=== PATIENT | male | born 1950 | race Caucasian/White ===

== ENCOUNTER 2016-05-21 12:40 | Inpatient (IN) | payer OTHER ==
--- NOTE | 2016-05-21 12:46 | PDOC ---
History of Present Illness <IsmaelArtur - Last Filed: 05/21/16 18:00> - General History Source: Patient Exam Limitations: No Limitations - History of Present Illness Initial Comments: 05/21/16 13:13 The patient is a 65 year old male with significant past medical history of hypertension, hyperlipidemia, CAD s/p CABG, a-fib, CKD, BPH, gout, ETOH use who presents to the emergency department with difficulty walking for the last 4 days. The patient was brought in by ambulance from his assisted living facility. He states that he has been unable to walk secondary to weakness for the last 4 days. He denies any history of fall, injury, or trauma to his low back or bilateral legs. The patient was last discharged from [facility] about 2 months ago, however he ran out of all of his medications and have not taken any medication for the last 4 days. He has not gotten out of bed, eaten or drank for the last 4 days. The patient has a history of alcohol abuse, however he states he has not had a drink in 4-5 months. The patient denies any associated numbness or tingling. The patient denies any abdominal pain, nausea, or vomiting. He denies any chest pain or shortness of breath. The patient denies recent illness, fevers, or chills. <Pilar Peck - Last Filed: 05/27/16 23:45> - General Stated Complaint: UNABLE TO WALK Time Seen by Provider: 05/21/16 12:45 Past History - Past Medical History Anemia: Yes (possible ) Asthma: No Cancer: No Cardiac Disorders: Yes CVA: No COPD: No CHF: No (possible ) Dementia: No Diabetes: No GI Disorders: No Disorders: No HTN: Yes Kidney Stones: No Liver Disease: No Suicide Attempt (Hx): No Seizures: No Thyroid Disease: No - Surgical History Cardiac Surgery: Yes (tripple bypass) Orthopedic Surgery: (right arm surgery in 6th grade) - Family Disease History Family Disease History: Heart Disease: Father - Reproductive History Testicular Surgery: No - Immunization History Immunization Up to Date: No - Psycho/Social/Smoking Cessation Hx Anxiety: No Suicidal Ideation: No Smoking History: Never smoked Have you smoked in the past 12 months: No 'Breaking Loose' booklet given: 07/29/15 Hx Alcohol Use: Yes Drug/Substance Use Hx: No Substance Use Type: Alcohol Hx Substance Use Treatment: Yes <Artur Guevara - Last Filed: 05/21/16 18:00> <Pilar Peck - Last Filed: 05/27/16 23:45> - Past Medical History Allergies/Adverse Reactions: Allergies Allergy/AdvReac Type Severity Reaction Status Date / Time No Known Allergies Allergy Verified 05/21/16 12:52 Home Medications: Ambulatory Orders Metoprolol Succinate [Toprol XL -] 100 mg PO BID 05/21/16 Omeprazole 20 mg PO DAILY 05/21/16 Rosuvastatin [Crestor -] 10 mg PO DAILY 05/21/16 Tamsulosin HCl [Flomax -] 0.4 mg PO DAILY 05/21/16 Ascorbate Calcium [Vitamin C] 1,000 mg PO DAILY 05/22/16 Aspirin [ASA -] 81 mg PO DAILY 05/22/16 Allopurinol [Zyloprim -] 100 mg PO DAILY #10 tab 05/27/16 Ampicillin Trihydrate 500 mg PO TID #21 ml 05/27/16 Diltiazem Cd [Cardizem Cd -] 240 mg PO DAILY #30 cap.cd.24h 05/27/16 Folic Acid - 1 mg PO DAILY tablet 05/27/16 Lactobacillus Acidophilus [Bacid -] 1 each PO BID #60 capsule 05/27/16 Rosuvastatin [Crestor -] 10 mg PO DAILY tablet 05/27/16 Review of Systems - Review of Systems Able to Perform ROS?: Yes Comments:: 05/21/16 13:13 GENERAL/CONSTITUTIONAL: +Weakness. No fever or chills. HEAD, EYES, EARS, NOSE AND THROAT: No change in vision. No ear pain or discharge. No sore throat. CARDIOVASCULAR: No chest pain or shortness of breath. RESPIRATORY: No cough, wheezing, or hemoptysis. GASTROINTESTINAL: No nausea, vomiting, diarrhea or constipation. GENITOURINARY: No dysuria, frequency, or change in urination. MUSCULOSKELETAL: No joint or muscle swelling or pain. No neck or back pain. SKIN: No rash NEUROLOGIC: No headache, vertigo, loss of consciousness, or change in strength/ sensation. ENDOCRINE: No increased thirst. No abnormal weight change. HEMATOLOGIC/LYMPHATIC: No anemia, easy bleeding, or history of blood clots. ALLERGIC/IMMUNOLOGIC: No hives or skin allergy. <Pilar Peck - Last Filed: 05/27/16 23:45> *Physical Exam - Vital Signs Last Vital Signs Temp Pulse Resp BP Pulse Ox 99.8 F H 123 H 18 164/98 100 05/21/16 12:53 05/21/16 12:53 05/21/16 12:53 05/21/16 12:53 05/21/16 12:53 - Physical Exam Comments: 05/21/16 13:13 GENERAL: Awake, alert, and fully oriented, in no acute distress HEAD: No signs of trauma EYES: PERRLA, EOMI, sclera anicteric, conjunctiva clear ENT: Auricles normal inspection, hearing grossly normal, nares patent, oropharynx clear without exudates. +Dry mucosa. NECK: Normal ROM, supple, no lymphadenopathy, JVD, or masses LUNGS: Breath sounds equal, clear to auscultation bilaterally. No wheezes, and no crackles HEART: +Irregularly irregular. Normal S1 and S2, no murmurs, rubs or gallops ABDOMEN: Soft, nontender, normoactive bowel sounds. No guarding, no rebound. No masses EXTREMITIES: +Right 2nd digit with paronychia abscess. Normal range of motion. No clubbing or cyanosis. No cords, erythema, or tenderness NEUROLOGICAL: Cranial nerves II through XII grossly intact. Normal speech SKIN: Warm, Dry, normal turgor, no rashes or lesions noted. <Pilar Peck - Last Filed: 05/27/16 23:45> Procedures - Incision and Drainage I&D Site: Right: Paronychia (right index finger) Betadine cleansed: Yes Anesthesia: 1% Lidocaine Volume(ml): 10 (10cc pus expressed) Attempts: 1 Plain Packing: No Complications: none Dressing: No <Pilar Peck - Last Filed: 05/27/16 23:45> Heart Score/ECG Review - ECG Intrepretation Comment:: 05/21/16 13:14 Vent rate: 158 bpm NC interval: 138 ms QRS duration: 78ms A-fib/flutter Non-specific ST changes <Pilar Peck - Last Filed: 05/27/16 23:45> ED Treatment Course - LABORATORY CBC & Chemistry Diagram: 05/21/16 13:16 05/21/16 13:16 <Artur Guevara - Last Filed: 05/21/16 18:00> - LABORATORY CBC & Chemistry Diagram: 05/27/16 15:30 05/27/16 05:35 <Pilar Peck - Last Filed: 05/27/16 23:45> Medical Decision Making - Medical Decision Making 05/21/16 16:33 65 yo M presents with generalized weakness. Admitted to hospitalist service for UTI, generalized weakness, paronychia. Patient may need possible placement into rehab facility, assisted living. 05/21/16 17:30 Changed admission to inpatient telemetry. We have been unable to control his heart rate with betablockers. <Pilar Peck - Last Filed: 05/27/16 23:45> *DC/Admit/Observation/Transfer - Discharge Dispostion Admit: Yes <Artru Guevara - Last Filed: 05/21/16 18:00> - Attestations Scribe Attestion: 05/21/16 12:57 Documentation prepared by Pilar Peck, acting as regional medical director for Artur Guevara DO. <Pilar Peck - Last Filed: 05/27/16 23:45> Diagnosis at time of Disposition: Generalized weakness, Dehydration, Atrial fib/flutter, transient, Atrial fibrillation with RVR, Atrial flutter with rapid ventricular response Paronychia Qualifiers: Laterality: right Qualified Code(s): L03.011 - Cellulitis of right finger - Discharge Dispostion Disposition: NURSING HOME FACILITY Condition at time of disposition: Improved - Prescriptions
[2016-05-21 12:57] VITALS: BMI 24.0
[2016-05-21] MEDS ORDERED: SODIUM CHLORIDE 1,000 ML IV SCH (13:15)
[2016-05-21 13:41] LABS: BASOPHIL 0.2 % (0-2.0); MCH 31.8 pg (25.7-33.7); MCHC 32.8 g/dl (32.0-35.9); MEAN CELL VOLUME 96.9 fl (80-96); MEAN PLT VOLUME 8.4 fl (7.5-11.1); NEUTROPHILS 91.8 % (42.8-82.8); PLATELET COUNT 530 K/MM3 (134-434); RDW 16.9 % (11.9-15.9)
[2016-05-21 13:52] LABS: INR 1.33 (0.82-1.09); PROTHROMBIN TIME (PATIENT) 14.7 SEC (9.98-11.88)
[2016-05-21 14:11] LABS: ALBUMIN 2.3 g/dl (3.4-5.0); CREATININE 1.7 mg/dL (0.7-1.3)
[2016-05-21 14:13] LABS: BILIRUBIN,TOTAL 1.3 mg/dL (0.2-1.0); TOT PROT 7.1 g/dl (6.4-8.2)
[2016-05-21] MEDS ORDERED: NITROGLYCERIN SUBLINGUAL 1/150 0.4 MG TAB SL ONE (14:14)
[2016-05-21] MEDS ORDERED: ceFAZolin 2 GRAM PREMIX BAG IVPB ONE (14:45)
[2016-05-21 16:19] LABS: URINE APPEARANCE SLCLOUDY; URINE BILIRUBIN NEGATIVE (NEGATIVE); URINE COLOR DKYELLOW; URINE GLUCOSE (UA) 1+ (NEGATIVE); URINE KETONE NEGATIVE (NEGATIVE); URINE NITRITE NEGATIVE (NEGATIVE); URINE UROBILINOGEN 4.0 E.U/dl E.U./dl (0.2-1.0)
[2016-05-21 16:21] LABS: URINE BLOOD 1+ (NEGATIVE); URINE LEUK ESTERASE TRACE (NEGATIVE); URINE PROTEIN 3+ (NEGATIVE)
[2016-05-21 16:22] LABS: URINE MUCUS RARE; URINE RBC 30 /hpf (0-3); URINE WBC 106 /hpf (3-5)
[2016-05-21] MEDS ORDERED: METOPROLOL SUCCINATE 50 MG TAB.SR.24H (FP) PO ONE (16:43)
[2016-05-21] MEDS ORDERED: METOPROLOL SUCCINATE 50 MG TAB.SR.24H (FP) ONE (16:47)
[2016-05-21] MEDS ORDERED: METOPROLOL TARTRATE 50 MG TABLET (FP) PO ONE (17:23)
[2016-05-21] MEDS ORDERED: METOPROLOL TARTRATE 50 MG TABLET (FP) ONE (17:26)
[2016-05-21] MEDS ORDERED: SODIUM CHLORIDE 1,000 ML IV STA (17:30)
--- NOTE | 2016-05-21 17:35 | HP ---
CHIEF COMPLAINT: unable to walk PCP: Dr. Torres Pipe Setter: Kaley Flores Cylinder Checker: Dr. Metz And Taxi Instructor Bus Trolley: [address] [place] [address] ([address] Camarena) HISTORY OF PRESENT ILLNESS: 65 yr old man with HTN, gout, CKD stage 2, afib, hx of triple bypass, and ETOH abuse BIBEMS from assisted living facility after being found immobile in his bed by a friend. For past 2 two weeks he has progressively developed difficulty getting out of bed and generalized weakness. With effort, last week he was able to get to the bathroom but in the last 4 days he has been unable to move due to joint pain and generalized weakness. He has been laying in bed without food, water or medications. He feels that symptoms first started 4 months ago when he stopped drinking alcohol and gradually he has become weaker and weaker. Notes weight loss from 198 to 167 due to poor appetite in past 4 months. Denies loss of consciousness, fall, head trauma, slurred speech, hemiparalysis, loss of muscle tone, back injury, chest pain, SOB. appears confused, towards the end of the conversation he said I could see his medications when I come to his house tomorrow, then said he stopped drinking on apr 11 2016, when expressed that the time frame of 4 months and apr 11 do not coincide as the same time frame he appeared confused. Called pharmacist, who is familiar with patient. Pharmacist had called patient last week about not having refills for medications since january 2016, at the time pharmacist says patient was alert, coherent, answering questions appropriately and had not expressed any distress. Patient is a poor historian. ER course was notable for: (1) I&D of abscess with right index finger, 10cc of pus expressed (2) hand xray (3) ancef 1gm Recent Travel: none PAST MEDICAL HISTORY: HTN Gout CKD stage 2 Afib ETOH abuse - no seizures with withdrawals, just the "shakes" 2-3 days post drinking. Last colonoscopy 5 yrs ago, benign polyps. PAST SURGICAL HISTORY: triple bypass ([facility] 2012) Social History: lives in assisted living facility, Smoking: denies Alcohol:started age [age], mainly binge drinks, upto 2 quarts of vodka in a sitting, 1-2x per week, (abstinent for 4 months 3 days) Drugs: denies Allergies No Known Allergies Allergy (Verified 05/21/16 12:52) HOME MEDICATIONS: last fill 01/[address] Lock [phone] omeprazole 20 1 daily procardia xl 30 1 tab qd toprol xl 100mg 1 t bid flomax .4 1 t daily losartan/hctz 50/12.5 1 qd folic acid 1t daily crestor 10mg 1 daily colchicine 0.6 1 daily spoke last week with pharmacist, coherent, alert, oriented. apparently scheduled to for dr appointment. Medication Instructions Recorded Aspirin [ASA -] 81 mg PO DAILY 03/29/15 Acetaminophen [Tylenol .Regular 650 mg PO Q6H PRN #0 tablet 01/06/16 Strength -] Folic Acid - 1 mg PO DAILY #30 tablet 01/06/16 Thiamine HCl [Vitamin B1 -] 100 mg PO DAILY #30 tablet 01/06/16 Colchicine 0.6 mg PO DAILY 01/17/16 Omeprazole 20 mg PO DAILY 01/17/16 Rosuvastatin Calcium [Crestor] 10 mg PO DAILY 01/17/16 Tamsulosin HCl 0.4 mg PO DAILY 01/17/16 Allopurinol [Zyloprim -] 100 mg PO DAILY #30 tablet 02/29/16 Ampicillin Trihydrate 500 mg PO Q8H #15 capsule 02/29/16 Diltiazem Cd [Cardizem Cd -] 120 mg PO DAILY #30 cap.cd.24h 02/29/16 Metoprolol Succinate [Toprol XL -] 100 mg PO BID #60 tab.sr.24h 02/29/16 Multivitamins [Multivit ([facility] 1 tab PO DAILY #30 tab 02/29/16 Formulary)] Unobtainable 05/21/16 REVIEW OF SYSTEMS CONSTITUTIONAL: Present: generalized weakness, loss of appetite, weight change Absent: fever, chills, diaphoresis, malaise, HEENT: Absent: rhinorrhea, nasal congestion, throat pain, throat swelling, difficulty swallowing, mouth swelling, ear pain, eye pain, visual changes CARDIOVASCULAR: Present: irregular heart rate, Absent: chest pain, syncope, palpitations, lightheadedness, peripheral edema RESPIRATORY: Absent: cough, shortness of breath, dyspnea with exertion, orthopnea, wheezing, stridor, hemoptysis GASTROINTESTINAL: Absent: abdominal pain, abdominal distension, nausea, vomiting, diarrhea, constipation, melena, hematochezia GENITOURINARY: Absent: dysuria, frequency, urgency, hesitancy, hematuria, flank pain, genital pain MUSCULOSKELETAL: Present: arthralgia, joint swelling, Absent: myalgia, back pain, neck pain SKIN: Absent: rash, itching, pallor HEMATOLOGIC/IMMUNOLOGIC: Absent: easy bleeding, easy bruising, lymphadenopathy, frequent infections ENDOCRINE: Absent: unexplained weight gain, unexplained weight loss, heat intolerance, cold intolerance NEUROLOGIC: Absent: headache, focal weakness or paresthesias, dizziness, unsteady gait, seizure, mental status changes, bladder or bowel incontinence PSYCHIATRIC: Absent: anxiety, depression, suicidal or homicidal ideation, hallucinations. PHYSICAL EXAMINATION Vital Signs - 24 hr 05/21/16 12:53 Temperature 99.8 F H Pulse Rate 123 H Respiratory 18 Rate Blood Pressure 164/98 O2 Sat by Pulse 100 Oximetry (%) GENERAL: Awake, alert, and oriented to person, age, date, location, in no acute distress. Malodorous. HEAD: Normal with no signs of trauma. EYES: Pupils equal, round and reactive to light, extraocular movements intact, sclera anicteric, conjunctiva clear. No lid lag. EARS, NOSE, THROAT: Ears normal, nares patent, oropharynx clear without exudates. moist mucous membranes. NECK: Normal range of motion, supple without lymphadenopathy, JVD, or masses. no bruits LUNGS: Breath sounds equal, clear to auscultation bilaterally. No wheezes, and no crackles. No accessory muscle use. HEART: irregular, tachycardic, normal S1 and S2 without murmur, rub or gallop. ABDOMEN: Soft, nontender, not distended, normoactive bowel sounds, no guarding, no rebound, no masses. MUSCULOSKELETAL: No CVA tenderness. UPPER EXTREMITIES: 2+ pulses, warm, well-perfused. No cyanosis. cap refill <2 seconds. No peripheral edema. 5/5 strength at shoulder with extension and flexion, 3/5 biceps, triceps. ttp with soft mobile erythematous mass at right elbow, no joint crepitus in b/l UE. right index finger with erythematous ttp draining abscess. multiple PIP and DIP joints with small ttp mobile nodules. unable to make a full fist in b/l hands. LOWER EXTREMITIES: 2+ pulses, warm, well-perfused. No calf tenderness. b/l knees extremely ttp no erythema, with warmth medially,no effusion, unable to bend knee, passive motion limited due to pain. hips no ttp. 1/5 strength in b/l LE at hips. left foot with second hammertoe. right foot with eschar on DIP of second toe. sensation intact throughout legs. NEUROLOGICAL: Cranial nerves II-XII intact. Normal speech. SKIN: Warm, dry, normal turgor, no rashes noted. Laboratory Results - last 24 hr 05/21/16 05/21/16 05/21/16 13:16 13:16 13:16 WBC 20.0 H D RBC 4.11 Hgb 13.1 D Hct 39.8 D MCV 96.9 H MCHC 32.8 RDW 16.9 H D Plt Count 530 H D MPV 8.4 D Neutrophils % 91.8 H D Lymphocytes % 3.3 L D Monocytes % 4.7 Eosinophils % 0.0 D Basophils % 0.2 INR 1.33 H D Sodium 136 Potassium 4.6 Chloride 98 Carbon Dioxide 23 Anion Gap 15 BUN 39 H Creatinine 1.7 H Creat Clearance w eGFR 40.65 Random Glucose 110 H D Uric Acid Calcium 11.0 H D Total Bilirubin 1.3 H D AST 40 H D ALT 62 D Alkaline Phosphatase 140 H D Total Protein 7.1 Albumin 2.3 L D Lipase 81 05/21/16 05/21/16 05/21/16 13:16 15:45 16:11 Uric Acid 10.0 H D Urine Color Dkyellow Urine Appearance Slcloudy Urine pH 6.0 Ur Specific [place] 1.020 Urine Protein 3+ H D Urine Glucose (UA) 1+ H Urine Ketones Negative Urine Blood 1+ H Urine Nitrite Negative Urine Bilirubin Negative Urine Urobilinogen 4.0 e.u/dl Ur Leukocyte Esterase Trace H Urine RBC 30 Urine WBC 106 Ur Epithelial Cells Rare Urine Mucus Rare Alcohol, Quantitative < 5.0 ASSESSMENT/PLAN: 65 yr old man with afib, HTN, CAD s/p CABG, gout, ETOH abuse BIBEMS for 4 days of immobility admitted to telemetry for atrial flutter, sepsis from UTI/finger abscess and gout. - joint pain likely from gout #Sepsis (tachycardia, wbc of 22) UTI(u/a with leuk +, elevated WBC) and Abscess in right index finger - zosyn 2.25 q6h (for broader coverage, previous UTIs with e.faecalis and pseudomonas) -- renal dosing - Dr. montano consulted - IVF NS @100mls/hr - s/p I &D - wound cx and ucx pending - esr and hand xray to r/o osteomyelitis - continous bedrest - physical therapy once pain controlled #Dehydration/generalized weakness - likely due to immobility from joint pain due to acute gout flare - IVF NS @100mls/hr - check TSH level #Gout (elevated uric acid level, multiple joints with tophi and tenderness) - prednisone 60mg daily - although NSAIDs better for pain control for acute gout, given renal impairment would limit NSAID use - will hold colchicine due to renal impairment #Afib/Aflutter on EKG currently and Hx - CHADVASC 2 (age and HTN), no anticoagulation given hx of noncompliance, hx of falls and ETOH abuse. - past home medications restarted, procardia and toprol. - hold diuretics given recent dehydration - Dr. Ni consulted #HTN - toprol xl 100mg po bid #BPH - flomax .4 1 tab daily #CAD - crestor 10mg 1 tab daily #Etoh abuse - not currently in withdrawl, ETOH level <5 - CIWA 0 - MVI - folic acid DVT - heparin TID Diet: low sodium Visit type - Emergency Visit Emergency Visit: Yes ED Registration Date: 05/21/16 Care time: The patient presented to the Emergency Department on the above date and was hospitalized for further evaluation of their emergent condition. - New Patient This patient is new to me today: Yes Date on this admission: 05/21/16 - Critical Care Critical Care patient: No
[2016-05-21] MEDS: SODIUM CHLORIDE 1,000 ML IV SCH (18:27)
--- NOTE | 2016-05-21 18:31 | PN ---
Teaching Attending Note Name of Resident: Michael Ferguson ATTENDING PHYSICIAN STATEMENT I saw and evaluated the patient. I reviewed the resident's note and discussed the case with the resident. I agree with the resident's findings and plan as documented. SUBJECTIVE: This is a 65-year-old man with a history of alcohol abuse, HTN, hyperlipidemia, atrial flutter, CAD, CABG, gout, BPH, stage 3 CKD who came to the ER complaining of weakness. He says he has not been able to get out of bed for the last 4 days. He says he has not been eating or drinking. He denies using alcohol in the last 4 months. He denies fever, chills, chest pain, cough, shortness of breath, palpitations, abdominal pain, nausea, vomiting, dysuria. He has not been taking his medications since he ran out. OBJECTIVE: Vital Signs Period Temp Pulse Resp BP Sys/Reed Pulse Ox Last 24 Hr 99.8 F 123 18 164/98 100 HEART: Irregular, tachycardic LUNGS: Clear ABDOMEN: Soft, non-tender, non-distended, normal BS EXTREMITIES: No edema ASSESSMENT AND PLAN: This is a 65-year-old man with a history of alcohol abuse, HTN, hyperlipidemia, atrial flutter, CAD, CABG, gout, BPH, stage 3 CKD who presents to the ER with generalized weakness stating he has been unable to get out of bed and has not been eating or drinking x 4 days. 1. Sepsis secondary to right 2nd finger abscess, UTI - I&D done in ER - follow up culture - Follow up urine culture - IV fluid - Start Zosyn (history of E. faecalis, Pseudomonas UTIs) 2. Dehydration - IV fluid 3. Generalized weakness - Physical therapy 4. Acute gout - Start Prednisone - Hold Colchicine, NSAIDs secondary to elevated creatinine - Will need to resume Allopurinol once acute episode resolves 5. Atrial flutter - Resume Toprol XL, Cardizem CD for rate control - Monitor on telemetry - Not on anticoagulation secondary to falls, non-compliance 6. CAD, history of CABG - Restart aspirin, Toprol XL, Crestor 7. Hypertension - Restart Toprol XL, Cardizem CD 8. Hyperlipidemia - Restart Crestor 9. BPH - Restart Flomax 10. History of alcohol abuse - Patient states he has been sober x 4 months - Thiamine, folic acid, multivitamin 11. Stage 3 CKD - Creatinine stable
[2016-05-21 19:48] LABS: TROPONIN I < 0.02 ng/ml (0.00-0.05)
[2016-05-21] MEDS ORDERED: ACETAMINOPHEN 500 MG TABLET (FP) PO ONE (20:38)
[2016-05-21] MEDS: HEPARIN NA (PORCINE) 5,000 UNITS/ML 1ML VIAL SQ SCH (21:04)
[2016-05-21] MEDS ORDERED: METOPROLOL SUCCINATE 100 MG TAB.SR.24H (FP) PO SCH (22:00)
--- NOTE | 2016-05-21 22:54 | EKG ---
Test Reason : Blood Pressure : / mmHG Vent. Rate : 158 BPM Atrial Rate : 288 BPM P-R Int : 138 ms QRS Dur : 078 ms QT Int : 280 ms P-R-T Axes : 257 004 232 degrees QTc Int : 454 ms POOR DATA QUALITY, INTERPRETATION MAY BE ADVERSELY AFFECTED UNDETERMINED RHYTHM , POSSIBLY SVT WITH ABERRANT CONDUCTION ABNORMAL ECG WHEN COMPARED WITH ECG OF 25-FEB-2016 05:40, SIGNIFICANT CHANGES HAVE OCCURRED Confirmed by CONCHA KELSEY, KB ([id number]) on 05/21/2016 10:54:35 PM Referred By: Confirmed By:KB KERN MD
[2016-05-21] MEDS ORDERED: PIPERACILLIN/TAZOB 2.25 GM 50 ML IVPB ONE (23:00)
[2016-05-22] MEDS: HEPARIN NA (PORCINE) 5,000 UNITS/ML 1ML VIAL SQ SCH ×3 (05:09→21:16)
[2016-05-22] MEDS: SODIUM CHLORIDE 1,000 ML IV SCH ×2 (05:10→14:30)
[2016-05-22 07:26] LABS: BASOPHIL 0.3 % (0-2.0); EOSINOPHIL 0.2 % (0-4.5); MCHC 32.8 g/dl (32.0-35.9); MEAN CELL VOLUME 97.7 fl (80-96); MEAN PLT VOLUME 8.4 fl (7.5-11.1); NEUTROPHILS 87.9 % (42.8-82.8); PLATELET COUNT 389 K/MM3 (134-434); WHITE BLOOD COUNT 14.5 K/mm3 (4.0-10.0)
[2016-05-22 08:05] LABS: CALCIUM 9.7 mg/dL (8.5-10.1); MAGNESIUM 2.2 mg/dL (1.8-2.4)
[2016-05-22] MEDS ORDERED: predniSONE 20 MG TABLET (UD) PO ONE (08:07)
[2016-05-22 08:17] LABS: BILIRUBIN,TOTAL 0.6 mg/dL (0.2-1.0); CREATININE 1.5 mg/dL (0.7-1.3); THYROID STIMULATING HORMONE 1.41 uIU/ml (0.358-3.74); TOT PROT 5.7 g/dl (6.4-8.2)
[2016-05-22] MEDS ORDERED: dilTIAZem HCL 60 MG TABLET (FP) ONE (08:35)
[2016-05-22] MEDS: PANTOPRAZOLE 20 MG TABLET (FP) PO SCH (09:14)
[2016-05-22] MEDS: FOLIC ACID 1 MG TABLET (FP) PO SCH (09:14)
[2016-05-22] MEDS: ROSUVASTATIN CA 10 MG TABLET (FP) PO SCH (09:14)
[2016-05-22] MEDS: METOPROLOL SUCCINATE 100 MG TAB.SR.24H (FP) PO SCH ×2 (09:14→21:16)
[2016-05-22] MEDS: MULTIVITAMINS THER W-MINERALS COMBO TABLET (FP) PO SCH (09:15)
[2016-05-22] MEDS: TAMSULOSIN HCL 0.4 MG CAP.ER.24H (FP) PO SCH (09:15)
[2016-05-22] MEDS: predniSONE 20 MG TABLET (UD) PO SCH (09:15)
--- NOTE | 2016-05-22 09:50 | PN ---
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 Would continue ASA for both CAD and stroke prevention in Aflutter. Previous records (see note from Dr. Robert last admission) indicate heart rate usually controlled with combo of Cardizem CD 120 and Toprol Xl 100 BID. Cardizem can be titrated as heart rate and BP allow. He also has hx of non-adherence to medical Rx. and therefore DCCV was a poor option. Treatment of digit infection as per ID.
[2016-05-22] MEDS ORDERED: NIFEdipine E.R. 30 MG TABLET (FP) PO SCH (10:00)
[2016-05-22] MEDS ORDERED: ASPIRIN 81 MG CHEWABLE TABLETS PO SCH (10:00)
--- NOTE | 2016-05-22 11:05 | CONS ---
CARDIOLOGY CONSULTATION DATE OF CONSULTATION: 05/22/2016 REQUESTED BY: Amara Jane MD for atrial flutter. HISTORY OF PRESENT ILLNESS: HISTORY OF PRESENT ILLNESS: The patient is a 65-year-old male with past medical history of coronary artery disease status post CABG 4 years ago at [facility] as per his report, chronic atrial flutter, who presents to the emergency room for bilateral leg weakness and inability to ambulate. In the emergency department, he was noted to have rapid atrial flutter as well as a likely infection of 1 of the digits on his right hand. The patient denies chest pain, shortness of breath. He does feel palpitations. Review of previous hospital records shows that he was seen by another cardiology group on the last admission for atrial flutter. Mr. Rubalcava was deemed a high-risk candidate for full anticoagulation due to his history of alcoholism and multiple falls. He was maintained on aspirin therapy for both his history of coronary disease and for thromboembolic protection in atrial flutter. Records indicate that his heart rate was well-controlled in the hospital on Toprol XL 100 b.i.d. and Cardizem CD 120, but he at times was not adherent to outpatient therapy. Infectious Disease is consulted for treatment of his digit infection. Cultures are pending. PAST MEDICAL HISTORY: His past medical history is as eluded to above and includes: 1. Coronary disease status post CABG 4 years ago. He denies history of myocardial infarction. 2. Chronic atrial flutter, which appears to be typical atrial flutter. 3. GERD. 4. Alcoholism. 5. Hyperlipidemia. ALLERGIES: He has no known drug allergies. MEDICATIONS AT HOME: 1. Aspirin 81 mg daily. 2. Cardizem CD 120 daily. 3. Folic acid. 4. Subcutaneous heparin 5000 subcutaneously t.i.d. 5. Toprol XL 100 b.i.d. 6. Multivitamin. 7. Protonix 20 daily. 8. Zosyn. 9. Prednisone 60 daily. 10. Crestor 10 daily. 11. Flomax 0.4 daily. FAMILY HISTORY: Noncontributory. SOCIAL HISTORY: Former smoker. States he quit drinking 4 months ago. States he has been bed-bound for the last 4 months and has had progressive inability to ambulate. PHYSICAL EXAM: General: He is comfortable but was febrile to 100.7. Vital signs: Temperature 100.7. Blood pressure 128/90. Heart rate has been in atrial flutter in the 130s on telemetry with no significant pauses. O2 saturation is 99% on room air. HEENT: Neck: No bruits. Heart: There is an old healed median sternotomy incision. Heart was irregular with no murmurs. Lungs: Chest clear with no rales. Abdomen: Soft, nontender. Extremities: No significant pitting edema. EKG: His 12-lead EKG was reviewed and shows what appears to be typical atrial flutter at 119 beats per minute with variable block and VPCs. RADIOGRAPHIC FINDINGS: His chest x-ray showed no evidence of CHF or infiltrate. His hand x-ray showed right hand bony destruction around the second distal interphalangeal joint and increased soft tissue swelling, consistent with gout versus osteoarthritis. ASSESSMENT: 1. Coronary disease status post coronary artery bypass graft. 2. Mixed valvular heart disease including mild MR and moderate AR. 3. Chronic atrial flutter, typical. 4. History of alcoholism. 5. Possible osteomyelitis, second digit right hand. RECOMMENDATIONS: 1. According to a full review of previous records, the patient was deemed a high-risk candidate for full anticoagulation due to his history of alcoholism and history of multiple falls. Therefore, it is reasonable to continue aspirin therapy for both coronary artery disease as well as reduction of stroke/stroke prevention with his history of atrial flutter. 2. Previous records (See note from Dr. Robert, last admission) indicated that his heart rate was well controlled with a combination of Cardizem CD 120 and Toprol XL 100 b.i.d., which we should resume on this admission and monitor him on telemetry. Cardizem can be titrated as heart rate and blood pressure require. He does have a history of non-adherence to medical therapy, and therefore DC cardioversion was a poor option as it would have necessitated 4 weeks of anticoagulation. 3. Treatment of digit infection/possible osteoarthritis as per Infectious Disease. 4. Strongly recommend neurology consultation for evaluation of his lower extremity weakness. AAYUSH SPAIN M.D. [id number] cc: MD Morteza Salter MD
[2016-05-22] MEDS: ACETAMINOPHEN 325 MG TABLET (FP) PO PRN (12:46)
--- NOTE | 2016-05-22 13:56 | PN ---
<Amara Jane - Last Filed: 05/22/16 14:20> Physical Exam: ATTENDING PHYSICIAN STATEMENT I saw and evaluated the patient. I reviewed the resident's note and discussed the case with the resident. I agree with the resident's findings and plan as documented. SUBJECTIVE: OBJECTIVE: ASSESSMENT AND PLAN: <Michael Ferguson - Last Filed: 05/22/16 19:39> Physical Exam: SUBJECTIVE: Patient seen and examined. c/o pain in his knees, hands, and inability to get out of bed. Denied chest pain, shortness of breath, palpitations, lightheadedness. OBJECTIVE: Vital Signs Period Temp Pulse Resp BP Sys/Reed Pulse Ox Last 24 Hr 98.2 F-100.7 F 56-137 18-20 116-143/74-94 97-99 GENERAL: The patient is awake, alert, and fully oriented, in no acute distress. EYES: PERRL, extraocular movements intact ENT: poor oral hygiene with missing dentition. oropharynx clear without exudates , moist mucous membranes. NECK: Trachea midline, full range of motion, supple. no carotid bruits. no LAD, no thyromegaly. LUNGS: Breath sounds equal, clear to auscultation bilaterally, no wheezes, no crackles, no accessory muscle use. HEART: tachycardic, S1, S2 without murmur, rub or gallop. ABDOMEN: Soft, nontender, nondistended, normoactive bowel sounds EXTREMITIES: UPPER EXTREMITIES: 2+ pulses, warm, well-perfused. No peripheral edema. 5/5 strength at shoulder with extension and flexion, 3/5 biceps, triceps. ttp with soft mobile erythematous mass at right elbow, no joint crepitus in b/l UE in shoulder, elbow or wrist. right index finger with erythematous ttp swelling with scant drianage on dorsum and lateral side, in tongue depressor splint. multiple PIP and DIP joints with small ttp mobile nodules. unable to make a full fist in b/l hands. sensation intact. Left 4th digit with ttp PIP joint. LOWER EXTREMITIES: 2+ pulses, warm, well-perfused. No calf tenderness. b/l knees extremely ttp no erythema, with warmth medially,no effusion, unable to bend knee, passive motion limited due to pain. hips no ttp. 1/5 strength in b/l LE at hips. left foot with second hammertoe. right foot with eschar on DIP of second toe. sensation intact throughout legs. ttp in 4th digit in right foot, medial maleolus b/l PSYCH: Normal mood, normal affect. Laboratory Results - last 24 hr 05/21/16 05/22/16 05/22/16 19:17 06:00 06:00 WBC 14.5 H RBC 3.32 L Hgb 10.6 L D Hct 32.4 L D MCV 97.7 H MCHC 32.8 RDW 17.0 H Plt Count 389 D MPV 8.4 Neutrophils % 87.9 H Lymphocytes % 6.0 L D Monocytes % 5.6 Eosinophils % 0.2 D Basophils % 0.3 ESR Sodium 138 Potassium 4.4 Chloride 103 Carbon Dioxide 25 Anion Gap 10 BUN 39 H Creatinine 1.5 H Creat Clearance w eGFR 46.97 Random Glucose 87 D Hemoglobin A1c % Lactic Acid Calcium 9.7 Magnesium 2.2 D Total Bilirubin 0.6 D AST 35 ALT 38 D Alkaline Phosphatase 115 Ammonia Creatine Kinase 41 Troponin I < 0.02 Total Protein 5.7 L Albumin 2.0 L TSH 1.41 D 05/22/16 05/22/16 05/22/16 06:00 06:00 08:30 WBC RBC Hgb Hct MCV MCHC RDW Plt Count MPV Neutrophils % Lymphocytes % Monocytes % Eosinophils % Basophils % ESR > 130 H Sodium Potassium Chloride Carbon Dioxide Anion Gap BUN Creatinine Creat Clearance w eGFR Random Glucose Hemoglobin A1c % 5.8 Lactic Acid Calcium Magnesium Total Bilirubin AST ALT Alkaline Phosphatase Ammonia 13.46 Creatine Kinase Troponin I Total Protein Albumin TSH 05/22/16 08:30 WBC RBC Hgb Hct MCV MCHC RDW Plt Count MPV Neutrophils % Lymphocytes % Monocytes % Eosinophils % Basophils % ESR Sodium Potassium Chloride Carbon Dioxide Anion Gap BUN Creatinine Creat Clearance w eGFR Random Glucose Hemoglobin A1c % Lactic Acid 1.336 Calcium Magnesium Total Bilirubin AST ALT Alkaline Phosphatase Ammonia Creatine Kinase Troponin I Total Protein Albumin TSH Active Medications Generic Name Dose Route Start Last Admin Trade Name Freq PRN Reason Stop Dose Admin Acetaminophen 650 mg 05/22/16 12:23 05/22/16 12:46 Tylenol - PO 650 mg Q6H PRN Administration FEVER OR PAIN Aspirin 81 mg 05/22/16 10:00 05/22/16 10:40 Asa - PO 81 mg DAILY ESME Administration Diltiazem HCl 120 mg 05/22/16 10:00 05/22/16 09:15 Cardizem Cd - PO 120 mg DAILY ESME Administration Folic Acid 1 mg 05/22/16 10:00 05/22/16 09:14 Folic Acid - PO 1 mg DAILY ESME Administration Heparin Sodium (Porcine) 5,000 unit 05/21/16 22:00 05/22/16 05:09 Heparin - SQ 5,000 unit TID ESME Administration Sodium Chloride 1,000 mls @ 125 mls/hr 05/21/16 18:15 05/22/16 05:10 Normal Saline - IV 125 mls/hr ASDIR ESME Administration Piperacillin Sod/Tazobactam Sod 50 mls @ 100 mls/hr 05/22/16 09:00 Zosyn 2.25gm Ivpb (Pre-Docked) IVPB Q6H-IV ESME Metoprolol Succinate 100 mg 05/22/16 10:00 05/22/16 09:14 Toprol Xl - PO 100 mg BID ESME Administration Multivitamins/Minerals 1 each 05/22/16 10:00 05/22/16 09:15 Theragran-M PO 1 each DAILY ESME Administration Pantoprazole Sodium 20 mg 05/22/16 10:00 05/22/16 09:14 Protonix - PO 20 mg DAILY ESME Administration Prednisone 60 mg 05/22/16 10:00 05/22/16 09:15 Deltasone - PO 60 mg DAILY ESME Administration Rosuvastatin Calcium 10 mg 05/22/16 10:00 05/22/16 09:14 Crestor - PO 10 mg DAILY ESME Administration Tamsulosin HCl 0.4 mg 05/22/16 10:00 05/22/16 09:15 Flomax - PO 0.4 mg DAILY ESME Administration ASSESSMENT/PLAN: 65 yr old man with afib, HTN, CAD s/p CABG, gout, ETOH abuse BIBEMS for 4 days of immobility admitted to telemetry for atrial flutter, sepsis from UTI/finger abscess and gout. #LE weakness - Lumbar MRI with and w/o contrast to rule out spinal mass - head CT negative for acute infarct, hemorrhage, mass - TSH/vit B12/HbA1c wnl, unlikely to be cause by thyroid dysfunction, vitamin deficiency or diabetic neuropathy #Sepsis (tachycardia, wbc of 22) UTI(u/a with leuk +, elevated WBC) and Abscess in right index finger - improving - Unasyn 3gm q8hr IVPB - cleocin 300mg q6hr po --start 05/22/2016 - Dr. montano consulted - IVF NS @125mls/hr - wound cx pending - ucx not received at admission, patient already started on abx. - esr and hand xray to r/o osteomyelitis: ESR elevated, hand xray with bone destruction, will require MRI for further evaluation - continuous bedrest - physical therapy consulted #Gout (elevated uric acid level, multiple joints with tophi and tenderness) - prednisone 60mg daily - although NSAIDs better for pain control for acute gout, given renal impairment would limit NSAID use - will hold colchicine due to renal impairment - tylenol for pain #Afib/Aflutter on EKG currently and Hx - CHADVASC 2 (age and HTN), no anticoagulation given hx of noncompliance, hx of falls and ETOH abuse. - cardizem CD 120mg - toprol xl 100mg BID - hold diuretics given recent dehydration - Dr. Ni consulted #HTN - toprol xl 100mg po bid #BPH - flomax .4 1 tab daily #CAD - crestor 10mg 1 tab daily #Etoh abuse - not currently in withdrawl, ETOH level <5 - CIWA 0 - MVI - folic acid - thiamine CKD stage 2 (baseline 1.5-2.0) - stable, improved Cr currently 1.5 - renally dose medications when appropriate DVT - heparin TID Diet: low sodium Visit type - Emergency Visit Emergency Visit: No - New Patient This patient is new to me today: No - Critical Care Critical Care patient: No - Discharge Referral Referred to [facility] No
--- NOTE | 2016-05-22 16:28 | CON.NEURO ---
Consult Consult Specialty:: Neurology Reason for Consultation:: generalized weakness - History of Present Illness History of Present Illness: 65 yr old man with HTN, gout, CKD stage 2, AFib., hx of triple bypass, and ETOH abuse BIBEMS from assisted living facility after being found immobile in his bed by a friend. For past four months he has progressively developed difficulty walking, in the last two weeks getting out of bed and generalized weakness. With effort, last week he was able to get to the bathroom but in the last 4 days he has been unable to move due to joint pain and generalized weakness. He has been laying in bed without food, water or medications. He feels that symptoms first started 4 months ago when he stopped drinking alcohol and gradually he has become weaker and weaker. Denies loss of consciousness, fall, head trauma, slurred speech, hemiparalysis, loss of muscle tone, back injury, chest pain, SOB. - History Source Limitations to Obtaining History: Clinical Condition - Past Medical History Cardio/Vascular: Yes: AFIB, CAD (s/p 3V CABG at [place] 3 years ago), HTN Renal/: Yes: Renal Inusuff Rheumatology: Yes: Gout - Past Surgical History Past Surgical History: Yes: CABG - Alcohol/Substance Use Hx Alcohol Use: Yes (last drink 4-5 months ago) - Smoking History Smoking history: Former smoker Have you smoked in the past 12 months: No Home Medications - Allergies Allergies/Adverse Reactions: Allergies Allergy/AdvReac Type Severity Reaction Status Date / Time No Known Allergies Allergy Verified 05/21/16 12:52 - Home Medications Home Medications: Ambulatory Orders Colchicine [Colcrys -] 0.6 mg PO DAILY 05/21/16 Losartan/Hydrochlorothiazide [Losartan-Hctz 50-12.5 mg Tab] 1 each PO DAILY 05/06 Metoprolol Succinate [Toprol Xl -] 100 mg PO BID 05/21/16 Nifedipine [Procardia Xl] 30 mg PO DAILY 05/21/16 Omeprazole 20 mg PO DAILY 05/21/16 Rosuvastatin [Crestor -] 10 mg PO DAILY 05/21/16 Tamsulosin HCl [Flomax] 0.4 mg PO DAILY 05/21/16 Ascorbate Calcium [Vitamin C] 1,000 mg PO DAILY 05/22/16 Aspirin [ASA -] 81 mg PO DAILY 05/22/16 Family Disease History - Family Disease History Family Disease History: Heart Disease: Father Review of Systems - Review of Systems Constitutional: reports: Loss of Appetite, Weakness Eyes: reports: No Symptoms HENT: reports: No Symptoms Neck: reports: No Symptoms Cardiovascular: reports: No Symptoms Respiratory: reports: No Symptoms Gastrointestinal: reports: No Symptoms Genitourinary: reports: No Symptoms Breasts: reports: No Symptoms Reported Musculoskeletal: reports: Muscle Weakness Neurological: reports: Numbness, Parasthesia, Pre-Existing Deficit, Unsteady Gait (for the last four months), Weakness (four months) Endocrine: reports: No Symptoms Hematology/Lymphatic: reports: No Symptoms Psychiatric: reports: No Symptoms Physical Exam-Neuro Vital Signs: Vital Signs Temperature 98.6 F 05/22/16 14:35 Pulse Rate 115 H 05/22/16 14:35 Respiratory Rate 20 05/22/16 14:35 Blood Pressure 133/65 05/22/16 14:35 O2 Sat by Pulse Oximetry (%) 99 05/22/16 09:00 Constitutional: Yes: No Distress, Calm, Pallor Neck: Yes: Supple, Trachea Midline Cardiovascular: Yes: Regular Rate and Rhythm, Pulse Irregular, S1, S2 Respiratory: Yes: Regular, CTA Bilaterally Gastrointestinal: Yes: Normal Bowel Sounds, Soft Renal/: Yes: WNL Musculoskeletal: Yes: Back Pain, Muscle Weakness, Other (right digit 2 swollen, red, pain, both ankles pain, warm, swollen. ) Edema: Yes Edema: LUE: 1+, RUE: 1+, LLE: 2+, RLE: 2+ Psychiatric: Yes: Alert, Oriented Labs: CBC, BMP 05/22/16 06:00 05/22/16 06:00 INR, PTT INR 1.33 (0.82-1.09) H D 05/21/16 13:16 - Neuro Exam Level Of Consciousness: Yes: Oriented to Person, Oriented to Place Eyes: Yes: PERRLA Speech: WNL Dominant Hand: Right Cranial Nerves II-XII Intact: Yes Gag: Present DTR's: 0 Left Achilles, 0 Right Achilles, 1+ Left Bicep, 1+ Right Bicep, 1+ Left Tricep, 1+ Right Tricep, 1+ Left Brachioradialis, 1+ Right Brachioradialis Babinski: Absent Response to light touch: Normal Response to pain prick: Normal Response to temperature: Normal, Abnormal (LE decreased propioception and temperature) Movement Disorders: Asterixis, Tremors Coordination: Normal: Finger to Nose (ataxia), Heel to Fishman Motor Strength: 2/5: Left Leg, Right Leg, 5/5: Left Arm, Right Arm Problem List - Problems (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 For past four months he has progressively developed difficulties walking to the point that he couldn't get out of bed in the last four days. He feels that symptoms first started 4 months ago when he stopped drinking alcohol and gradually he has become weaker and weaker. Denies loss of consciousness, fall, head trauma, slurred speech, hemiparalysis, loss of muscle tone, back injury, chest pain, SOB. At the examination he has right digit 2 red, swollen, both ankles are swollen and extreme pain with touch, movement. paraplegia LE Impression: paraplegia due to vitamin B12 deficiency, possible CIDP, acute gout attack. Plan: - start B12 im. daily, banana bag daily, check B12, folate level. - decadrone iv. 12mg. for gout acute - ESR >130 - ivfluids - MRI L spine w/wo contrast to rule out mass - spinal fluid interventional radiology CSF for protein, opening pressure, cytology, glucose, protein to rule out CIDP - DVT prophylaxis with lovenox. - restart his asa, statin, Thank you for this consult.
[2016-05-22] MEDS: CYANOCOBALAMIN (VITAMIN B-12) 1000 MCG/1 ML VIAL IM SCH (16:58)
[2016-05-22] MEDS ORDERED: FOLIC ACID INJECTION - 1 MG, THIAMINE HCL 100 MG, MULTIVIT INJECTION ADULT 10 ML in SOD... IVPB ONE (17:08)
[2016-05-22] MEDS ORDERED: DEXAMETHASONE SOD PHOSPHATE 20 MG/5 ML VIAL IVPB ONE (17:09)
--- NOTE | 2016-05-22 17:29 | EKG ---
Test Reason : Blood Pressure : / mmHG Vent. Rate : 116 BPM Atrial Rate : 267 BPM P-R Int : 130 ms QRS Dur : 080 ms QT Int : 332 ms P-R-T Axes : 065 -13 191 degrees QTc Int : 461 ms POOR DATA QUALITY, INTERPRETATION MAY BE ADVERSELY AFFECTED UNDETERMINED RHYTHM SEPTAL INFARCT , AGE UNDETERMINED INFERIOR INFARCT , AGE UNDETERMINED ABNORMAL ECG WHEN COMPARED WITH ECG OF 21-MAY-2016 17:14, CURRENT UNDETERMINED RHYTHM PRECLUDES RHYTHM COMPARISON, NEEDS REVIEW Confirmed by KB KERN MD ([id number]) on 05/22/2016 5:29:15 PM Referred By: Confirmed By:KB KERN MD
[2016-05-22] MEDS ORDERED: DEXAMETHASONE SOD PHOSPHATE 4 MG/1 ML VIAL IVPB ONE (17:30)
--- NOTE | 2016-05-22 17:31 | EKG ---
Test Reason : Blood Pressure : / mmHG Vent. Rate : 142 BPM Atrial Rate : 147 BPM P-R Int : 000 ms QRS Dur : 162 ms QT Int : 358 ms P-R-T Axes : 000 -27 233 degrees QTc Int : 550 ms POOR DATA QUALITY, INTERPRETATION MAY BE ADVERSELY AFFECTED UNDETERMINED RHYTHM NON-SPECIFIC INTRA-VENTRICULAR CONDUCTION BLOCK INFERIOR INFARCT , AGE UNDETERMINED ABNORMAL ECG WHEN COMPARED WITH ECG OF 21-MAY-2016 12:55, PREVIOUS ECG HAS UNDETERMINED RHYTHM, NEEDS REVIEW Confirmed by KB KERN MD ([id number]) on 05/22/2016 5:31:04 PM Referred By: Confirmed By:KB KERN MD
[2016-05-22] MEDS ORDERED: diazePAM CARPU-JECT 10 MG/2 ML DISP.SYRIN IVPUSH ONE (17:41)
--- NOTE | 2016-05-22 17:42 | CONSULT ---
Consult Consult Specialty:: infectious diseases Reason for Consultation:: infection ofthe finger rt - History of Present Illness Chief Complaint: swelling of the finger History of Present Illness: 65 yr old man with HTN, gout, CKD stage 2, afib, hx of triple bypass, and ETOH abuse BIBEMS from assisted living facility after being found immobile in his bed by a friend. For past 2 two weeks he has progressively developed difficulty getting out of bed and generalized weakness. With effort, last week he was able to get to the bathroom but in the last 4 days he has been unable to move due to joint pain and generalized weakness. He has been laying in bed without food, water or medications. He feels that symptoms first started 4 months ago when he stopped drinking alcohol and gradually he has become weaker and weaker. Notes weight loss from 198 to 167 due to poor appetite in past 4 months. Denies loss of consciousness, fall, head trauma, slurred speech, hemiparalysis, loss of muscle tone, back injury, chest pain, SOB. patient is a very poor historian,history taken mainly from the chart also patient is a heavy drinker neurology evalauting the patient patient has history of gout i was called in because patient has swelling of his right forefinger when patient came to the emergency room and his finger was drained and it drained blood and pus according to the patient and the swelling of the finger went down Now he mentions that the swelling has again increased no drainage noted from the wound patient mentions that the swelling has been there for many weeks now - History Source History Provided By: Patient, Medical Record Limitations to Obtaining History: Poor Historian - Past Medical History Cardio/Vascular: Yes: AFIB, CAD (s/p 3V CABG at [place] 3 years ago), HTN Renal/: Yes: Renal Inusuff Rheumatology: Yes: Gout - Past Surgical History Past Surgical History: Yes: CABG - Alcohol/Substance Use Hx Alcohol Use: Yes (last drink 4-5 months ago) - Smoking History Smoking history: Former smoker Have you smoked in the past 12 months: No Home Medications - Allergies Allergies/Adverse Reactions: Allergies Allergy/AdvReac Type Severity Reaction Status Date / Time No Known Allergies Allergy Verified 05/21/16 12:52 - Home Medications Home Medications: Ambulatory Orders Colchicine [Colcrys -] 0.6 mg PO DAILY 05/21/16 Losartan/Hydrochlorothiazide [Losartan-Hctz 50-12.5 mg Tab] 1 each PO DAILY 05/06 Metoprolol Succinate [Toprol Xl -] 100 mg PO BID 05/21/16 Nifedipine [Procardia Xl] 30 mg PO DAILY 05/21/16 Omeprazole 20 mg PO DAILY 05/21/16 Rosuvastatin [Crestor -] 10 mg PO DAILY 05/21/16 Tamsulosin HCl [Flomax] 0.4 mg PO DAILY 05/21/16 Ascorbate Calcium [Vitamin C] 1,000 mg PO DAILY 05/22/16 Aspirin [ASA -] 81 mg PO DAILY 05/22/16 Family Disease History - Family Disease History Family Disease History: Heart Disease: Father Review of Systems - Review of Systems Constitutional: reports: Lethargy, Weakness, Other Eyes: reports: No Symptoms HENT: reports: No Symptoms Neck: reports: No Symptoms Cardiovascular: reports: No Symptoms Respiratory: reports: No Symptoms Gastrointestinal: reports: No Symptoms Genitourinary: reports: No Symptoms Musculoskeletal: reports: Muscle Weakness Integumentary: reports: Erythema, Wound Neurological: reports: No Symptoms Endocrine: reports: No Symptoms Hematology/Lymphatic: reports: No Symptoms Psychiatric: reports: No Symptoms Physical Exam Vital Signs: Vital Signs Temperature 98.6 F 05/22/16 14:35 Pulse Rate 115 H 05/22/16 14:35 Respiratory Rate 20 05/22/16 14:35 Blood Pressure 133/65 05/22/16 14:35 O2 Sat by Pulse Oximetry (%) 99 05/22/16 09:00 Constitutional: Yes: No Distress, Calm Eyes: Yes: Conjunctiva Clear HENT: Yes: Atraumatic, Normocephalic Neck: Yes: Supple, Trachea Midline Cardiovascular: Yes: Regular Rate and Rhythm, Pulse Irregular Respiratory: Yes: Regular, CTA Bilaterally Gastrointestinal: Yes: Normal Bowel Sounds, Soft Musculoskeletal: Yes: Other Extremities: Yes: Erythema, Other (abscess of the right index finger) Integumentary: Yes: Erythema, Other (swelling of the index finger rt) Neurological: Yes: Alert, Oriented Psychiatric: Yes: Alert, Oriented Labs: CBC, BMP 05/22/16 06:00 05/22/16 06:00 Imaging - Results Chest X-ray: Report Reviewed, Image Reviewed X-ray: Report Reviewed, Image Reviewed Cat Scan: Report Reviewed, Image Reviewed Assessment/Plan #Sepsis (tachycardia, wbc of 22) UTI(u/a with leuk +, elevated WBC) and Abscess in right index finger #Dehydration/generalized weakness - #Gout #Afib/Aflutter #HTN #BPH #CAD #Etoh abuse after looking at the history and looking at the patient his patient has abscess of the finger which has been drained plan will start patient on unasyn and clinda watch for the swelling await for cx report
--- NOTE | 2016-05-22 18:34 | PN ---
Teaching Attending Note Name of Resident: Michael Ferguson ATTENDING PHYSICIAN STATEMENT I saw and evaluated the patient. I reviewed the resident's note and discussed the case with the resident. I agree with the resident's findings and plan as documented. SUBJECTIVE: Patient is comfortabel but c/o being weak and unable to ambulate for the past one month but got worse. He is an alcohol abuser that has not touched alcohol over 6 months as per patient. OBJECTIVE: Vital Signs Temperature 98.9 F 05/22/16 18:08 Pulse Rate 109 H 05/22/16 18:08 Respiratory Rate 18 05/22/16 18:08 Blood Pressure 140/65 05/22/16 18:08 O2 Sat by Pulse Oximetry (%) 99 05/22/16 09:00 EXt: Unable to lift his lower extremities CBCD WBC 14.5 K/mm3 (4.0-10.0) H 05/22/16 06:00 RBC 3.32 M/mm3 (4.00-5.60) L 05/22/16 06:00 Hgb 10.6 GM/dL (11.7-16.9) L D 05/22/16 06:00 Hct 32.4 % (35.4-49) L D 05/22/16 06:00 MCV 97.7 fl (80-96) H 05/22/16 06:00 MCHC 32.8 g/dl (32.0-35.9) 05/22/16 06:00 RDW 17.0 % (11.9-15.9) H 05/22/16 06:00 Plt Count 389 K/MM3 (134-434) D 05/22/16 06:00 MPV 8.4 fl (7.5-11.1) 05/22/16 06:00 CMP Sodium 138 mmol/L (136-145) 05/22/16 06:00 Potassium 4.4 mmol/L (3.5-5.1) 05/22/16 06:00 Chloride 103 mmol/L (98-107) 05/22/16 06:00 Carbon Dioxide 25 mmol/L (21-32) 05/22/16 06:00 Anion Gap 10 (8-16) 05/22/16 06:00 BUN 39 mg/dL (7-18) H 05/22/16 06:00 Creatinine 1.5 mg/dL (0.7-1.3) H 05/22/16 06:00 Creat Clearance w eGFR 46.97 (>60) 05/22/16 06:00 Random Glucose 87 mg/dL (74-106) D 05/22/16 06:00 Calcium 9.7 mg/dL (8.5-10.1) 05/22/16 06:00 Total Bilirubin 0.6 mg/dL (0.2-1.0) D 05/22/16 06:00 AST 35 U/L (15-37) 05/22/16 06:00 ALT 38 U/L (12-78) D 05/22/16 06:00 Alkaline Phosphatase 115 U/L (45-117) 05/22/16 06:00 Total Protein 5.7 g/dl (6.4-8.2) L 05/22/16 06:00 Albumin 2.0 g/dl (3.4-5.0) L 05/22/16 06:00 CARDIAC ENZYMES Creatine Kinase 41 IU/L (39-308) 05/21/16 19:17 Troponin I < 0.02 ng/ml (0.00-0.05) 05/21/16 19:17 Current Medications Generic Name Dose Route Start Last Admin Trade Name Freq PRN Reason Stop Dose Admin Acetaminophen 650 mg 05/22/16 12:23 05/22/16 12:46 Tylenol - PO 650 mg Q6H PRN Administration FEVER OR PAIN Aspirin 81 mg 05/22/16 10:00 05/22/16 10:40 Asa - PO 81 mg DAILY ESME Administration Clindamycin HCl 300 mg 05/22/16 18:00 Cleocin - PO Q6HPO ESME Cyanocobalamin 1,000 mcg 05/22/16 16:30 05/22/16 16:58 Vitamin B12 Injection - IM 1,000 mcg DAILY ESME Administration Diazepam 5 mg 05/22/16 17:41 Valium Injection - IVPUSH 05/22/16 17:42 ONCE ONE Diltiazem HCl 120 mg 05/22/16 10:00 05/22/16 09:15 Cardizem Cd - PO 120 mg DAILY ESME Administration Folic Acid 1 mg 05/22/16 10:00 05/22/16 09:14 Folic Acid - PO 1 mg DAILY ESME Administration Heparin Sodium (Porcine) 5,000 unit 05/21/16 22:00 05/22/16 14:54 Heparin - SQ 5,000 unit TID ESME Administration Sodium Chloride 1,000 mls @ 125 mls/hr 05/21/16 18:15 05/22/16 14:30 Normal Saline - IV 125 mls/hr ASDIR ESME Administration Folic Acid 1 mg/ Thiamine HCl 1,000 mls @ 125 mls/hr 05/22/16 17:08 100 mg/ Multivitamins/Minerals IVPB 05/23/16 01:07 10 ml/ Sodium Chloride ONCE ONE Ampicillin Sodium/Sulbactam 100 mls @ 200 mls/hr 05/22/16 18:00 Sodium 3 gm/ Sodium Chloride IVPB Q8H-IV ESME Metoprolol Succinate 100 mg 05/22/16 10:00 05/22/16 09:14 Toprol Xl - PO 100 mg BID ESME Administration Multivitamins/Minerals 1 each 05/22/16 10:00 05/22/16 09:15 Theragran-M PO 1 each DAILY ESME Administration Pantoprazole Sodium 20 mg 05/22/16 10:00 05/22/16 09:14 Protonix - PO 20 mg DAILY ESME Administration Prednisone 60 mg 05/22/16 10:00 05/22/16 09:15 Deltasone - PO 60 mg DAILY ESME Administration Rosuvastatin Calcium 10 mg 05/22/16 10:00 05/22/16 09:14 Crestor - PO 10 mg DAILY ESME Administration Tamsulosin HCl 0.4 mg 05/22/16 10:00 05/22/16 09:15 Flomax - PO 0.4 mg DAILY ESME Administration Home Medications Medication Instructions Recorded Colchicine [Colcrys -] 0.6 mg PO DAILY 05/21/16 Losartan/Hydrochlorothiazide 1 each PO DAILY 05/21/16 [Losartan-Hctz 50-12.5 mg Tab] Metoprolol Succinate [Toprol Xl -] 100 mg PO BID 05/21/16 Nifedipine [Procardia Xl] 30 mg PO DAILY 05/21/16 Omeprazole 20 mg PO DAILY 05/21/16 Rosuvastatin [Crestor -] 10 mg PO DAILY 05/21/16 Tamsulosin HCl [Flomax] 0.4 mg PO DAILY 05/21/16 Ascorbate Calcium [Vitamin C] 1,000 mg PO DAILY 05/22/16 Aspirin [ASA -] 81 mg PO DAILY 05/22/16 Urine Test Results Urine Color Dkyellow 05/21/16 16:11 Urine Appearance Slcloudy 05/21/16 16:11 Urine pH 6.0 (5.0-8.0) 05/21/16 16:11 Ur Specific [place] 1.020 (1.001-1.035) 05/21/16 16:11 Urine Protein 3+ (NEGATIVE) H D 05/21/16 16:11 Urine Glucose (UA) 1+ (NEGATIVE) H 05/21/16 16:11 Urine Ketones Negative (NEGATIVE) 05/21/16 16:11 Urine Blood 1+ (NEGATIVE) H 05/21/16 16:11 Urine Nitrite Negative (NEGATIVE) 05/21/16 16:11 Urine Bilirubin Negative (NEGATIVE) 05/21/16 16:11 Ur Leukocyte Esterase Trace (NEGATIVE) H 05/21/16 16:11 Urine RBC 30 /hpf (0-3) 05/21/16 16:11 Urine WBC 106 /hpf (3-5) 05/21/16 16:11 Ur Epithelial Cells Rare /hpf (FEW) 05/21/16 16:11 Urine Mucus Rare 05/21/16 16:11 ASSESSMENT AND PLAN: 65 yr old man with HTN, gout, CKD stage 2, afib, hx of triple bypass, and ETOH abuse BIBEMS from assisted living facility after being found immobile in his bed by a friend. For past four months he has progressively developed difficulties walking to the point that he couldn't get out of bed for the past one months # Acute paraplegia possible due to vitamin B12 deficiency/folic acid deficinecy / phos , Physical therapy consult, B12 level, folate level. Neuro consult 's group, MRI L spine w/wo contrast to rule out mass # acute gout attack with hx of Gout started on Prednisone, Hold Colchicine, Allopurinol for now # Acute sepsis secondary to right 2nd finger abscess s/p I&D done in ER - follow up culture;on Unasyn and Cleocin as per ID # UTI on Unasyn IV, IVF, (history of E. faecalis, Pseudomonas UTIs) # Acute Dehydration on IV fluid # Atrial flutter onToprol XL, Cardizem CD for rate control; not on anticoagulation since high risk for fall and noncompliance #CAD, history of CABG on aspirin, Toprol XL, Crestor #Hypertension on Toprol XL, Cardizem CD #Hyperlipidemia on Crestor # BPH on Flomax continue # History of alcohol abuse ;states he has been sober x 6 months ; Thiamine, folic acid, multivitamin # Stage 3 CKD Creatinine stable As per neurology need: spinal fluid interventional radiology CSF for protein, opening pressure, cytology, glucose, protein to rule out CIDP - DVT prophylaxis with lovenox. HOld Lovenox if going for IR procedure
[2016-05-22] MEDS ORDERED: PT OWN MED DRAWER 7, Y5N ONE (18:45)
[2016-05-22] MEDS: CLINDAMYCIN HCL 150 MG CAPSULE (FP) PO SCH ×2 (18:48→22:59)
[2016-05-22] MEDS: PIPERACILLIN/TAZOB 2.25 GM 50 ML IVPB SCH (18:54)
[2016-05-22] MEDS ORDERED: LORAZEPAM CARPU-JECT 2 MG/ML DISP.SYRIN IVPUSH ONE (19:00)
[2016-05-22] MEDS: AMPICILLIN NA/SULBACTAM NA 3 GM in SODIUM CHLORIDE 100 ML IVPB SCH (19:20)
[2016-05-23] MEDS: AMPICILLIN NA/SULBACTAM NA 3 GM in SODIUM CHLORIDE 100 ML IVPB SCH ×3 (02:47→17:05)
[2016-05-23] MEDS: CLINDAMYCIN HCL 150 MG CAPSULE (FP) PO SCH ×3 (05:07→17:05)
[2016-05-23] MEDS: HEPARIN NA (PORCINE) 5,000 UNITS/ML 1ML VIAL SQ SCH ×3 (05:07→20:59)
[2016-05-23] MEDS: SODIUM CHLORIDE 1,000 ML IV SCH (05:11)
--- NOTE | 2016-05-23 09:25 | PN ---
Progress Note, Physician Chief Complaint: alert and oriented Neuro input reviewed History of Present Illness: TELE: Well controlled Aflutter - Current Medication List Current Medications: Active Medications Acetaminophen (Tylenol -) 650 mg PO Q6H PRN PRN Reason: FEVER OR PAIN Last Admin: 05/22/16 12:46 Dose: 650 mg Clindamycin HCl (Cleocin -) 300 mg PO Q6HPO [facility] Last Admin: 05/23/16 05:07 Dose: 300 mg Cyanocobalamin (Vitamin B12 Injection -) 1,000 mcg IM DAILY [facility] Last Admin: 05/22/16 16:58 Dose: 1,000 mcg Diltiazem HCl (Cardizem Cd -) 120 mg PO DAILY [facility] Last Admin: 05/22/16 09:15 Dose: 120 mg Folic Acid (Folic Acid -) 1 mg PO DAILY [facility] Last Admin: 05/22/16 09:14 Dose: 1 mg Heparin Sodium (Porcine) (Heparin -) 5,000 unit SQ TID [facility] Last Admin: 05/23/16 05:07 Dose: Not Given Sodium Chloride (Normal Saline -) 1,000 mls @ 125 mls/hr IV ASDIR [facility] Last Admin: 05/23/16 05:11 Dose: 125 mls/hr Ampicillin Sodium/Sulbactam (Sodium 3 gm/ Sodium Chloride) 100 mls @ 200 mls/ hr IVPB Q8H-IV [facility] Last Admin: 05/23/16 02:47 Dose: 200 mls/hr Lorazepam (Ativan Injection -) 2 mg IVPUSH ONCE ONE Stop: 05/22/16 19:01 Metoprolol Succinate (Toprol Xl -) 100 mg PO BID [facility] Last Admin: 05/22/16 21:16 Dose: 100 mg Multivitamins/Minerals (Theragran-M) 1 each PO DAILY [facility] Last Admin: 05/22/16 09:15 Dose: 1 each Pantoprazole Sodium (Protonix -) 20 mg PO DAILY [facility] Last Admin: 05/22/16 09:14 Dose: 20 mg Prednisone (Deltasone -) 60 mg PO DAILY [facility] Last Admin: 05/22/16 09:15 Dose: 60 mg Rosuvastatin Calcium (Crestor -) 10 mg PO DAILY [facility] Last Admin: 05/22/16 09:14 Dose: 10 mg Tamsulosin HCl (Flomax -) 0.4 mg PO DAILY [facility] Last Admin: 05/22/16 09:15 Dose: 0.4 mg - Objective Vital Signs: Vital Signs Temperature 97.7 F 05/23/16 06:00 Pulse Rate 76 05/23/16 06:00 Respiratory Rate 18 05/23/16 06:00 Blood Pressure 103/69 05/23/16 06:00 O2 Sat by Pulse Oximetry (%) 99 05/22/16 21:00 Constitutional: Yes: No Distress Eyes: Yes: Conjunctiva Clear Cardiovascular: Yes: Pulse Irregular Respiratory: Yes: CTA Bilaterally Gastrointestinal: Yes: Soft Edema: No Neurological: Yes: Alert Labs: CBC, BMP 05/22/16 06:00 INR, PTT INR 1.33 (0.82-1.09) H D 05/21/16 13:16 - ....Imaging EKG: Image Reviewed Assessment/Plan CAD s/p CABG 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 Suspect component of non-adherence with outpatient meds. ASA now being held for LP to r/o CIDP.
[2016-05-23] MEDS: predniSONE 20 MG TABLET (UD) PO SCH (09:40)
[2016-05-23] MEDS: MULTIVITAMINS THER W-MINERALS COMBO TABLET (FP) PO SCH (09:40)
[2016-05-23] MEDS: CYANOCOBALAMIN (VITAMIN B-12) 1000 MCG/1 ML VIAL IM SCH (09:41)
[2016-05-23] MEDS: ROSUVASTATIN CA 10 MG TABLET (FP) PO SCH (09:41)
[2016-05-23] MEDS: FOLIC ACID 1 MG TABLET (FP) PO SCH (09:41)
[2016-05-23] MEDS: PANTOPRAZOLE 20 MG TABLET (FP) PO SCH (09:41)
[2016-05-23] MEDS: TAMSULOSIN HCL 0.4 MG CAP.ER.24H (FP) PO SCH (09:41)
--- NOTE | 2016-05-23 10:46 | PN ---
Teaching Attending Note Name of Resident: Michael Ferguson ATTENDING PHYSICIAN STATEMENT I saw and evaluated the patient. I reviewed the resident's note and discussed the case with the resident. I agree with the resident's findings and plan as documented. SUBJECTIVE: Patient is c/o unable to move his lower extremities. OBJECTIVE: Vital Signs Temperature 97.7 F 05/23/16 06:00 Pulse Rate 115 H 05/23/16 10:18 Respiratory Rate 14 05/23/16 10:18 Blood Pressure 131/92 05/23/16 10:18 O2 Sat by Pulse Oximetry (%) 96 05/23/16 10:18 GENERAL: The patient is awake, alert, and fully oriented, in no acute distress. EYES: PERRL, extraocular movements intact ENT: poor oral hygiene with missing dentition. oropharynx clear without exudates , moist mucous membranes. NECK: Trachea midline, full range of motion, supple. no carotid bruits. no LAD, no thyromegaly. LUNGS: Breath sounds equal, clear to auscultation bilaterally, no wheezes, no crackles, no accessory muscle use. HEART: tachycardic, S1, S2 without murmur, rub or gallop. ABDOMEN: Soft, nontender, nondistended, normoactive bowel sounds EXTREMITIES: 2+ pulses, warm, well-perfused. No peripheral edema. right index finger with erythematous tip swelling with scant drianage on dorsum and lateral side, on tongue depressor splint. No calf tenderness. PSYCH: Normal mood, normal affect , AAOx3 NEURO: cn2-12 grossly intact , CBCD WBC 14.5 K/mm3 (4.0-10.0) H 05/22/16 06:00 RBC 3.32 M/mm3 (4.00-5.60) L 05/22/16 06:00 Hgb 10.6 GM/dL (11.7-16.9) L D 05/22/16 06:00 Hct 32.4 % (35.4-49) L D 05/22/16 06:00 MCV 97.7 fl (80-96) H 05/22/16 06:00 MCHC 32.8 g/dl (32.0-35.9) 05/22/16 06:00 RDW 17.0 % (11.9-15.9) H 05/22/16 06:00 Plt Count 389 K/MM3 (134-434) D 05/22/16 06:00 MPV 8.4 fl (7.5-11.1) 05/22/16 06:00 CMP Sodium 138 mmol/L (136-145) 05/22/16 06:00 Potassium 4.4 mmol/L (3.5-5.1) 05/22/16 06:00 Chloride 103 mmol/L (98-107) 05/22/16 06:00 Carbon Dioxide 25 mmol/L (21-32) 05/22/16 06:00 Anion Gap 10 (8-16) 05/22/16 06:00 BUN 39 mg/dL (7-18) H 05/22/16 06:00 Creatinine 1.5 mg/dL (0.7-1.3) H 05/22/16 06:00 Creat Clearance w eGFR 46.97 (>60) 05/22/16 06:00 Random Glucose 87 mg/dL (74-106) D 05/22/16 06:00 Calcium 9.7 mg/dL (8.5-10.1) 05/22/16 06:00 Total Bilirubin 0.6 mg/dL (0.2-1.0) D 05/22/16 06:00 AST 35 U/L (15-37) 05/22/16 06:00 ALT 38 U/L (12-78) D 05/22/16 06:00 Alkaline Phosphatase 115 U/L (45-117) 05/22/16 06:00 Total Protein 5.7 g/dl (6.4-8.2) L 05/22/16 06:00 Albumin 2.0 g/dl (3.4-5.0) L 05/22/16 06:00 CARDIAC ENZYMES Creatine Kinase 41 IU/L (39-308) 05/21/16 19:17 Troponin I < 0.02 ng/ml (0.00-0.05) 05/21/16 19:17 Current Medications Generic Name Dose Route Start Last Admin Trade Name Freq PRN Reason Stop Dose Admin Acetaminophen 650 mg 05/22/16 12:23 05/22/16 12:46 Tylenol - PO 650 mg Q6H PRN Administration FEVER OR PAIN Clindamycin HCl 300 mg 05/22/16 18:00 05/23/16 05:07 Cleocin - PO 300 mg Q6HPO ESME Administration Cyanocobalamin 1,000 mcg 05/22/16 16:30 05/23/16 09:41 Vitamin B12 Injection - IM 1,000 mcg DAILY [facility]ME Administration Diltiazem HCl 120 mg 05/22/16 10:00 05/23/16 09:41 Cardizem Cd - PO 120 mg DAILY [facility]ME Administration Folic Acid 1 mg 05/22/16 10:00 05/23/16 09:41 Folic Acid - PO 1 mg DAILY [facility]ME Administration Heparin Sodium (Porcine) 5,000 unit 05/21/16 22:00 05/23/16 05:07 Heparin - SQ Not Given TID ESME Sodium Chloride 1,000 mls @ 125 mls/hr 05/21/16 18:15 05/23/16 05:11 Normal Saline - IV 125 mls/hr ASDIR ESME Administration Ampicillin Sodium/Sulbactam 100 mls @ 200 mls/hr 05/22/16 18:00 05/23/16 09:42 Sodium 3 gm/ Sodium Chloride IVPB 200 mls/hr Q8H-IV [facility]ME Administration Lorazepam 2 mg 05/22/16 19:00 Ativan Injection - IVPUSH 05/22/16 19:01 ONCE ONE Metoprolol Succinate 100 mg 05/22/16 10:00 05/22/16 21:16 Toprol Xl - PO 100 mg BID ESME Administration Multivitamins/Minerals 1 each 05/22/16 10:00 05/23/16 09:40 Theragran-M PO 1 each DAILY [facility]ME Administration Pantoprazole Sodium 20 mg 05/22/16 10:00 05/23/16 09:41 Protonix - PO 20 mg DAILY [facility]ME Administration Prednisone 60 mg 05/22/16 10:00 05/23/16 09:40 Deltasone - PO 60 mg DAILY [facility]ME Administration Rosuvastatin Calcium 10 mg 05/22/16 10:00 05/23/16 09:41 Crestor - PO 10 mg DAILY [facility]ME Administration Tamsulosin HCl 0.4 mg 05/22/16 10:00 05/23/16 09:41 Flomax - PO 0.4 mg DAILY ESME Administration Home Medications Medication Instructions Recorded Colchicine [Colcrys -] 0.6 mg PO DAILY 05/21/16 Losartan/Hydrochlorothiazide 1 each PO DAILY 05/21/16 [Losartan-Hctz 50-12.5 mg Tab] Metoprolol Succinate [Toprol Xl -] 100 mg PO BID 05/21/16 Nifedipine [Procardia Xl] 30 mg PO DAILY 05/21/16 Omeprazole 20 mg PO DAILY 05/21/16 Rosuvastatin [Crestor -] 10 mg PO DAILY 05/21/16 Tamsulosin HCl [Flomax] 0.4 mg PO DAILY 05/21/16 Ascorbate Calcium [Vitamin C] 1,000 mg PO DAILY 05/22/16 Aspirin [ASA -] 81 mg PO DAILY 05/22/16 Microbiology Laboratory Tests 05/21/16 05/21/16 05/21/16 13:16 13:16 15:45 WBC 20.0 H D Plt Count Neutrophils % Lymphocytes % ESR BUN 39 H Creatinine 1.7 H Random Glucose 110 H D Hemoglobin A1c % Lactic Acid Uric Acid 10.0 H D Calcium 11.0 H D Phosphorus Magnesium Total Bilirubin 1.3 H D AST 40 H D ALT 62 D Alkaline Phosphatase 140 H D Ammonia Troponin I Total Protein 7.1 Albumin 2.3 L D Lipase 81 Vitamin B12 Folate Folate Hemolysate TSH 05/21/16 05/22/16 05/22/16 19:17 06:00 06:00 WBC 14.5 H Plt Count 389 D Neutrophils % 87.9 H Lymphocytes % 6.0 L D ESR BUN 39 H Creatinine 1.5 H Random Glucose 87 D Hemoglobin A1c % Lactic Acid Uric Acid Calcium Phosphorus Magnesium 2.2 D Total Bilirubin 0.6 D AST 35 ALT 38 D Alkaline Phosphatase 115 Ammonia Troponin I < 0.02 Total Protein 5.7 L Albumin 2.0 L Lipase Vitamin B12 Folate Folate Hemolysate TSH 1.41 D 05/22/16 05/22/16 05/22/16 06:00 06:00 07:13 WBC Plt Count Neutrophils % Lymphocytes % ESR > 130 H BUN Creatinine Random Glucose Hemoglobin A1c % 5.8 Lactic Acid Uric Acid Calcium Phosphorus Magnesium Total Bilirubin AST ALT Alkaline Phosphatase Ammonia Troponin I Total Protein Albumin Lipase Vitamin B12 506 D Folate Folate Hemolysate TSH 05/22/16 05/22/16 05/23/16 08:30 08:30 05:35 WBC Plt Count Neutrophils % Lymphocytes % ESR BUN Creatinine Random Glucose Hemoglobin A1c % Lactic Acid 1.336 Uric Acid Calcium Phosphorus Magnesium Total Bilirubin AST ALT Alkaline Phosphatase Ammonia 13.46 Troponin I Total Protein Albumin Lipase Vitamin B12 Folate Pending Folate Hemolysate Pending TSH 05/23/16 05:35 WBC Plt Count Neutrophils % Lymphocytes % ESR BUN Creatinine Random Glucose Hemoglobin A1c % Lactic Acid Uric Acid Calcium Phosphorus 2.9 Magnesium Total Bilirubin AST ALT Alkaline Phosphatase Ammonia Troponin I Total Protein Albumin Lipase Vitamin B12 Folate Folate Hemolysate TSH Microbiology 05/21/16 17:00 Finger - Right Index Finger Gram Stain - Final 05/21/16 17:00 Finger - Right Index Finger Wound Culture - Preliminary Group D Strep Or Entero Coccus Staphylococcus Coagulase Neg Pending Organism 05/22/16 08:30 Blood - Peripheral Venous Blood Culture - Preliminary NO GROWTH OBTAINED AFTER 24 HOURS, INCUBATION TO CONTINUE FOR 4 DAYS. 05/22/16 08:25 Blood - Peripheral Venous Blood Culture - Preliminary NO GROWTH OBTAINED AFTER 24 HOURS, INCUBATION TO CONTINUE FOR 4 DAYS. ASSESSMENT AND PLAN: 65 yr old man with HTN, gout, CKD stage 2, afib, hx of triple bypass, and ETOH abuse BIBEMS from assisted living facility after being found immobile in his bed by a friend. For past four months he has progressively developed difficulties walking to the point that he couldn't get out of bed for the past one months # Acute sepsis secondary to right 2nd finger abscess s/p I&D done in ER on IV Unasyn and po cleocin, ESR elevated and Hand X ray can't r/o Osteomyelitis Id on the case . # Acute Paraplegia , vitamin [id number] is normal /folic acid level is pending/ phos. normal, potassium is normal , Physical therapy consult. Patient went for LP by IR and MRI of spine with and withour contrast as per neuro order and recommendation. MRI L spine w/wo contrast to rule out mass # acute gout attack with hx of Gout started on Prednisone, Hold Colchicine, Allopurinol for now # UTI on Unasyn IV, IVF, (history of E. faecalis, Pseudomonas UTIs) # Acute Dehydration on IV fluid # Acute on Chronic renal failure On IVF cr.1.7--1.5 today # Malnourished with low Albumin level is 2.0 Nutrition consult # Atrial flutter onToprol XL, Cardizem CD for rate control; not on anticoagulation since high risk for fall and noncompliance #CAD, history of CABG on aspirin, Toprol XL, Crestor #Hypertension on Toprol XL, Cardizem CD #Hyperlipidemia on Crestor # BPH on Flomax continue # History of alcohol abuse ;states he has been sober x 6 months ; Thiamine, folic acid, multivitamin As per neurology need: spinal fluid interventional radiology CSF for protein, opening pressure, cytology, glucose, protein to rule out CIDP - DVT prophylaxis with lovenox. HOld Lovenox if going for IR procedure
[2016-05-23] MEDS: METOPROLOL SUCCINATE 100 MG TAB.SR.24H (FP) PO SCH ×2 (12:22→21:10)
--- NOTE | 2016-05-23 12:41 | PN ---
Progress Note, Physician History of Present Illness: 65 yr old man with HTN, gout, CKD stage 2, AFib., hx of triple bypass, and ETOH abuse BIBEMS from assisted living facility after being found immobile in his bed by a friend. For past four months he has progressively developed difficulty walking, in the last two weeks getting out of bed and generalized weakness. With effort, last week he was able to get to the bathroom but in the last 4 days he has been unable to move due to joint pain and generalized weakness. He has been laying in bed without food, water or medications. He feels that symptoms first started 4 months ago when he stopped drinking alcohol and gradually he has become weaker and weaker. Denies loss of consciousness, fall, head trauma, slurred speech, hemiparalysis, loss of muscle tone, back injury, chest pain, SOB. - Current Medication List Current Medications: Active Medications Acetaminophen (Tylenol -) 650 mg PO Q6H PRN PRN Reason: FEVER OR PAIN Last Admin: 05/22/16 12:46 Dose: 650 mg Clindamycin HCl (Cleocin -) 300 mg PO Q6HPO [facility] Last Admin: 05/23/16 12:22 Dose: 300 mg Cyanocobalamin (Vitamin B12 Injection -) 1,000 mcg IM DAILY [facility] Last Admin: 05/23/16 09:41 Dose: 1,000 mcg Diltiazem HCl (Cardizem Cd -) 120 mg PO DAILY [facility] Last Admin: 05/23/16 09:41 Dose: 120 mg Folic Acid (Folic Acid -) 1 mg PO DAILY [facility] Last Admin: 05/23/16 09:41 Dose: 1 mg Heparin Sodium (Porcine) (Heparin -) 5,000 unit SQ TID [facility] Last Admin: 05/23/16 05:07 Dose: Not Given Sodium Chloride (Normal Saline -) 1,000 mls @ 125 mls/hr IV ASDIR [facility] Last Admin: 05/23/16 05:11 Dose: 125 mls/hr Ampicillin Sodium/Sulbactam (Sodium 3 gm/ Sodium Chloride) 100 mls @ 200 mls/ hr IVPB Q8H-IV [facility] Last Admin: 05/23/16 09:42 Dose: 200 mls/hr Lorazepam (Ativan Injection -) 2 mg IVPUSH ONCE ONE Stop: 05/22/16 19:01 Metoprolol Succinate (Toprol Xl -) 100 mg PO BID [facility] Last Admin: 05/23/16 12:22 Dose: 100 mg Multivitamins/Minerals (Theragran-M) 1 each PO DAILY [facility] Last Admin: 05/23/16 09:40 Dose: 1 each Pantoprazole Sodium (Protonix -) 20 mg PO DAILY [facility] Last Admin: 05/23/16 09:41 Dose: 20 mg Prednisone (Deltasone -) 60 mg PO DAILY [facility] Last Admin: 05/23/16 09:40 Dose: 60 mg Rosuvastatin Calcium (Crestor -) 10 mg PO DAILY [facility] Last Admin: 05/23/16 09:41 Dose: 10 mg Tamsulosin HCl (Flomax -) 0.4 mg PO DAILY [facility] Last Admin: 05/23/16 09:41 Dose: 0.4 mg - Objective Vital Signs: Vital Signs Temperature 98.2 F 05/23/16 10:00 Pulse Rate 115 H 05/23/16 10:18 Respiratory Rate 14 05/23/16 10:18 Blood Pressure 131/92 05/23/16 10:18 O2 Sat by Pulse Oximetry (%) 96 05/23/16 10:18 Constitutional: Yes: No Distress, Calm Eyes: Yes: Conjunctiva Clear, EOM Intact, PERRL HENT: Yes: Atraumatic, Normocephalic Neck: Yes: Supple, Trachea Midline Cardiovascular: Yes: Regular Rate and Rhythm, S1, S2 Respiratory: Yes: Regular, CTA Bilaterally Gastrointestinal: Yes: Normal Bowel Sounds, Soft Genitourinary: Yes: WNL Breast(s): Yes: WNL Musculoskeletal: Yes: Muscle Weakness (paraplegia 2/5 lower extremities weakness - he can wiggle the toes and mild bending knees.) Edema: Yes Edema: LLE: 1+, RLE: 1+ Peripheral Pulses WNL: Yes Peripheral Pulses: Left Radial: 1+, Right Radial: 1+ Psychiatric: Yes: Alert, Oriented Labs: CBC, BMP 05/22/16 06:00 INR, PTT INR 1.33 (0.82-1.09) H D 05/21/16 13:16 - ....Imaging MRI: Pending Problem List - Problems (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 For past four months he has progressively developed difficulties walking to the point that he couldn't get out of bed in the last four days. He feels that symptoms first started 4 months ago when he stopped drinking alcohol and gradually he has become weaker and weaker. Denies loss of consciousness, fall, head trauma, slurred speech, hemiparalysis, loss of muscle tone, back injury, chest pain, SOB. At the examination he has right digit 2 red, swollen, both ankles are swollen and extreme pain with touch, movement. paraplegia LE Impression: paraplegia due to vitamin B12 deficiency, possible CIDP, acute gout attack. Plan: - start B12 im. daily, banana bag daily, check B12, folate level. - decadrone iv. 12mg. for gout acute - ESR >130 - ivfluids - MRI L spine w/wo contrast to rule out mass - spinal fluid interventional radiology CSF for protein, opening pressure, cytology, glucose, protein to rule out CIDP- paraplegia can be seen in very advanced B12 deficiency but one of the differential diagnosis is a neuropathy CIDP or a lumbar mass. - DVT prophylaxis with lovenox. - continues asa, statin, - PT/OT Thank you for this consult.
--- NOTE | 2016-05-23 17:29 | PN ---
Progress Note, Physician History of Present Illness: stable patient feels much better swelling of the finger much better also of note when examined him yesterday patient had minimal cellulitis of both lower ext - Current Medication List Current Medications: Active Medications Acetaminophen (Tylenol -) 650 mg PO Q6H PRN PRN Reason: FEVER OR PAIN Last Admin: 05/22/16 12:46 Dose: 650 mg Clindamycin HCl (Cleocin -) 300 mg PO Q6HPO [facility] Last Admin: 05/23/16 17:05 Dose: 300 mg Cyanocobalamin (Vitamin B12 Injection -) 1,000 mcg IM DAILY [facility] Last Admin: 05/23/16 09:41 Dose: 1,000 mcg Diltiazem HCl (Cardizem Cd -) 120 mg PO DAILY [facility] Last Admin: 05/23/16 09:41 Dose: 120 mg Folic Acid (Folic Acid -) 1 mg PO DAILY [facility] Last Admin: 05/23/16 09:41 Dose: 1 mg Heparin Sodium (Porcine) (Heparin -) 5,000 unit SQ TID [facility] Last Admin: 05/23/16 13:20 Dose: Not Given Sodium Chloride (Normal Saline -) 1,000 mls @ 125 mls/hr IV ASDIR [facility] Last Admin: 05/23/16 05:11 Dose: 125 mls/hr Ampicillin Sodium/Sulbactam (Sodium 3 gm/ Sodium Chloride) 100 mls @ 200 mls/ hr IVPB Q8H-IV [facility] Last Admin: 05/23/16 17:05 Dose: 200 mls/hr Lorazepam (Ativan Injection -) 2 mg IVPUSH ONCE ONE Stop: 05/22/16 19:01 Metoprolol Succinate (Toprol Xl -) 100 mg PO BID [facility] Last Admin: 05/23/16 12:22 Dose: 100 mg Multivitamins/Minerals (Theragran-M) 1 each PO DAILY [facility] Last Admin: 05/23/16 09:40 Dose: 1 each Pantoprazole Sodium (Protonix -) 20 mg PO DAILY [facility] Last Admin: 05/23/16 09:41 Dose: 20 mg Prednisone (Deltasone -) 60 mg PO DAILY [facility] Last Admin: 05/23/16 09:40 Dose: 60 mg Rosuvastatin Calcium (Crestor -) 10 mg PO DAILY [facility] Last Admin: 05/23/16 09:41 Dose: 10 mg Tamsulosin HCl (Flomax -) 0.4 mg PO DAILY [facility] Last Admin: 05/23/16 09:41 Dose: 0.4 mg - Objective Vital Signs: Vital Signs Temperature 98.3 F 05/23/16 14:00 Pulse Rate 81 05/23/16 14:00 Respiratory Rate 18 05/23/16 14:00 Blood Pressure 108/61 05/23/16 14:00 O2 Sat by Pulse Oximetry (%) 96 05/23/16 10:18 Constitutional: Yes: No Distress, Calm Cardiovascular: Yes: Regular Rate and Rhythm Respiratory: Yes: Regular, CTA Bilaterally Gastrointestinal: Yes: Normal Bowel Sounds, Soft Musculoskeletal: Yes: WNL Extremities: Yes: Other (cellulitis of the ext both improving cellulitis and erythema of the finger improving) Integumentary: Yes: Erythema, Other Wound/Incision: Yes: Clean/Dry, Open to air Neurological: Yes: Alert, Oriented Psychiatric: Yes: Alert Labs: CBC, BMP 05/22/16 06:00 INR, PTT INR 1.33 (0.82-1.09) H D 05/21/16 13:16 Assessment/Plan #Sepsis (tachycardia, wbc of 22) UTI(u/a with leuk +, elevated WBC) and Abscess in right index finger #Dehydration/generalized weakness - #Gout #Afib/Aflutter #HTN #BPH #CAD #Etoh abuse bilateral cellulitis of the legs after looking at the history and looking at the patient his patient has abscess of the finger which has been drained plan continue abx patient is improving
[2016-05-23] MEDS ORDERED: LORAZEPAM CARPU-JECT 2 MG/ML DISP.SYRIN ONE (17:55)
[2016-05-23] MEDS: ACETAMINOPHEN 325 MG TABLET (FP) PO PRN (21:10)
[2016-05-24] MEDS: CLINDAMYCIN HCL 150 MG CAPSULE (FP) PO SCH ×4 (01:46→17:06)
[2016-05-24] MEDS ORDERED: PT OWN MED DRAWER 7, Y5N ONE (02:14)
[2016-05-24] MEDS: AMPICILLIN NA/SULBACTAM NA 3 GM in SODIUM CHLORIDE 100 ML IVPB SCH ×3 (02:20→17:09)
[2016-05-24] MEDS: HEPARIN NA (PORCINE) 5,000 UNITS/ML 1ML VIAL SQ SCH ×3 (05:57→23:09)
[2016-05-24 07:28] LABS: BASOPHIL 0.2 % (0-2.0); MCH 31.4 pg (25.7-33.7); MEAN CELL VOLUME 98.1 fl (80-96); MEAN PLT VOLUME 8.8 fl (7.5-11.1); NEUTROPHILS 93.5 % (42.8-82.8); PLATELET COUNT 362 K/MM3 (134-434); RDW 16.9 % (11.9-15.9); WHITE BLOOD COUNT 14.4 K/mm3 (4.0-10.0)
[2016-05-24 07:47] LABS: ALBUMIN 1.9 g/dl (3.4-5.0); CALCIUM 9.1 mg/dL (8.5-10.1); CREATININE 1.6 mg/dL (0.7-1.3)
[2016-05-24 07:49] LABS: BILIRUBIN,TOTAL 0.3 mg/dL (0.2-1.0); TOT PROT 5.4 g/dl (6.4-8.2)
[2016-05-24 08:07] LABS: HEMATOCRIT 29.8 % (37.5-51.0)
--- NOTE | 2016-05-24 08:56 | PN ---
Progress Note, Physician - Current Medication List Current Medications: Active Medications Acetaminophen (Tylenol -) 650 mg PO Q6H PRN PRN Reason: FEVER OR PAIN Last Admin: 05/23/16 21:10 Dose: 650 mg Clindamycin HCl (Cleocin -) 300 mg PO Q6HPO [facility] Last Admin: 05/24/16 06:01 Dose: 300 mg Cyanocobalamin (Vitamin B12 Injection -) 1,000 mcg IM DAILY [facility] Last Admin: 05/23/16 09:41 Dose: 1,000 mcg Diltiazem HCl (Cardizem Cd -) 120 mg PO DAILY [facility] Last Admin: 05/23/16 09:41 Dose: 120 mg Folic Acid (Folic Acid -) 1 mg PO DAILY [facility] Last Admin: 05/23/16 09:41 Dose: 1 mg Heparin Sodium (Porcine) (Heparin -) 5,000 unit SQ TID [facility] Last Admin: 05/24/16 05:57 Dose: Not Given Sodium Chloride (Normal Saline -) 1,000 mls @ 125 mls/hr IV ASDIR [facility] Last Admin: 05/23/16 05:11 Dose: 125 mls/hr Ampicillin Sodium/Sulbactam (Sodium 3 gm/ Sodium Chloride) 100 mls @ 200 mls/ hr IVPB Q8H-IV [facility] Last Admin: 05/24/16 02:20 Dose: 200 mls/hr Metoprolol Succinate (Toprol Xl -) 100 mg PO BID [facility] Last Admin: 05/23/16 21:10 Dose: 100 mg Multivitamins/Minerals (Theragran-M) 1 each PO DAILY [facility] Last Admin: 05/23/16 09:40 Dose: 1 each Pantoprazole Sodium (Protonix -) 20 mg PO DAILY [facility] Last Admin: 05/23/16 09:41 Dose: 20 mg Prednisone (Deltasone -) 60 mg PO DAILY [facility] Last Admin: 05/23/16 09:40 Dose: 60 mg Rosuvastatin Calcium (Crestor -) 10 mg PO DAILY [facility] Last Admin: 05/23/16 09:41 Dose: 10 mg Tamsulosin HCl (Flomax -) 0.4 mg PO DAILY [facility] Last Admin: 05/23/16 09:41 Dose: 0.4 mg - Objective Vital Signs: Vital Signs Temperature 97.3 F L 05/24/16 06:00 Pulse Rate 65 05/24/16 06:00 Respiratory Rate 18 05/24/16 06:00 Blood Pressure 123/74 05/24/16 06:00 O2 Sat by Pulse Oximetry (%) 96 05/23/16 22:00 Eyes: Yes: WNL, Conjunctiva Clear, EOM Intact HENT: Yes: WNL, Atraumatic, Normocephalic Neck: Yes: WNL, Supple, Trachea Midline Cardiovascular: Yes: Pulse Irregular Respiratory: Yes: WNL, Regular, CTA Bilaterally Gastrointestinal: Yes: WNL, Normal Bowel Sounds Genitourinary: Yes: WNL Musculoskeletal: Yes: WNL Extremities: Yes: WNL Edema: No Integumentary: Yes: WNL Neurological: Yes: WNL, Alert, Oriented ...Motor Strength: WNL Psychiatric: Yes: WNL Labs: CBC, BMP 05/24/16 06:00 05/24/16 06:00 INR, PTT INR 1.33 (0.82-1.09) H D 05/21/16 13:16 Assessment/Plan CAD s/p CABG 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 Suspect component of non-adherence with outpatient meds. ASA now being held for LP to r/o CIDP.
--- NOTE | 2016-05-24 09:06 | PN ---
Physical Exam: SUBJECTIVE: Patient seen and examined Patient is feeling better, LEs are improving, was able to stand up on his feet with a walker yesterday. Right 2nd digit is improving, swelling is down and cellulitis is improving. OBJECTIVE: Vital Signs Temperature 98.4 F 05/24/16 14:00 Pulse Rate 87 05/24/16 14:00 Respiratory Rate 18 05/24/16 14:00 Blood Pressure 138/96 05/24/16 14:00 O2 Sat by Pulse Oximetry (%) 96 05/24/16 08:56 GENERAL: The patient is awake, alert, and fully oriented, in no acute distress. HEAD: Normal with no signs of trauma. EYES: PERRL, extraocular movements intact, sclera anicteric, conjunctiva clear. No ptosis. ENT: Ears normal, nares patent, oropharynx clear without exudates, moist mucous membranes. NECK: Trachea midline, full range of motion, supple. LUNGS: Breath sounds equal, clear to auscultation bilaterally, no wheezes, no crackles, no accessory muscle use. HEART: Regular rate and rhythm, S1, S2 without murmur, rub or gallop. ABDOMEN: Soft, nontender, nondistended, normoactive bowel sounds, no guarding, no rebound, no hepatosplenomegaly, no masses. EXTREMITIES: 2+ pulses, warm, well-perfused, no edema. Right 2nd digit is improving, no erythema and the swelling is down. NEUROLOGICAL: Cranial nerves II through XII grossly intact. Normal speech, gait not observed. PSYCH: Normal mood, normal affect. SKIN: Warm, dry, normal turgor, no rashes or lesions noted Laboratory Results - last 24 hr 05/23/16 05/24/16 05/24/16 05:35 06:00 06:00 WBC 14.4 H RBC 3.24 L Hgb 10.2 L Hct 29.8 L 31.8 L MCV 98.1 H MCHC 32.0 RDW 16.9 H Plt Count 362 MPV 8.8 Neutrophils % 93.5 H Lymphocytes % 3.3 L D Monocytes % 3.0 L Eosinophils % 0.0 D Basophils % 0.2 Sodium 139 Potassium 5.3 H D Chloride 106 Carbon Dioxide 21 Anion Gap 12 BUN 50 H D Creatinine 1.6 H Creat Clearance w eGFR 43.60 Random Glucose 122 H D Calcium 9.1 Total Bilirubin 0.3 D AST 79 H D ALT 60 D Alkaline Phosphatase 104 Total Protein 5.4 L Albumin 1.9 L Folate >2081 Folate Hemolysate >620.0 Active Medications Generic Name Dose Route Start Last Admin Trade Name Freq PRN Reason Stop Dose Admin Acetaminophen 650 mg 05/22/16 12:23 05/23/16 21:10 Tylenol - PO 650 mg Q6H PRN Administration FEVER OR PAIN Clindamycin HCl 300 mg 05/22/16 18:00 05/24/16 06:01 Cleocin - PO 300 mg Q6HPO [facility] Administration Cyanocobalamin 1,000 mcg 05/22/16 16:30 05/23/16 09:41 Vitamin B12 Injection - IM 1,000 mcg DAILY [facility] Administration Diltiazem HCl 120 mg 05/22/16 10:00 05/23/16 09:41 Cardizem Cd - PO 120 mg DAILY [facility] Administration Folic Acid 1 mg 05/22/16 10:00 05/23/16 09:41 Folic Acid - PO 1 mg DAILY [facility] Administration Heparin Sodium (Porcine) 5,000 unit 05/21/16 22:00 05/24/16 05:57 Heparin - SQ Not Given TID [facility] Sodium Chloride 1,000 mls @ 125 mls/hr 05/21/16 18:15 05/23/16 05:11 Normal Saline - IV 125 mls/hr ASDIR [facility] Administration Ampicillin Sodium/Sulbactam 100 mls @ 200 mls/hr 05/22/16 18:00 05/24/16 02:20 Sodium 3 gm/ Sodium Chloride IVPB 200 mls/hr Q8H-IV [facility] Administration Metoprolol Succinate 100 mg 05/22/16 10:00 05/23/16 21:10 Toprol Xl - PO 100 mg BID [facility] Administration Multivitamins/Minerals 1 each 05/22/16 10:00 05/23/16 09:40 Theragran-M PO 1 each DAILY [facility] Administration Pantoprazole Sodium 20 mg 05/22/16 10:00 05/23/16 09:41 Protonix - PO 20 mg DAILY [facility] Administration Prednisone 60 mg 05/22/16 10:00 05/23/16 09:40 Deltasone - PO 60 mg DAILY [facility] Administration Rosuvastatin Calcium 10 mg 05/22/16 10:00 05/23/16 09:41 Crestor - PO 10 mg DAILY [facility] Administration Tamsulosin HCl 0.4 mg 05/22/16 10:00 05/23/16 09:41 Flomax - PO 0.4 mg DAILY [facility] Administration Paraplegia. Rule out spine mass. MRI of the lumbar spine without and following intravenous contrast. T1/T2 weighted axial and sagittal as well as T2 coronal and postcontrast T1 axial and sagittal images were obtained. 15 cc of ProHance was intravenously injected. No prior CT scan or MRI of the lumbar spine is available for comparison. The height, alignment and marrow signal intensity of the vertebral bodies appear unremarkable. T11-T12 disc desiccation and mild degenerative disc disease. L1-L2 mild mainly right paracentral disc was slightly deforming the thecal sac without gross nerve root impingement. L2-L3 mild broad-based disc bulge slightly narrowing the foramina as well as a tiny central posterior annular tear without gross nerve root impingement. There is mild-to- moderate bilateral facet and the omentum hypertrophy. L3-L4 mild right lateral disc bulge reaching right L3 nerve root without definite impingement. Moderate right and mild to moderate left facet hypertrophy. L4-L5 mild to moderate broadbase and bilateral lateral disc bulge mainly left lateral impinging left L4 nerve root as well as reaching both exiting L5 nerve roots without definite impingement. Moderate bilateral facet and the omentum hypertrophy is present resulting in moderate canal stenosis. L5-S1 mild mainly central disc bulge with a tiny posterior annular tear and without gross nerve root impingement. Moderate to marked bilateral facet hypertrophy is present On the postcontrast images, there is mild enhancement of the procedure uterine ligaments from T12 through S1 as well as minimal anterior epidural enhancement around L3-L4 and L4- L5 disc bulge suggestive of inflammatory changes. Otherwise, no intraspinal mass or abnormal enhancement is seen On the T2 coronal images there is minimal dextroscoliosis of the lumbar spine. No paraspinal soft tissue abnormality is seen Impression: Multilevel disc bulge, as described above slightly narrowing the foramina at L2 -L3 level, reaching the right L3 nerve root at L3-L4 level without definite impingement. Mild-to- moderate disc bulge/ herniation at L4-L5 level impinging left L4 nerve root as well as reaching both exiting L5 nerve roots without definite impingement. Moderate degenerative since spine canal stenosis. There is mild enhancement of the posterior longitudinal ligament from T12 through S1 level which is nonspecific as well as mild enhancement along posterior margin of L3-L4 and L4-L5 disc bulge that may be due to posterior longitudinal ligament vascular enhancement versus mild inflammatory changes. ASSESSMENT AND PLAN: 65 yr old man with HTN, gout, CKD stage 2, afib, hx of triple bypass, and ETOH abuse BIBEMS from assisted living facility after being found immobile in his bed by a friend. For past four months he has progressively developed difficulties walking to the point that he couldn't get out of bed for the past one months # s/p sepsis secondary to right 2nd finger abscess s/p I&D done in ER , improving ,swelling is down with no erythema , on IV Unasyn and po cleocin continue Hand X ray can't r/o Osteomyelitis. Id on the case . # Acute Paraplegia improving on IV steroid, vitamin B12 level is normal / folic acid level is normal / phos. normal, potassium is normal , Physical therapy appreciated as patient is able to stand up with the help of the walker . Patient went for LP by IR and MRI of spine with and without contrast ,result is as above # acute gout attack with hx of Gout started on Prednisone, Hold Colchicine, hold Allopurinol for now # UTI on Unasyn IV, IVF, (history of E. faecalis, Pseudomonas UTIs) continue # Acute Dehydration on IV fluid continue # Acute on Chronic renal failure On IVF cr.1.7--1.5--1.6 with mild elevation of potassium will monitor K=5.3 # Malnourished with low Albumin level is 2.0 Nutrition consult appreciated # Atrial flutter onToprol XL, Cardizem CD for rate control; not on anticoagulation since high risk for fall and noncompliance #CAD, history of CABG on aspirin, Toprol XL, Crestor #Hypertension on Toprol XL, Cardizem CD #Hyperlipidemia on Crestor # BPH on Flomax continue # History of alcohol abuse ;states he has been sober x 6 months ; Thiamine, folic acid, multivitamin continue DVT prophylaxis with lovenox. Visit type - Emergency Visit Emergency Visit: Yes ED Registration Date: 05/21/16 Care time: The patient presented to the Emergency Department on the above date and was hospitalized for further evaluation of their emergent condition. - New Patient This patient is new to me today: No - Critical Care Critical Care patient: No - Discharge Referral [facility]erred to [facility] No
[2016-05-24] MEDS: SODIUM CHLORIDE 1,000 ML IV SCH ×2 (09:13→23:07)
[2016-05-24] MEDS: CYANOCOBALAMIN (VITAMIN B-12) 1000 MCG/1 ML VIAL IM SCH (09:14)
[2016-05-24] MEDS: predniSONE 20 MG TABLET (UD) PO SCH (09:14)
[2016-05-24] MEDS: METOPROLOL SUCCINATE 100 MG TAB.SR.24H (FP) PO SCH ×2 (09:15→21:15)
[2016-05-24] MEDS: FOLIC ACID 1 MG TABLET (FP) PO SCH (09:15)
[2016-05-24] MEDS: MULTIVITAMINS THER W-MINERALS COMBO TABLET (FP) PO SCH (09:15)
[2016-05-24] MEDS: PANTOPRAZOLE 20 MG TABLET (FP) PO SCH (09:15)
[2016-05-24] MEDS: ROSUVASTATIN CA 10 MG TABLET (FP) PO SCH (09:15)
[2016-05-24] MEDS: TAMSULOSIN HCL 0.4 MG CAP.ER.24H (FP) PO SCH (09:15)
--- NOTE | 2016-05-24 11:05 | PN ---
Progress Note (short form) - Note Progress Note: NEUROSURGERY CONSULT DICTATED Chart reviewed Pt examined History not reliable HTN, gout, afib, CABG, and ETOH abuse was found immobile in his bed in assisted living. For past 2 two weeks he has progressively developed difficulty getting out of bed with generalized weakness. He feels that symptoms first started 4 months ago when he stopped drinking alcohol and gradually he has become weaker and weaker. + weight loss. No sciatica or back pain. Occ urinary hesitancy PE: AF, VSS General- unremarkable, poor finger hygiene CN- intact; Motor 4+-5/6 throughout except B DF 4/5; Sensation intact LT/ vibration; DTR- hyporeflexia MRI LS spine-no mass; multilevel DDD L1-2 to L5-S1; moderate lateral recess stenosis L4-5 and mild-moderate foramenal stenosis L2-3 and L3-4; minimal enhancement of PLL Cr 1.6, BUN 50; WBC 14.4; ESR >130 R index finger- enterococcus, staph Blood culture- negative to date R/o systemic inflammatory/metabolic disease LS spine MRI findings very unlikely to be the primary cause of his symptomatology and acute worsening Consider EMG/NCS ID and neurology w/u
--- NOTE | 2016-05-24 12:58 | CONS ---
DATE OF CONSULTATION: 05/24/2016 REQUESTING PHYSICIAN: Amara Jane MD CHIEF COMPLAINT: Inability to ambulate secondary to weakness. HISTORY OF PRESENT ILLNESS: This patient is a 65-year-old right-handed male with hypertension, gout, chronic renal failure, atrial fibrillation, coronary artery disease, status post bypass and alcohol dependence in the past who has reported progressive weakness of his upper and lower extremities for the past 4-5 weeks. This started with acute pain in the left forearm area which led to some weakness in the left arm. He also subsequently developed lower extremity weakness to a degree that he could not stand up and walk at all. He stated that he had been drinking up to about 4 months ago when he quit. He blames much of the deterioration on his drinking cessation. He denies any fever or chills. He has lost some weight because of poor appetite. He denies loss of bowel or bladder control. He has some occasional urinary hesitancy likely secondary to BPH. He has no recent infection. He has not engaged any extensive foreign travel recently. He denies any low back pain or sciatica ever. PAST MEDICAL HISTORY: significant for chronic renal disease, hypertension, coronary artery disease status post bypass, EtOH dependence, gout. CURRENT MEDICATIONS: Deltasone, Flomax, Tylenol, Cleocin, Unasyn, subcutaneous heparin, metoprolol, diltiazem, Crestor, Protonix, vitamin B12. ALLERGIES: No known drug allergies. FAMILY HISTORY: Noncontributory. SOCIAL HISTORY: He lives in an assisted living facility. He used to be a heavy drinker. He quit smoking previously. He is retired. REVIEW OF SYSTEMS: Otherwise negative for other major cardiovascular, pulmonary, gastrointestinal, genitourinary, immunologic, neurologic, or psychological problems. He denies any prior history of malignancy, no significant infections. PHYSICAL EXAMINATION: Vital signs: Temperature 98.4, blood pressure 117/78, pulse rate of 67, O2 saturation 96% on room air. HEENT: Examination shows him to be normocephalic and atraumatic, anicteric. Neck: Supple with no nuchal rigidity. Coronary: Regular rate and rhythm. Lungs: Decreased breath sounds at the bases. Abdomen: Benign. Extremities: Some poor hygiene of the nail beds both in the feet and hands. There is no sign of DVT. Neurologic: He is awake, alert and oriented x3. Cranial nerves 2-12 are intact. Motor examination shows 4+to 5/5 strength in bilateral upper and lower extremities with the exception of bilateral dorsiflexion which is 4/5. He does have slight weakness of the left hand intrinsic muscle and left triceps. The left-sided weakness might be secondary to local IV site over his left wrist area. Sensory examination shows intact sensation to light touch and vibratory sensation. Deep tendon reflexes are hyporeflexic throughout. There is no pathological long tract sign. Gait is not tested for safety reasons. Cerebellar examination shows intact [id number] examination. LABORATORY DATA: White blood cell count initially was 20,000 and is now 14,400. ESR is greater than 130. INR is 1.33. Serum sodium 139, potassium 5.3, BUN 50, creatinine 1.6. Urinalysis shows 30 RBCs and 106 WBCs. There is trace leukocyte esterase. Right index finger culture showed group B strep or enterococcus or coagulase negative staph as well as strep viridans. Urine culture was not done. Blood cultures are negative for [address] of the head demonstrated no intracranial bleed. There is mild cerebral atrophy. There is mild periventricular small vessel disease. There is no fracture. MRI of the lumbar spine demonstrated multilevel degenerative disk disease from L2 to the L5-S1 with mild reversal of lumbar lordosis. There is moderate recess narrowing at L4-5 with foraminal narrowing. There is moderate lateral recess stenosis and foraminal stenosis at L2-3. There is hypertrophy at multiple levels. There is mild enhancement of posterior longitudinal ligament. The extent of the enhancement is most likely inflammatory. There may also be a degenerative component. IMPRESSION: 1. Multilevel lumbar degenerative disk disease with moderate stenosis at L4-5. 2. Rule out systemic inflammatory without metabolic process leading to progressive bilateral lower extremity weakness. 3. Chronic renal failure. 4. Hypertension. 5. Coronary artery disease. 6. Atrial fibrillation. RECOMMENDATIONS: The patient presents with relatively sudden onset proximal initially left arm and then bilateral lower extremity weakness. He has no axial spine pain or radicular pain of any kind. MRI does demonstrate some moderate stenosis at the L4-5 level and mild stenosis at the L2-3 and L3-4 which should not by themselves account for his current degree of symptomatology. He does not have any pathological long tract signs making a cervical spine or thoracic spine disease much less likely. He also has no sensory level on my examination today. Once again, this would be more consistent with a metabolic or inflammatory process. The patient is on prophylactic antibiotic coverage, and should continue to be followed by the infection team. Given his very poor overall medical conditions, no surgical intervention is recommended for his mostly degenerative appearing lumbar disease. The above was discussed with the patient at the bedside. Continued rehabilitation with physical therapy should be instituted. SINID RAZA M.D. JUANITA/[id number]
--- NOTE | 2016-05-24 18:10 | PN ---
Progress Note, Physician History of Present Illness: stable from mu side finger looks good - Current Medication List Current Medications: Active Medications Acetaminophen (Tylenol -) 650 mg PO Q6H PRN PRN Reason: FEVER OR PAIN Last Admin: 05/23/16 21:10 Dose: 650 mg Clindamycin HCl (Cleocin -) 300 mg PO Q6HPO [facility] Last Admin: 05/24/16 17:06 Dose: 300 mg Cyanocobalamin (Vitamin B12 Injection -) 1,000 mcg IM DAILY [facility] Last Admin: 05/24/16 09:14 Dose: 1,000 mcg Diltiazem HCl (Cardizem Cd -) 120 mg PO DAILY [facility] Last Admin: 05/24/16 09:15 Dose: 120 mg Folic Acid (Folic Acid -) 1 mg PO DAILY [facility] Last Admin: 05/24/16 09:15 Dose: 1 mg Heparin Sodium (Porcine) (Heparin -) 5,000 unit SQ TID [facility] Last Admin: 05/24/16 13:32 Dose: Not Given Sodium Chloride (Normal Saline -) 1,000 mls @ 125 mls/hr IV ASDIR [facility] Last Admin: 05/24/16 09:13 Dose: 125 mls/hr Ampicillin Sodium/Sulbactam (Sodium 3 gm/ Sodium Chloride) 100 mls @ 200 mls/ hr IVPB Q8H-IV [facility] Last Admin: 05/24/16 17:09 Dose: 200 mls/hr Metoprolol Succinate (Toprol Xl -) 100 mg PO BID [facility] Last Admin: 05/24/16 09:15 Dose: 100 mg Multivitamins/Minerals (Theragran-M) 1 each PO DAILY [facility] Last Admin: 05/24/16 09:15 Dose: 1 each Pantoprazole Sodium (Protonix -) 20 mg PO DAILY [facility] Last Admin: 05/24/16 09:15 Dose: 20 mg Prednisone (Deltasone -) 60 mg PO DAILY [facility] Last Admin: 05/24/16 09:14 Dose: 60 mg Rosuvastatin Calcium (Crestor -) 10 mg PO DAILY [facility] Last Admin: 05/24/16 09:15 Dose: 10 mg Tamsulosin HCl (Flomax -) 0.4 mg PO DAILY [facility] Last Admin: 05/24/16 09:15 Dose: 0.4 mg - Objective Vital Signs: Vital Signs Temperature 98.4 F 05/24/16 14:00 Pulse Rate 87 05/24/16 14:00 Respiratory Rate 18 05/24/16 14:00 Blood Pressure 138/96 05/24/16 14:00 O2 Sat by Pulse Oximetry (%) 96 05/24/16 08:56 Constitutional: Yes: No Distress, Calm Cardiovascular: Yes: Regular Rate and Rhythm Respiratory: Yes: Regular, CTA Bilaterally Gastrointestinal: Yes: Normal Bowel Sounds, Soft Musculoskeletal: Yes: Other Extremities: Yes: Other Neurological: Yes: Alert, Oriented Psychiatric: Yes: Alert Labs: CBC, BMP 05/24/16 06:00 05/24/16 06:00 INR, PTT INR 1.33 (0.82-1.09) H D 05/21/16 13:16 - ....Imaging MRI: Report Reviewed, Image Reviewed Assessment/Plan #Sepsis (tachycardia, wbc of 22) UTI(u/a with leuk +, elevated WBC) and Abscess in right index finger #Dehydration/generalized weakness - #Gout #Afib/Aflutter #HTN #BPH #CAD #Etoh abuse bilateral cellulitis of the legs after looking at the history and looking at the patient his patient has abscess of the finger which has been drained plan continue abx patient is improving will switch to oral abx by thursday rest as per the team neurology following
[2016-05-25] MEDS: CLINDAMYCIN HCL 150 MG CAPSULE (FP) PO SCH ×4 (00:22→17:13)
[2016-05-25] MEDS ORDERED: PT OWN MED DRAWER 7, Y5N ONE ×3 (01:41→17:11)
[2016-05-25] MEDS: AMPICILLIN NA/SULBACTAM NA 3 GM in SODIUM CHLORIDE 100 ML IVPB SCH ×3 (01:41→17:13)
[2016-05-25] MEDS: HEPARIN NA (PORCINE) 5,000 UNITS/ML 1ML VIAL SQ SCH ×3 (05:02→21:22)
[2016-05-25 08:14] LABS: ALBUMIN 1.9 g/dl (3.4-5.0); BILIRUBIN,TOTAL 0.2 mg/dL (0.2-1.0); PHOSPHOROUS 2.5 mg/dL (2.5-4.9); TOT PROT 5.2 g/dl (6.4-8.2)
[2016-05-25 08:16] LABS: CALCIUM 8.9 mg/dL (8.5-10.1); CREATININE 1.5 mg/dL (0.7-1.3); MAGNESIUM 2.3 mg/dL (1.8-2.4)
[2016-05-25 08:50] LABS: MCH 31.8 pg (25.7-33.7); MCHC 32.6 g/dl (32.0-35.9); MEAN CELL VOLUME 97.5 fl (80-96); MEAN PLT VOLUME 8.7 fl (7.5-11.1); PLATELET COUNT 338 K/MM3 (134-434); RDW 16.9 % (11.9-15.9); WHITE BLOOD COUNT 12.2 K/mm3 (4.0-10.0)
--- NOTE | 2016-05-25 09:36 | PN ---
Physical Exam: SUBJECTIVE: Patient seen and examined. Feels better. Able to lift legs, joint pain improved. Denies chest pain, palpitations, headache, N/V. OBJECTIVE: Vital Signs Period Temp Pulse Resp BP Sys/Reed Pulse Ox Last 24 Hr 97.8 F-98.4 F 85-100 18-18 123-141/72-96 96 GENERAL: The patient is awake, alert, and fully oriented, in no acute distress. EYES: PERRL, extraocular movements intact, sclera anicteric, conjunctiva clear. ENT: oropharynx clear without exudates, poor dentition, moist mucous membranes, no LAD LUNGS: Breath sounds equal, clear to auscultation bilaterally, no wheezes, no crackles HEART: irregular rhythm, rate controlled, S1, S2 ABDOMEN: Soft, nontender, nondistended, normoactive bowel sounds EXTREMITIES: 2+ pulses, warm, well-perfused, no edema. UE: sensation intact throughout, no joint pain, multiple joints with tophi. right index finger with swelling; erythema improving, no discharge, nontender. LE: able to bend at knees, sensation intact, no joint pain in knees, toes or ankles, no joint erythema or tenderness. 5/5 strength b/l NEUROLOGICAL: Normal speech PSYCH: Normal mood, normal affect. Laboratory Results - last 24 hr 05/25/16 05/25/16 06:00 06:00 WBC 12.2 H RBC 3.07 L Hgb 9.8 L Hct 29.9 L MCV 97.5 H MCHC 32.6 RDW 16.9 H Plt Count 338 MPV 8.7 Neutrophils % Y Lymphocytes % Y Sodium 139 Potassium 5.1 Chloride 106 Carbon Dioxide 21 Anion Gap 12 BUN 49 H Creatinine 1.5 H Creat Clearance w eGFR 46.97 Random Glucose 104 Calcium 8.9 Phosphorus 2.5 Magnesium 2.3 Total Bilirubin 0.2 D AST 78 H ALT 76 D Alkaline Phosphatase 104 Total Protein 5.2 L Albumin 1.9 L Active Medications Generic Name Dose Route Start Last Admin Trade Name Freq PRN Reason Stop Dose Admin Acetaminophen 650 mg 05/22/16 12:23 05/23/16 21:10 Tylenol - PO 650 mg Q6H PRN Administration FEVER OR PAIN Clindamycin HCl 300 mg 05/22/16 18:00 05/25/16 05:02 Cleocin - PO 300 mg Q6HPO [facility] Administration Cyanocobalamin 1,000 mcg 05/22/16 16:30 05/24/16 09:14 Vitamin B12 Injection - IM 1,000 mcg DAILY [facility] Administration Diltiazem HCl 120 mg 05/22/16 10:00 05/24/16 09:15 Cardizem Cd - PO 120 mg DAILY [facility] Administration Folic Acid 1 mg 05/22/16 10:00 05/24/16 09:15 Folic Acid - PO 1 mg DAILY [facility] Administration Heparin Sodium (Porcine) 5,000 unit 05/21/16 22:00 05/25/16 05:02 Heparin - SQ Not Given TID [facility] Sodium Chloride 1,000 mls @ 125 mls/hr 05/21/16 18:15 05/24/16 23:07 Normal Saline - IV 125 mls/hr ASDIR [facility] Administration Ampicillin Sodium/Sulbactam 100 mls @ 200 mls/hr 05/22/16 18:00 05/25/16 01:41 Sodium 3 gm/ Sodium Chloride IVPB 200 mls/hr Q8H-IV [facility] Administration Metoprolol Succinate 100 mg 05/22/16 10:00 05/24/16 21:15 Toprol Xl - PO 100 mg BID [facility] Administration Multivitamins/Minerals 1 each 05/22/16 10:00 05/24/16 09:15 Theragran-M PO 1 each DAILY [facility] Administration Pantoprazole Sodium 20 mg 05/22/16 10:00 05/24/16 09:15 Protonix - PO 20 mg DAILY [facility] Administration Prednisone 60 mg 05/22/16 10:00 05/24/16 09:14 Deltasone - PO 60 mg DAILY [facility] Administration Rosuvastatin Calcium 10 mg 05/22/16 10:00 05/24/16 09:15 Crestor - PO 10 mg DAILY [facility] Administration Tamsulosin HCl 0.4 mg 05/22/16 10:00 05/24/16 09:15 Flomax - PO 0.4 mg DAILY [facility] Administration ASSESSMENT/PLAN: 65 yr old man with afib, HTN, CAD s/p CABG, gout, ETOH abuse BIBEMS for 4 days of immobility admitted to telemetry for atrial flutter, sepsis from UTI/finger abscess and acute gout. - Dr. Gonsales consulted for neurosurgery assessment - weakness unlikely from LS MRI findings of mild disc bulge, recommend EMG/NCS tp to better delineate cause of weakness - Dr. Zarco consulted for neurology #LE weakness - improving, working with PT - continue physical therapy - Lumbar MRI with and w/o contrast - minimal anterior epidural enhancement around L3-L4 and L4-L5 disc bulge suggestive of inflammatory changes, no nerve impingement from t11-s1. no intraspinal mass or abnormal enhancement - head CT negative for acute infarct, hemorrhage, mass - TSH/vit B12/HbA1c wnl, unlikely to be cause by thyroid dysfunction, vitamin deficiency or diabetic neuropathy #Sepsis (tachycardia, wbc of 22) UTI(u/a with leuk +, elevated WBC) and Abscess in right index finger - improving - Unasyn 3gm q8hr IVPB - cleocin 300mg q6hr po --start 05/22/2016 - Dr. montano consulted - wound cx (e.faecalis(resistent to erythromycin, levofloxacin, tetracycline), staph coag neg and strep viridans) - MRI ordered to differentiate osteo vs gout #Gout (elevated uric acid level, multiple joints with tophi and tenderness) - prednisone 60mg daily - although NSAIDs better for pain control for acute gout, given renal impairment would limit NSAID use - will hold colchicine due to renal impairment - tylenol for pain #Afib/Aflutter - rate controlled - CHADVASC 2 (age and HTN), no anticoagulation given hx of noncompliance, hx of falls and ETOH abuse. - cardizem CD 120mg - toprol xl 100mg BID - Dr. Ni consulted #HTN - toprol xl 100mg po bid #BPH - flomax .4 1 tab daily #CAD - crestor 10mg 1 tab daily #Etoh abuse - not currently in withdrawl, ETOH level <5 - CIWA 0 - MVI - folic acid - thiamine CKD stage 3 (baseline 1.5-2.0)- stable - stable, improved Cr currently 1.5, continue to trend BMP for hyperkalemia and Cr function - renally dose medications when appropriate - Dr. Valdovinos consulted; No MIAN/ARB, K-sparing diuretics, NSAIDs, IV contrast DVT - heparin TID Diet: low sodium Visit type - Emergency Visit Emergency Visit: No - New Patient This patient is new to me today: No - Critical Care Critical Care patient: No - Discharge Referral Referred to [facility] Med [facility].: No
--- NOTE | 2016-05-25 09:37 | PN ---
Teaching Attending Note Name of Resident: Michael Ferguson ATTENDING PHYSICIAN STATEMENT I saw and evaluated the patient. I reviewed the resident's note and discussed the case with the resident. I agree with the resident's findings and plan as documented. SUBJECTIVE: Patient is feeling better, his lower extremities strength are improving. OBJECTIVE: Vital Signs Temperature 97.8 F 05/25/16 05:59 Pulse Rate 85 05/25/16 05:59 Respiratory Rate 18 05/25/16 05:59 Blood Pressure 131/72 05/25/16 05:59 O2 Sat by Pulse Oximetry (%) 96 05/24/16 21:00 GENERAL: The patient is awake, alert, and fully oriented, in no acute distress. HEAD: Normal with no signs of trauma. EYES: PERRL, extraocular movements intact, sclera anicteric, conjunctiva clear. No ptosis. ENT: Ears normal, nares patent, oropharynx clear without exudates, moist mucous membranes. NECK: Trachea midline, full range of motion, supple. LUNGS: Breath sounds equal, clear to auscultation bilaterally, no wheezes, no crackles, no accessory muscle use. HEART: Regular rate and rhythm, S1, S2 without murmur, rub or gallop. ABDOMEN: Soft, nontender, nondistended, normoactive bowel sounds, no guarding, no rebound, no hepatosplenomegaly, no masses. EXTREMITIES: 2+ pulses, warm, well-perfused, no edema. Right 2nd digit is improving, no erythema and the swelling is down. NEUROLOGICAL: Cranial nerves II through XII grossly intact. Normal speech, gait not observed. But power 5/5 PSYCH: Normal mood, normal affect. SKIN: Warm, dry, normal turgor, no rashes or lesions noted CBCD WBC 12.2 K/mm3 (4.0-10.0) H 05/25/16 06:00 RBC 3.07 M/mm3 (4.00-5.60) L 05/25/16 06:00 Hgb 9.8 GM/dL (11.7-16.9) L 05/25/16 06:00 Hct 29.9 % (35.4-49) L 05/25/16 06:00 MCV 97.5 fl (80-96) H 05/25/16 06:00 MCHC 32.6 g/dl (32.0-35.9) 05/25/16 06:00 RDW 16.9 % (11.9-15.9) H 05/25/16 06:00 Plt Count 338 K/MM3 (134-434) 05/25/16 06:00 MPV 8.7 fl (7.5-11.1) 05/25/16 06:00 CMP Sodium 139 mmol/L (136-145) 05/25/16 06:00 Potassium 5.1 mmol/L (3.5-5.1) 05/25/16 06:00 Chloride 106 mmol/L (98-107) 05/25/16 06:00 Carbon Dioxide 21 mmol/L (21-32) 05/25/16 06:00 Anion Gap 12 (8-16) 05/25/16 06:00 BUN 49 mg/dL (7-18) H 05/25/16 06:00 Creatinine 1.5 mg/dL (0.7-1.3) H 05/25/16 06:00 Creat Clearance w eGFR 46.97 (>60) 05/25/16 06:00 Random Glucose 104 mg/dL (74-106) 05/25/16 06:00 Calcium 8.9 mg/dL (8.5-10.1) 05/25/16 06:00 Total Bilirubin 0.2 mg/dL (0.2-1.0) D 05/25/16 06:00 AST 78 U/L (15-37) H 05/25/16 06:00 ALT 76 U/L (12-78) D 05/25/16 06:00 Alkaline Phosphatase 104 U/L (45-117) 05/25/16 06:00 Total Protein 5.2 g/dl (6.4-8.2) L 05/25/16 06:00 Albumin 1.9 g/dl (3.4-5.0) L 05/25/16 06:00 CARDIAC ENZYMES Creatine Kinase 41 IU/L (39-308) 05/21/16 19:17 Troponin I < 0.02 ng/ml (0.00-0.05) 05/21/16 19:17 Home Medications Medication Instructions Recorded Colchicine [Colcrys -] 0.6 mg PO DAILY 05/21/16 Losartan/Hydrochlorothiazide 1 each PO DAILY 05/21/16 [Losartan-Hctz 50-12.5 mg Tab] Metoprolol Succinate [Toprol Xl -] 100 mg PO BID 05/21/16 Nifedipine [Procardia Xl] 30 mg PO DAILY 05/21/16 Omeprazole 20 mg PO DAILY 05/21/16 Rosuvastatin [Crestor -] 10 mg PO DAILY 05/21/16 Tamsulosin HCl [Flomax] 0.4 mg PO DAILY 05/21/16 Ascorbate Calcium [Vitamin C] 1,000 mg PO DAILY 05/22/16 Aspirin [ASA -] 81 mg PO DAILY 05/22/16 Current Medications Generic Name Dose Route Start Last Admin Trade Name Freq PRN Reason Stop Dose Admin Acetaminophen 650 mg 05/22/16 12:23 05/23/16 21:10 Tylenol - PO 650 mg Q6H PRN Administration FEVER OR PAIN Clindamycin HCl 300 mg 05/22/16 18:00 05/25/16 05:02 Cleocin - PO 300 mg Q6HPO [facility] Administration Cyanocobalamin 1,000 mcg 05/22/16 16:30 05/24/16 09:14 Vitamin B12 Injection - IM 1,000 mcg DAILY [facility] Administration Diltiazem HCl 120 mg 05/22/16 10:00 05/24/16 09:15 Cardizem Cd - PO 120 mg DAILY [facility] Administration Folic Acid 1 mg 05/22/16 10:00 05/24/16 09:15 Folic Acid - PO 1 mg DAILY [facility] Administration Heparin Sodium (Porcine) 5,000 unit 05/21/16 22:00 05/25/16 05:02 Heparin - SQ Not Given TID [facility]ME Sodium Chloride 1,000 mls @ 125 mls/hr 05/21/16 18:15 05/24/16 23:07 Normal Saline - IV 125 mls/hr ASDIR [facility] Administration Ampicillin Sodium/Sulbactam 100 mls @ 200 mls/hr 05/22/16 18:00 05/25/16 01:41 Sodium 3 gm/ Sodium Chloride IVPB 200 mls/hr Q8H-IV [facility] Administration Metoprolol Succinate 100 mg 05/22/16 10:00 05/24/16 21:15 Toprol Xl - PO 100 mg BID [facility]ME Administration Multivitamins/Minerals 1 each 05/22/16 10:00 05/24/16 09:15 Theragran-M PO 1 each DAILY [facility] Administration Pantoprazole Sodium 20 mg 05/22/16 10:00 05/24/16 09:15 Protonix - PO 20 mg DAILY [facility] Administration Prednisone 60 mg 05/22/16 10:00 05/24/16 09:14 Deltasone - PO 60 mg DAILY [facility] Administration Rosuvastatin Calcium 10 mg 05/22/16 10:00 05/24/16 09:15 Crestor - PO 10 mg DAILY [facility] Administration Tamsulosin HCl 0.4 mg 05/22/16 10:00 05/24/16 09:15 Flomax - PO 0.4 mg DAILY [facility] Administration ASSESSMENT AND PLAN: 65 yr old man with HTN, gout, CKD stage 2, afib, hx of triple bypass, and ETOH abuse BIBEMS from assisted living facility after being found immobile in his bed by a friend. For past four months he has progressively developed difficulties walking to the point that he couldn't get out of bed for the past one months # s/p sepsis secondary to right 2nd finger abscess s/p I&D done in ER , improving ,swelling is down with no erythema , on IV Unasyn and po cleocin continue Hand X ray can't r/o Osteomyelitis. Id on the case . As per to switch to PO antibiotic in am # Acute Paraplegia improving on IV steroid, vitamin B12 level is normal / folic acid level is normal / phos. normal, potassium is normal , Physical therapy appreciated as patient is able to stand up with the help of the walker . Patient went for LP by IR and MRI of spine with and without contrast ,result is as above # acute gout attack with hx of Gout started on Prednisone, Hold Colchicine, hold Allopurinol for now # UTI on Unasyn IV, IVF, (history of E. faecalis, Pseudomonas UTIs) continue # Acute Dehydration on IV fluid continue # Acute on Chronic renal failure On IVF cr.1.7--1.5--1.6 --1.5 (his Baseline as per ) with K of 5.1 today from 5.3 # Malnourished with low Albumin level is 2.0 Nutrition consult appreciated # Atrial flutter onToprol XL, Cardizem CD for rate control; not on anticoagulation since high risk for fall and noncompliance #CAD, history of CABG on aspirin, Toprol XL, Crestor #Hypertension on Toprol XL, Cardizem CD #Hyperlipidemia on Crestor # BPH on Flomax continue # History of alcohol abuse ;states he has been sober x 6 months ; Thiamine, folic acid, multivitamin continue DVT prophylaxis with lovenox. MRI of the index finger to r/o Osteo
--- NOTE | 2016-05-25 09:40 | PN ---
Progress Note, Physician - Current Medication List Current Medications: Active Medications Acetaminophen (Tylenol -) 650 mg PO Q6H PRN PRN Reason: FEVER OR PAIN Last Admin: 05/23/16 21:10 Dose: 650 mg Clindamycin HCl (Cleocin -) 300 mg PO Q6HPO COUNTS INCLUDE 234 BEDS AT THE [facility] Last Admin: 05/25/16 05:02 Dose: 300 mg Cyanocobalamin (Vitamin B12 Injection -) 1,000 mcg IM DAILY COUNTS INCLUDE 234 BEDS AT THE [facility] Last Admin: 05/24/16 09:14 Dose: 1,000 mcg Diltiazem HCl (Cardizem Cd -) 120 mg PO DAILY COUNTS INCLUDE 234 BEDS AT THE [facility] Last Admin: 05/24/16 09:15 Dose: 120 mg Folic Acid (Folic Acid -) 1 mg PO DAILY COUNTS INCLUDE 234 BEDS AT THE [facility] Last Admin: 05/24/16 09:15 Dose: 1 mg Heparin Sodium (Porcine) (Heparin -) 5,000 unit SQ TID COUNTS INCLUDE 234 BEDS AT THE [facility] Last Admin: 05/25/16 05:02 Dose: Not Given Sodium Chloride (Normal Saline -) 1,000 mls @ 125 mls/hr IV ASDIR COUNTS INCLUDE 234 BEDS AT THE [facility] Last Admin: 05/24/16 23:07 Dose: 125 mls/hr Ampicillin Sodium/Sulbactam (Sodium 3 gm/ Sodium Chloride) 100 mls @ 200 mls/ hr IVPB Q8H-IV COUNTS INCLUDE 234 BEDS AT THE [facility] Last Admin: 05/25/16 01:41 Dose: 200 mls/hr Metoprolol Succinate (Toprol Xl -) 100 mg PO BID COUNTS INCLUDE 234 BEDS AT THE [facility] Last Admin: 05/24/16 21:15 Dose: 100 mg Multivitamins/Minerals (Theragran-M) 1 each PO DAILY COUNTS INCLUDE 234 BEDS AT THE [facility] Last Admin: 05/24/16 09:15 Dose: 1 each Pantoprazole Sodium (Protonix -) 20 mg PO DAILY COUNTS INCLUDE 234 BEDS AT THE [facility] Last Admin: 05/24/16 09:15 Dose: 20 mg Prednisone (Deltasone -) 60 mg PO DAILY COUNTS INCLUDE 234 BEDS AT THE [facility] Last Admin: 05/24/16 09:14 Dose: 60 mg Rosuvastatin Calcium (Crestor -) 10 mg PO DAILY COUNTS INCLUDE 234 BEDS AT THE [facility] Last Admin: 05/24/16 09:15 Dose: 10 mg Tamsulosin HCl (Flomax -) 0.4 mg PO DAILY COUNTS INCLUDE 234 BEDS AT THE [facility] Last Admin: 05/24/16 09:15 Dose: 0.4 mg - Objective Vital Signs: Vital Signs Temperature 97.8 F 05/25/16 05:59 Pulse Rate 85 05/25/16 05:59 Respiratory Rate 18 05/25/16 05:59 Blood Pressure 131/72 05/25/16 05:59 O2 Sat by Pulse Oximetry (%) 96 05/24/16 21:00 Eyes: Yes: WNL, Conjunctiva Clear, EOM Intact HENT: Yes: WNL, Atraumatic, Normocephalic Neck: Yes: WNL, Supple, Trachea Midline Cardiovascular: Yes: Pulse Irregular, S1, S2 Respiratory: Yes: WNL, Regular, CTA Bilaterally Gastrointestinal: Yes: WNL, Normal Bowel Sounds Genitourinary: Yes: WNL Musculoskeletal: Yes: WNL Extremities: Yes: WNL Edema: No Integumentary: Yes: WNL Neurological: Yes: WNL, Alert, Oriented ...Motor Strength: WNL Psychiatric: Yes: WNL Labs: CBC, BMP 05/25/16 06:00 05/25/16 06:00 INR, PTT INR 1.33 (0.82-1.09) H D 05/21/16 13:16 Assessment/Plan CAD s/p CABG 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 Suspect component of non-adherence with outpatient meds. ASA now being held for LP to r/o CIDP.
[2016-05-25] MEDS: predniSONE 20 MG TABLET (UD) PO SCH (10:02)
[2016-05-25] MEDS: FOLIC ACID 1 MG TABLET (FP) PO SCH (10:02)
[2016-05-25] MEDS: TAMSULOSIN HCL 0.4 MG CAP.ER.24H (FP) PO SCH (10:02)
[2016-05-25] MEDS: MULTIVITAMINS THER W-MINERALS COMBO TABLET (FP) PO SCH (10:02)
[2016-05-25] MEDS: METOPROLOL SUCCINATE 100 MG TAB.SR.24H (FP) PO SCH ×2 (10:02→21:22)
[2016-05-25] MEDS: ROSUVASTATIN CA 10 MG TABLET (FP) PO SCH (10:02)
[2016-05-25] MEDS: CYANOCOBALAMIN (VITAMIN B-12) 1000 MCG/1 ML VIAL IM SCH (10:02)
[2016-05-25] MEDS: PANTOPRAZOLE 20 MG TABLET (FP) PO SCH (10:02)
--- NOTE | 2016-05-25 10:23 | CONSULT ---
Consult - text type - Consultation Consultation Note: Renal Consult for CKD/Hyperkalemia This is a 65 year old Gentleman with PMhx of CKD Stage 3 (baseline Cr 1.4-1.8), Gout, Afib, CAD s/p Bypass, Hx of ETOH abuse (quit drinking in March) presented with complaints of lower extremity weakness that has been progressive over the course of 3 weeks. Pt reports that the LE weakness has been gradual in onset. No numbness. No Upper ext weakness. No chest pain or sob. NO fever or chills. No bowel or urinary incontinence. Reports good oral intake. Has had diarrhea since yesterday. No flank pain, no dark urine. No Abd pain. Denies any nsaid use at home. K ws 5.3 yesterday. Not on MIAN/ARB. PMhx: As above Allergies: NKDA Family Hx: NC Social Hx: Former ETOH abuse. Former smoker ROS: As per HPI, all other pertinent ros negative Home Meds: Home Medications Medication Instructions Recorded Colchicine [Colcrys -] 0.6 mg PO DAILY 05/21/16 Losartan/Hydrochlorothiazide 1 each PO DAILY 05/21/16 [Losartan-Hctz 50-12.5 mg Tab] Metoprolol Succinate [Toprol Xl -] 100 mg PO BID 05/21/16 Nifedipine [Procardia Xl] 30 mg PO DAILY 05/21/16 Omeprazole 20 mg PO DAILY 05/21/16 Rosuvastatin [Crestor -] 10 mg PO DAILY 05/21/16 Tamsulosin HCl [Flomax] 0.4 mg PO DAILY 05/21/16 Ascorbate Calcium [Vitamin C] 1,000 mg PO DAILY 05/22/16 Aspirin [ASA -] 81 mg PO DAILY 05/22/16 Vital Signs Temperature 97.8 F 05/25/16 05:59 Pulse Rate 85 05/25/16 05:59 Respiratory Rate 18 05/25/16 05:59 Blood Pressure 131/72 05/25/16 05:59 O2 Sat by Pulse Oximetry (%) 96 05/24/16 21:00 Intake & Output 05/22/16 05/23/16 05/24/16 05/25/16 23:59 23:59 23:59 23:59 Intake Total 2500 1380 3300 975 Output Total 1700 Balance 2500 1380 1600 975 Gen: NAD, awake and alert HEENT: NC/AT, MMM, No JVD CVS: RRR, No M/R Lungs: CTA, no rales Abd: soft NT/ND Ext: No edema, clubbing or cyanosis : No bladder distension Neuro: AAOx3, LE weakness, sensation in tact CBC, BMP 05/25/16 06:00 05/25/16 06:00 Current Medications Acetaminophen (Tylenol -) 650 mg PO Q6H PRN PRN Reason: FEVER OR PAIN Last Admin: 05/23/16 21:10 Dose: 650 mg Clindamycin HCl (Cleocin -) 300 mg PO Q6HPO [facility] Last Admin: 05/25/16 05:02 Dose: 300 mg Cyanocobalamin (Vitamin B12 Injection -) 1,000 mcg IM DAILY [facility] Last Admin: 05/25/16 10:02 Dose: 1,000 mcg Diltiazem HCl (Cardizem Cd -) 120 mg PO DAILY [facility] Last Admin: 05/25/16 10:02 Dose: 120 mg Folic Acid (Folic Acid -) 1 mg PO DAILY [facility] Last Admin: 05/25/16 10:02 Dose: 1 mg Heparin Sodium (Porcine) (Heparin -) 5,000 unit SQ TID [facility] Last Admin: 05/25/16 05:02 Dose: Not Given Sodium Chloride (Normal Saline -) 1,000 mls @ 125 mls/hr IV ASDIR [facility] Last Admin: 05/24/16 23:07 Dose: 125 mls/hr Ampicillin Sodium/Sulbactam (Sodium 3 gm/ Sodium Chloride) 100 mls @ 200 mls/ hr IVPB Q8H-IV [facility] Last Admin: 05/25/16 10:01 Dose: 200 mls/hr Metoprolol Succinate (Toprol Xl -) 100 mg PO BID [facility] Last Admin: 05/25/16 10:02 Dose: 100 mg Multivitamins/Minerals (Theragran-M) 1 each PO DAILY [facility] Last Admin: 05/25/16 10:02 Dose: 1 each Pantoprazole Sodium (Protonix -) 20 mg PO DAILY [facility] Last Admin: 05/25/16 10:02 Dose: 20 mg Prednisone (Deltasone -) 60 mg PO DAILY [facility] Last Admin: 05/25/16 10:02 Dose: 60 mg Rosuvastatin Calcium (Crestor -) 10 mg PO DAILY [facility] Last Admin: 05/25/16 10:02 Dose: 10 mg Tamsulosin HCl (Flomax -) 0.4 mg PO DAILY [facility] Last Admin: 05/25/16 10:02 Dose: 0.4 mg A/p 65 year old Gentleman with PMhx of CKD Stage 3 (baseline Cr 1.4-1.8), Gout, Afib , CAD s/p Bypass, Hx of ETOH abuse (quit drinking in March) presented with complaints of lower extremity weakness that has been progressive over the course of 3 weeks. #CKD Stage 3 with hx of subnephrotic proteinuria Renal function at baseline on IVF -> can decreae rate to 75cc per hour and plan to discontinue if pt is tolerated an adaqute oral diet Dose all meds for Cr cl less then 40 avoid NSAIDs, IV contrast #Mild Hyperkalemia No MIAN/ARB, K-sparing diuretics K improved on IVF Trend for now no need for kayexlate #LE weakness continue w/u and management as per primary and neurology #diarrhea Check stool c-diff if continues Thank you Will follow Edgar Valdovinos DO
[2016-05-25 10:43] LABS: METAMYELOCYTE 1 % (0-2)
--- NOTE | 2016-05-25 11:18 | PN ---
Progress Note (short form) - Note Progress Note: NEUROSURGERY No new complaint PE: AF, VSS General- unremarkable, poor finger hygiene CN- intact; Motor 4+-5/6 throughout except B DF 4/5; Sensation intact LT/ vibration; DTR- hyporeflexia MRI LS spine-no mass; multilevel DDD L1-2 to L5-S1; moderate lateral recess stenosis L4-5 and mild-moderate foramenal stenosis L2-3 and L3-4; minimal enhancement of PLL R index finger- enterococcus, staph Blood culture- negative to date R/o systemic inflammatory/metabolic disease LS spine MRI findings alone very unlikely to be the primary cause of his symptomatology and acute worsening Consider EMG/NCS tp better delineate cause of the weakness
--- NOTE | 2016-05-25 17:49 | PN ---
Progress Note, Physician History of Present Illness: patient stable doing well - Current Medication List Current Medications: Active Medications Acetaminophen (Tylenol -) 650 mg PO Q6H PRN PRN Reason: FEVER OR PAIN Last Admin: 05/23/16 21:10 Dose: 650 mg Clindamycin HCl (Cleocin -) 300 mg PO Q6HPO [facility] Last Admin: 05/25/16 17:13 Dose: 300 mg Cyanocobalamin (Vitamin B12 Injection -) 1,000 mcg IM DAILY [facility] Last Admin: 05/25/16 10:02 Dose: 1,000 mcg Diltiazem HCl (Cardizem Cd -) 120 mg PO DAILY [facility] Last Admin: 05/25/16 10:02 Dose: 120 mg Folic Acid (Folic Acid -) 1 mg PO DAILY [facility] Last Admin: 05/25/16 10:02 Dose: 1 mg Heparin Sodium (Porcine) (Heparin -) 5,000 unit SQ TID [facility] Last Admin: 05/25/16 13:59 Dose: Not Given Ampicillin Sodium/Sulbactam (Sodium 3 gm/ Sodium Chloride) 100 mls @ 200 mls/ hr IVPB Q8H-IV [facility] Last Admin: 05/25/16 17:13 Dose: 200 mls/hr Lorazepam (Ativan Injection -) 2 mg IVPUSH ONCE ONE Stop: 05/25/16 16:35 Metoprolol Succinate (Toprol Xl -) 100 mg PO BID [facility] Last Admin: 05/25/16 10:02 Dose: 100 mg Multivitamins/Minerals (Theragran-M) 1 each PO DAILY [facility] Last Admin: 05/25/16 10:02 Dose: 1 each Pantoprazole Sodium (Protonix -) 20 mg PO DAILY [facility] Last Admin: 05/25/16 10:02 Dose: 20 mg Prednisone (Deltasone -) 60 mg PO DAILY [facility] Last Admin: 05/25/16 10:02 Dose: 60 mg Rosuvastatin Calcium (Crestor -) 10 mg PO DAILY [facility] Last Admin: 05/25/16 10:02 Dose: 10 mg Tamsulosin HCl (Flomax -) 0.4 mg PO DAILY [facility] Last Admin: 05/25/16 10:02 Dose: 0.4 mg - Objective Vital Signs: Vital Signs Temperature 97.7 F 05/25/16 14:00 Pulse Rate 99 H 05/25/16 14:00 Respiratory Rate 18 05/25/16 14:00 Blood Pressure 144/90 05/25/16 14:00 O2 Sat by Pulse Oximetry (%) 96 05/25/16 09:00 Constitutional: Yes: No Distress, Calm Cardiovascular: Yes: Regular Rate and Rhythm Respiratory: Yes: Regular, CTA Bilaterally Gastrointestinal: Yes: Normal Bowel Sounds, Soft Musculoskeletal: Yes: Other Extremities: Yes: Other (finger looks a lot better) Wound/Incision: Yes: Clean/Dry Neurological: Yes: Alert, Oriented Psychiatric: Yes: Alert Labs: CBC, BMP 05/25/16 06:00 05/25/16 06:00 INR, PTT INR 1.33 (0.82-1.09) H D 05/21/16 13:16 Assessment/Plan #Sepsis (tachycardia, wbc of 22) UTI(u/a with leuk +, elevated WBC) and Abscess in right index finger #Dehydration/generalized weakness - #Gout #Afib/Aflutter #HTN #BPH #CAD #Etoh abuse bilateral cellulitis of the legs after looking at the history and looking at the patient his patient has abscess of the finger which has been drained plan continue abx patient is improving will switch to oral abx by thursday since patient is doing better we should get mri of th hand to r/o osteo of the finger
--- NOTE | 2016-05-25 21:59 | PN ---
Progress Note, Physician History of Present Illness: 65 yr old man with HTN, gout, CKD stage 2, AFib., hx of triple bypass, and ETOH abuse BIBEMS from assisted living facility after being found immobile in his bed by a friend. For past four months he has progressively developed difficulty walking, in the last two weeks getting out of bed and generalized weakness. With effort, last week he was able to get to the bathroom but in the last 4 days he has been unable to move due to joint pain and generalized weakness. He has been laying in bed without food, water or medications. He feels that symptoms first started 4 months ago when he stopped drinking alcohol and gradually he has become weaker and weaker. Denies loss of consciousness, fall, head trauma, slurred speech, hemiparalysis, loss of muscle tone, back injury, chest pain, SOB. - Current Medication List Current Medications: Active Medications Acetaminophen (Tylenol -) 650 mg PO Q6H PRN PRN Reason: FEVER OR PAIN Last Admin: 05/23/16 21:10 Dose: 650 mg Clindamycin HCl (Cleocin -) 300 mg PO Q6HPO [facility] Last Admin: 05/25/16 17:13 Dose: 300 mg Cyanocobalamin (Vitamin B12 Injection -) 1,000 mcg IM DAILY [facility] Last Admin: 05/25/16 10:02 Dose: 1,000 mcg Diltiazem HCl (Cardizem Cd -) 120 mg PO DAILY [facility] Last Admin: 05/25/16 10:02 Dose: 120 mg Folic Acid (Folic Acid -) 1 mg PO DAILY [facility] Last Admin: 05/25/16 10:02 Dose: 1 mg Heparin Sodium (Porcine) (Heparin -) 5,000 unit SQ TID [facility] Last Admin: 05/25/16 21:22 Dose: Not Given Ampicillin Sodium/Sulbactam (Sodium 3 gm/ Sodium Chloride) 100 mls @ 200 mls/ hr IVPB Q8H-IV [facility] Last Admin: 05/25/16 17:13 Dose: 200 mls/hr Lorazepam (Ativan Injection -) 2 mg IVPUSH ONCE ONE Stop: 05/25/16 16:35 Metoprolol Succinate (Toprol Xl -) 100 mg PO BID [facility] Last Admin: 05/25/16 21:22 Dose: 100 mg Multivitamins/Minerals (Theragran-M) 1 each PO DAILY [facility] Last Admin: 05/25/16 10:02 Dose: 1 each Pantoprazole Sodium (Protonix -) 20 mg PO DAILY [facility] Last Admin: 05/25/16 10:02 Dose: 20 mg Prednisone (Deltasone -) 60 mg PO DAILY [facility] Last Admin: 05/25/16 10:02 Dose: 60 mg Rosuvastatin Calcium (Crestor -) 10 mg PO DAILY [facility] Last Admin: 05/25/16 10:02 Dose: 10 mg Tamsulosin HCl (Flomax -) 0.4 mg PO DAILY [facility] Last Admin: 05/25/16 10:02 Dose: 0.4 mg - Objective Vital Signs: Vital Signs Temperature 98.1 F 05/25/16 16:40 Pulse Rate 98 H 05/25/16 16:40 Respiratory Rate 18 05/25/16 16:40 Blood Pressure 151/99 05/25/16 16:40 O2 Sat by Pulse Oximetry (%) 96 05/25/16 09:00 Constitutional: Yes: No Distress, Calm Eyes: Yes: Conjunctiva Clear, EOM Intact HENT: Yes: Atraumatic, Normocephalic Neck: Yes: Supple, Trachea Midline Cardiovascular: Yes: Regular Rate and Rhythm, S1, S2 Respiratory: Yes: Regular, CTA Bilaterally Gastrointestinal: Yes: Normal Bowel Sounds, Soft Genitourinary: Yes: WNL Breast(s): Yes: WNL Musculoskeletal: Yes: Muscle Weakness Extremities: Yes: WNL Edema: No Peripheral Pulses WNL: Yes Peripheral Pulses: Left Radial: 1+, Right Radial: 1+ Neurological: Yes: Alert, Oriented, Babinski negative, Cran Nerves II-XII Intact ...Motor Strength: LUE, LLE (4/5 LE.), RUE Psychiatric: Yes: Alert, Oriented Labs: CBC, BMP 05/25/16 06:00 05/25/16 06:00 INR, PTT INR 1.33 (0.82-1.09) H D 05/21/16 13:16 - ....Imaging MRI: Report Reviewed, Image Reviewed Problem List - Problems (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 For past four months he has progressively developed difficulties walking to the point that he couldn't get out of bed in the last four days. He feels that symptoms first started 4 months ago when he stopped drinking alcohol and gradually he has become weaker and weaker. Denies loss of consciousness, fall, head trauma, slurred speech, hemiparalysis, loss of muscle tone, back injury, chest pain, SOB. At the examination his paraplegia LE improved to 4-/5 bilaterally. Impression: paraplegia due to vitamin B12 deficiency, possible CIDP. Plan: - B12 im. daily, banana bag daily, check B12, folate level. - spinal fluid interventional radiology CSF for protein, opening pressure, cytology, glucose, protein to rule out CIDP- paraplegia can be seen in very advanced B12 deficiency but one of the differential diagnosis is a neuropathy CIDP - DVT prophylaxis with lovenox. - continues asa, statin, - PT/OT Thank you for this consult.
[2016-05-26] MEDS: CLINDAMYCIN HCL 150 MG CAPSULE (FP) PO SCH ×5 (00:35→23:29)
[2016-05-26] MEDS: AMPICILLIN NA/SULBACTAM NA 3 GM in SODIUM CHLORIDE 100 ML IVPB SCH ×3 (01:36→18:05)
[2016-05-26] MEDS: HEPARIN NA (PORCINE) 5,000 UNITS/ML 1ML VIAL SQ SCH ×3 (06:08→21:44)
[2016-05-26 08:18] LABS: MCH 30.9 pg (25.7-33.7); MCHC 31.8 g/dl (32.0-35.9); MEAN CELL VOLUME 97.2 fl (80-96); MEAN PLT VOLUME 8.5 fl (7.5-11.1); PLATELET COUNT 410 K/MM3 (134-434); RDW 17.1 % (11.9-15.9); WHITE BLOOD COUNT 15.8 K/mm3 (4.0-10.0)
[2016-05-26 08:45] LABS: CALCIUM 9.7 mg/dL (8.5-10.1); CREATININE 1.7 mg/dL (0.7-1.3)
[2016-05-26] MEDS ORDERED: PT OWN MED DRAWER 7, Y5N ONE ×2 (09:09→17:30)
[2016-05-26] MEDS: MULTIVITAMINS THER W-MINERALS COMBO TABLET (FP) PO SCH (09:13)
[2016-05-26] MEDS: FOLIC ACID 1 MG TABLET (FP) PO SCH (09:13)
[2016-05-26] MEDS: ROSUVASTATIN CA 10 MG TABLET (FP) PO SCH (09:13)
[2016-05-26] MEDS: TAMSULOSIN HCL 0.4 MG CAP.ER.24H (FP) PO SCH (09:13)
[2016-05-26] MEDS: predniSONE 20 MG TABLET (UD) PO SCH (09:13)
[2016-05-26] MEDS: PANTOPRAZOLE 20 MG TABLET (FP) PO SCH (09:13)
[2016-05-26] MEDS: METOPROLOL SUCCINATE 100 MG TAB.SR.24H (FP) PO SCH ×2 (09:14→21:45)
[2016-05-26] MEDS: CYANOCOBALAMIN (VITAMIN B-12) 1000 MCG/1 ML VIAL IM SCH (09:14)
[2016-05-26] MEDS ORDERED: LORAZEPAM CARPU-JECT 2 MG/ML DISP.SYRIN ONE (10:14)
[2016-05-26] MEDS ORDERED: LORAZEPAM CARPU-JECT 2 MG/ML DISP.SYRIN IVPUSH ONE (10:15)
--- NOTE | 2016-05-26 10:17 | PN ---
Progress Note (short form) - Note Progress Note: NEUROSURGERY No new complaint Feels "better and stronger" PE: Tmax 98.2, AF, VSS General- unremarkable, poor finger hygiene CN- intact; Motor 4+-5/6 throughout except B DF 4/5; Sensation intact LT/ vibration; DTR- hyporeflexia MRI LS spine-no mass; multilevel DDD L1-2 to L5-S1; moderate lateral recess stenosis L4-5 and mild-moderate foramenal stenosis L2-3 and L3-4; minimal enhancement of PLL R index finger- enterococcus, staph Blood culture- negative to date WBC 15.8 R/o systemic inflammatory/metabolic disease LS spine MRI findings alone unlikely to be the primary cause of his symptomatology and acute worsening Neurology opined B12 deficiency vs CIDP Downstairs for UE MRI Consider EMG/NCS to better delineate cause of the weakness
[2016-05-26 11:08] LABS: PLATELET ESTIMATE ADEQUATE (NORMAL)
--- NOTE | 2016-05-26 13:09 | PN ---
Progress Note, Physician History of Present Illness: seen and examined today in nad. no overnight events. no new complaints. - Current Medication List Current Medications: Active Medications Acetaminophen (Tylenol -) 650 mg PO Q6H PRN PRN Reason: FEVER OR PAIN Last Admin: 05/23/16 21:10 Dose: 650 mg Clindamycin HCl (Cleocin -) 300 mg PO Q6HPO [facility] Last Admin: 05/26/16 11:54 Dose: 300 mg Cyanocobalamin (Vitamin B12 Injection -) 1,000 mcg IM DAILY [facility] Last Admin: 05/26/16 09:14 Dose: 1,000 mcg Diltiazem HCl (Cardizem Cd -) 120 mg PO DAILY [facility] Last Admin: 05/26/16 09:13 Dose: 120 mg Folic Acid (Folic Acid -) 1 mg PO DAILY [facility] Last Admin: 05/26/16 09:13 Dose: 1 mg Heparin Sodium (Porcine) (Heparin -) 5,000 unit SQ TID [facility] Last Admin: 05/26/16 06:08 Dose: Not Given Ampicillin Sodium/Sulbactam (Sodium 3 gm/ Sodium Chloride) 100 mls @ 200 mls/ hr IVPB Q8H-IV [facility] Last Admin: 05/26/16 09:14 Dose: 200 mls/hr Metoprolol Succinate (Toprol Xl -) 100 mg PO BID [facility] Last Admin: 05/26/16 09:14 Dose: 100 mg Multivitamins/Minerals (Theragran-M) 1 each PO DAILY [facility] Last Admin: 05/26/16 09:13 Dose: 1 each Pantoprazole Sodium (Protonix -) 20 mg PO DAILY [facility] Last Admin: 05/26/16 09:13 Dose: 20 mg Prednisone (Deltasone -) 40 mg PO DAILY [facility] Last Admin: 05/26/16 09:13 Dose: 40 mg Rosuvastatin Calcium (Crestor -) 10 mg PO DAILY [facility] Last Admin: 05/26/16 09:13 Dose: 10 mg Tamsulosin HCl (Flomax -) 0.4 mg PO DAILY [facility] Last Admin: 05/26/16 09:13 Dose: 0.4 mg - Objective Vital Signs: Vital Signs Temperature 98.0 F 05/26/16 10:00 Pulse Rate 76 05/26/16 10:00 Respiratory Rate 18 05/26/16 10:00 Blood Pressure 153/99 05/26/16 10:00 O2 Sat by Pulse Oximetry (%) 92 L 05/26/16 09:00 Constitutional: Yes: Well Nourished, No Distress, Calm Eyes: Yes: WNL, Conjunctiva Clear, EOM Intact, PERRL HENT: Yes: WNL, Atraumatic, Normocephalic Neck: Yes: WNL, Supple, Trachea Midline Cardiovascular: Yes: Pulse Irregular, Murmur, S1, S2. No: Regular Rate and Rhythm, Bradycardia, Tachycardia, Bruit, JVD, Gallop, Rub, S3, S4, Varicosities Respiratory: Yes: Regular, CTA Bilaterally. No: Rales, Rhonchi, Wheezes Gastrointestinal: Yes: WNL, Normal Bowel Sounds, Soft. No: Distention, Tenderness Musculoskeletal: Yes: Muscle Weakness Extremities: Yes: WNL Edema: No Peripheral Pulses WNL: Yes Peripheral Pulses: Left Doralis Pedis: 2+, Right Dorsalis Pedis: 2+ Integumentary: Yes: WNL Neurological: Yes: Weakness Psychiatric: Yes: Alert, Oriented Labs: CBC, BMP 05/26/16 08:00 05/26/16 08:00 INR, PTT INR 1.33 (0.82-1.09) H D 05/21/16 13:16 - ....Imaging Chest X-ray: Report Reviewed, Image Reviewed EKG: Report Reviewed, Image Reviewed Other: Report Reviewed, Image Reviewed (tele-Aflutter/Afib, HR controlled, frequent pvcs, bigeminy) Problem List - Problems (1) Acute paraplegia Code(s): G82.20 - PARAPLEGIA, UNSPECIFIED (2) Acute renal failure Code(s): N17.9 - ACUTE KIDNEY FAILURE, UNSPECIFIED Qualifiers: Acute renal failure type: with acute tubular necrosis Qualified Code (s): N17.0 - Acute kidney failure with tubular necrosis (3) Alcohol abuse with alcohol-induced disorder Code(s): F10.19 - ALCOHOL ABUSE WITH UNSPECIFIED ALCOHOL-INDUCED DISORDER (4) Atrial fib/flutter, transient Code(s): [id number] - (5) Atrial flutter with rapid ventricular response Code(s): I48.92 - UNSPECIFIED ATRIAL FLUTTER (6) CAD (coronary artery disease), autologous vein bypass graft Code(s): I25.810 - ATHEROSCLEROSIS OF CABG W/O ANGINA PECTORIS Qualifiers: (7) HLD (hyperlipidemia) Code(s): E78.5 - HYPERLIPIDEMIA, UNSPECIFIED Qualifiers: Hyperlipidemia type: unspecified Qualified Code(s): E78.5 - Hyperlipidemia, unspecified (8) HTN (hypertension) Code(s): I10 - ESSENTIAL (PRIMARY) HYPERTENSION Qualifiers: Hypertension type: essential hypertension Qualified Code(s): I10 - Essential (primary) hypertension (9) S/P triple vessel bypass Code(s): Z95.1 - PRESENCE OF AORTOCORONARY BYPASS GRAFT Assessment/Plan CAD s/p CABG Mixed valvular heart dz (mild-mod MR/ mod AR) Chronic atrial flutter History of alcoholism Possible Osteo digit left hand LE weakness REC: HR is adequately controlled, cont Cardizem CD 120 and Toprol 100 bid As per chart pt not on full AC due to h/o frequent falls and etoh abuse, has been on ASA CAD stable- ASA on hold for planned LP, would resume when safe to do so Outpatient follow up for chronic CAD, aflutter, and valvular heart disease, adherence with outpatient follow up and medications is essential
--- NOTE | 2016-05-26 13:25 | PN ---
Physical Exam: SUBJECTIVE: Patient seen and examined c/o loose bowel movement x4 Denies chest pain, palpitations, headache, abdominal pain, hematochezia OBJECTIVE: Vital Signs Period Temp Pulse Resp BP Sys/Reed Pulse Ox Last 24 Hr 97.7 F-98.2 F 76-99 18-18 142-159/85-99 92-95 GENERAL: The patient is awake, alert, and fully oriented, in no acute distress. EYES: PERRL, extraocular movements intact, sclera anicteric, conjunctiva clear. ENT: oropharynx clear without exudates, poor dentition, moist mucous membranes, no LAD LUNGS: Breath sounds equal, clear to auscultation bilaterally, no wheezes, no crackles HEART: irregular rhythm, rate controlled, S1, S2 ABDOMEN: Soft, nontender, nondistended, normoactive bowel sounds EXTREMITIES: 2+ pulses, warm, well-perfused, no edema. UE: sensation intact throughout, no joint pain, multiple joints with tophi. right index finger with swelling; trace erythema over swelling, no discharge, nontender. LE: able to bend at knees, sensation intact, no joint pain in knees, toes or ankles, no joint erythema or tenderness. 5/5 strength b/l NEUROLOGICAL: Normal speech PSYCH: Normal mood, normal affect. Laboratory Results - last 24 hr 05/26/16 05/26/16 08:00 08:00 WBC 15.8 H RBC 3.36 L Hgb 10.4 L Hct 32.7 L MCV 97.2 H MCHC 31.8 L RDW 17.1 H Plt Count 410 D MPV 8.5 Neutrophils % 89.0 H Lymphocytes % 6.0 L D Monocytes % 2.0 L Eosinophils % 0.0 Basophils % 0.0 Band Neutrophils 1.0 Myelocytes 2 Differential Comment Manual diff done Platelet Estimate Adequate Sodium 136 Potassium 5.3 H Chloride 103 Carbon Dioxide 21 Anion Gap 12 BUN 54 H Creatinine 1.7 H Random Glucose 93 Calcium 9.7 Active Medications Generic Name Dose Route Start Last Admin Trade Name Freq PRN Reason Stop Dose Admin Acetaminophen 650 mg 05/22/16 12:23 05/23/16 21:10 Tylenol - PO 650 mg Q6H PRN Administration FEVER OR PAIN Clindamycin HCl 300 mg 05/22/16 18:00 05/26/16 11:54 Cleocin - PO 300 mg Q6HPO [facility] Administration Cyanocobalamin 1,000 mcg 05/22/16 16:30 05/26/16 09:14 Vitamin B12 Injection - IM 1,000 mcg DAILY [facility] Administration Diltiazem HCl 120 mg 05/22/16 10:00 05/26/16 09:13 Cardizem Cd - PO 120 mg DAILY [facility] Administration Folic Acid 1 mg 05/22/16 10:00 05/26/16 09:13 Folic Acid - PO 1 mg DAILY [facility] Administration Heparin Sodium (Porcine) 5,000 unit 05/21/16 22:00 05/26/16 06:08 Heparin - SQ Not Given TID [facility] Ampicillin Sodium/Sulbactam 100 mls @ 200 mls/hr 05/22/16 18:00 05/26/16 09:14 Sodium 3 gm/ Sodium Chloride IVPB 200 mls/hr Q8H-IV [facility] Administration Metoprolol Succinate 100 mg 05/22/16 10:00 05/26/16 09:14 Toprol Xl - PO 100 mg BID [facility] Administration Multivitamins/Minerals 1 each 05/22/16 10:00 05/26/16 09:13 Theragran-M PO 1 each DAILY [facility] Administration Pantoprazole Sodium 20 mg 05/22/16 10:00 05/26/16 09:13 Protonix - PO 20 mg DAILY [facility] Administration Prednisone 40 mg 05/26/16 10:00 05/26/16 09:13 Deltasone - PO 40 mg DAILY [facility] Administration Rosuvastatin Calcium 10 mg 05/22/16 10:00 05/26/16 09:13 Crestor - PO 10 mg DAILY [facility] Administration Tamsulosin HCl 0.4 mg 05/22/16 10:00 05/26/16 09:13 Flomax - PO 0.4 mg DAILY [facility] Administration ASSESSMENT/PLAN: 65 yr old man with afib, HTN, CAD s/p CABG, gout, ETOH abuse BIBEMS for 4 days of immobility admitted to telemetry for atrial flutter, sepsis from UTI/finger abscess and acute gout. - Dr. Gonsales consulted for neurosurgery assessment - weakness unlikely from LS MRI findings of mild disc bulge, recommend EMG/NCS tp to better delineate cause of weakness - Dr. Zarco consulted for neurology #Diarrhea - test for C.diff, suspicion high since patient is on clinda #LE weakness - improving, working with PT, last note 2/3 ambulated 3 feet, will required rehab - continue physical therapy - Lumbar MRI with and w/o contrast - minimal anterior epidural enhancement around L3-L4 and L4-L5 disc bulge suggestive of inflammatory changes, no nerve impingement from t11-s1. no intraspinal mass or abnormal enhancement - head CT negative for acute infarct, hemorrhage, mass - TSH/vit B12/HbA1c wnl, unlikely to be cause by thyroid dysfunction, vitamin deficiency or diabetic neuropathy - d/c spinal tap given improvement in symptoms. #Sepsis (tachycardia, wbc of 22) UTI(u/a with leuk +, elevated WBC) and Abscess in right index finger - improving - Unasyn 3gm q8hr IVPB - cleocin 300mg q6hr po --start 05/22/2016 - Dr. montano consulted - wound cx (e.faecalis(resistent to erythromycin, levofloxacin, tetracycline), staph coag neg and strep viridans) - MRI hand with inflammatory changes, however osteomyelitis cannot be ruled out. - leucocytosis is slightly elevated today from steroid use vs infectious cause, will continue abx, test for C.diff. #Gout (elevated uric acid level, multiple joints with tophi and tenderness) - prednisone 60mg daily - although NSAIDs better for pain control for acute gout, given renal impairment would limit NSAID use - will hold colchicine due to renal impairment - tylenol for pain #Afib/Aflutter - rate controlled - CHADVASC 2 (age and HTN), no anticoagulation given hx of noncompliance, hx of falls and ETOH abuse. - cardizem CD 120mg - toprol xl 100mg BID - Dr. Ni consulted #HTN, elevated, will consider HCTZ if continues to be elevated. - toprol xl 100mg po bid #BPH - flomax .4 1 tab daily #CAD - crestor 10mg 1 tab daily #Etoh abuse - MVI - folic acid - thiamine CKD stage 3 (baseline 1.5-2.0)- stable - stable, improved Cr currently 1.7, continue to trend BMP for hyperkalemia and Cr function - potassium elevated today to 5.3, will change diet to low potassium and repeat - renally dose medications when appropriate - Dr. Valdovinos consulted; No MIAN/ARB, K-sparing diuretics, NSAIDs, IV contrast DVT - heparin TID Diet: low sodium/low potassium Visit type - Emergency Visit Emergency Visit: No - New Patient This patient is new to me today: No - Critical Care Critical Care patient: No - Discharge Referral Referred to [facility] No
--- NOTE | 2016-05-26 14:56 | PN ---
Progress Note, Physician History of Present Illness: Chart reviewed and neurology opinion and plan noted. The patient states he is feeling much better with no complaints. There is minimal lower extremity weakness proximal greater than distal inconsistent findings with CIPP. - Current Medication List Current Medications: Active Medications Acetaminophen (Tylenol -) 650 mg PO Q6H PRN PRN Reason: FEVER OR PAIN Last Admin: 05/23/16 21:10 Dose: 650 mg Clindamycin HCl (Cleocin -) 300 mg PO Q6HPO [facility] Last Admin: 05/26/16 11:54 Dose: 300 mg Cyanocobalamin (Vitamin B12 Injection -) 1,000 mcg IM DAILY [facility] Last Admin: 05/26/16 09:14 Dose: 1,000 mcg Diltiazem HCl (Cardizem Cd -) 120 mg PO DAILY [facility] Last Admin: 05/26/16 09:13 Dose: 120 mg Folic Acid (Folic Acid -) 1 mg PO DAILY [facility] Last Admin: 05/26/16 09:13 Dose: 1 mg Heparin Sodium (Porcine) (Heparin -) 5,000 unit SQ TID [facility] Last Admin: 05/26/16 14:32 Dose: 5,000 unit Ampicillin Sodium/Sulbactam (Sodium 3 gm/ Sodium Chloride) 100 mls @ 200 mls/ hr IVPB Q8H-IV [facility] Last Admin: 05/26/16 09:14 Dose: 200 mls/hr Metoprolol Succinate (Toprol Xl -) 100 mg PO BID [facility] Last Admin: 05/26/16 09:14 Dose: 100 mg Multivitamins/Minerals (Theragran-M) 1 each PO DAILY [facility] Last Admin: 05/26/16 09:13 Dose: 1 each Pantoprazole Sodium (Protonix -) 20 mg PO DAILY [facility] Last Admin: 05/26/16 09:13 Dose: 20 mg Prednisone (Deltasone -) 40 mg PO DAILY [facility] Last Admin: 05/26/16 09:13 Dose: 40 mg Rosuvastatin Calcium (Crestor -) 10 mg PO DAILY [facility] Last Admin: 05/26/16 09:13 Dose: 10 mg Tamsulosin HCl (Flomax -) 0.4 mg PO DAILY [facility] Last Admin: 05/26/16 09:13 Dose: 0.4 mg - Objective Vital Signs: Vital Signs Temperature 98.0 F 05/26/16 10:00 Pulse Rate 76 05/26/16 10:00 Respiratory Rate 18 05/26/16 10:00 Blood Pressure 153/99 05/26/16 10:00 O2 Sat by Pulse Oximetry (%) 92 L 05/26/16 09:00 Constitutional: Yes: No Distress, Calm HENT: Yes: Normocephalic ...Motor Strength: WNL, LUE (UE 5/5 MS bilaterally with LE 4/5 proximal muscle strenght and 4+5 distal MS) Labs: CBC, BMP 05/26/16 08:00 05/26/16 08:00 INR, PTT INR 1.33 (0.82-1.09) H D 05/21/16 13:16 Assessment/Plan Progressive motor weakness with difficulty ambulating likely related to DM, however agree with NS EMG/NVC is needed. Suggest optimize general medical condition, offer ETOH abuse treatment and continue further neurological evaluation as outpatient with EMG/NCV agree with discharge when medically stable
--- NOTE | 2016-05-26 15:58 | PN ---
Progress Note, Physician Chief Complaint: Patient seen in his bed. Known to me from my office feeling much better nd stronger maintains good urine output no chest pains, No sob - Current Medication List Current Medications: Active Medications Acetaminophen (Tylenol -) 650 mg PO Q6H PRN PRN Reason: FEVER OR PAIN Last Admin: 05/23/16 21:10 Dose: 650 mg Clindamycin HCl (Cleocin -) 300 mg PO Q6HPO [facility] Last Admin: 05/26/16 11:54 Dose: 300 mg Cyanocobalamin (Vitamin B12 Injection -) 1,000 mcg IM DAILY [facility] Last Admin: 05/26/16 09:14 Dose: 1,000 mcg Diltiazem HCl (Cardizem Cd -) 120 mg PO DAILY [facility] Last Admin: 05/26/16 09:13 Dose: 120 mg Folic Acid (Folic Acid -) 1 mg PO DAILY [facility] Last Admin: 05/26/16 09:13 Dose: 1 mg Heparin Sodium (Porcine) (Heparin -) 5,000 unit SQ TID [facility] Last Admin: 05/26/16 14:32 Dose: 5,000 unit Ampicillin Sodium/Sulbactam (Sodium 3 gm/ Sodium Chloride) 100 mls @ 200 mls/ hr IVPB Q8H-IV [facility] Last Admin: 05/26/16 09:14 Dose: 200 mls/hr Metoprolol Succinate (Toprol Xl -) 100 mg PO BID [facility] Last Admin: 05/26/16 09:14 Dose: 100 mg Multivitamins/Minerals (Theragran-M) 1 each PO DAILY [facility] Last Admin: 05/26/16 09:13 Dose: 1 each Pantoprazole Sodium (Protonix -) 20 mg PO DAILY [facility] Last Admin: 05/26/16 09:13 Dose: 20 mg Prednisone (Deltasone -) 40 mg PO DAILY [facility] Last Admin: 05/26/16 09:13 Dose: 40 mg Rosuvastatin Calcium (Crestor -) 10 mg PO DAILY [facility] Last Admin: 05/26/16 09:13 Dose: 10 mg Tamsulosin HCl (Flomax -) 0.4 mg PO DAILY [facility] Last Admin: 05/26/16 09:13 Dose: 0.4 mg - Objective Vital Signs: Vital Signs Temperature 98.0 F 05/26/16 10:00 Pulse Rate 76 05/26/16 10:00 Respiratory Rate 18 05/26/16 10:00 Blood Pressure 153/99 05/26/16 10:00 O2 Sat by Pulse Oximetry (%) 92 L 05/26/16 09:00 Constitutional: Yes: Well Nourished, No Distress, Anxious Eyes: Yes: WNL Neck: Yes: WNL Cardiovascular: Yes: WNL, S1, S2 Respiratory: Yes: Regular, CTA Bilaterally Gastrointestinal: Yes: WNL, Normal Bowel Sounds, Soft Edema: No Neurological: Yes: Alert, Oriented Labs: CBC, BMP 05/26/16 08:00 05/26/16 08:00 INR, PTT INR 1.33 (0.82-1.09) H D 05/21/16 13:16 Problem List - Problems (1) Acute renal failure Code(s): N17.9 - ACUTE KIDNEY FAILURE, UNSPECIFIED Qualifiers: Acute renal failure type: with acute tubular necrosis Qualified Code (s): N17.0 - Acute kidney failure with tubular necrosis (2) Alcoholic ketoacidosis Code(s): E87.2 - ACIDOSIS (3) Ataxia Code(s): R27.0 - ATAXIA, UNSPECIFIED (4) 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 - DEFICIENCY OF OTHER SPECIFIED B GROUP VITAMINS G32.0 - SUBAC COMB DEGENERATION OF SPINAL CORD IN DIS CLASSD ELSWHR (5) Atrial flutter with rapid ventricular response Code(s): I48.92 - UNSPECIFIED ATRIAL FLUTTER (6) Dehydration Code(s): E86.0 - DEHYDRATION (7) Gout attack Code(s): M10.9 - GOUT, UNSPECIFIED (8) Atrial flutter Code(s): I48.92 - UNSPECIFIED ATRIAL FLUTTER Qualifiers: Atrial flutter type: unspecified Qualified Code(s): I48.92 - Unspecified atrial flutter (9) CKD (chronic kidney disease) stage 3, GFR 30-59 ml/min Code(s): N18.3 - CHRONIC KIDNEY DISEASE, STAGE 3 (MODERATE) (10) Renal failure Code(s): N19 - UNSPECIFIED KIDNEY FAILURE (11) HTN (hypertension) Code(s): I10 - ESSENTIAL (PRIMARY) HYPERTENSION Qualifiers: Hypertension type: essential hypertension Qualified Code(s): I10 - Essential (primary) hypertension Assessment/Plan 65 y/o with h/o CKD, Chronic ETOH, came in with weakness of the lower extremities feeling better Azotemia is almost t his baseline Scheduled to d/c to the NH Will monitor the renl functions with ypu, and as outpatient after his discharge Kaley Kelly MD
--- NOTE | 2016-05-26 16:24 | PN ---
Teaching Attending Note Name of Resident: Michael Ferguson ATTENDING PHYSICIAN STATEMENT I saw and evaluated the patient. I reviewed the resident's note and discussed the case with the resident. I agree with the resident's findings and plan as documented. SUBJECTIVE: Patient is feeling better, with no acute distress. OBJECTIVE: Vital Signs Temperature 98.1 F 05/26/16 14:00 Pulse Rate 74 05/26/16 14:00 Respiratory Rate 18 05/26/16 14:00 Blood Pressure 141/86 05/26/16 14:00 O2 Sat by Pulse Oximetry (%) 92 L 05/26/16 09:00 GENERAL: The patient is awake, alert, and fully oriented, in no acute distress. HEAD: Normal with no signs of trauma. EYES: PERRL, extraocular movements intact, sclera anicteric, conjunctiva clear. No ptosis. ENT: Ears normal, nares patent, oropharynx clear without exudates, moist mucous membranes. NECK: Trachea midline, full range of motion, supple. LUNGS: Breath sounds equal, clear to auscultation bilaterally, no wheezes, no crackles, no accessory muscle use. HEART: Regular rate and rhythm, S1, S2 without murmur, rub or gallop. ABDOMEN: Soft, nontender, nondistended, normoactive bowel sounds, no guarding, no rebound, no hepatosplenomegaly, no masses. EXTREMITIES: 2+ pulses, warm, well-perfused, no edema. Right 2nd digit is improving, no erythema and the swelling is down. NEUROLOGICAL: Cranial nerves II through XII grossly intact. Normal speech, gait not observed. But power 5/5 PSYCH: Normal mood, normal affect. SKIN: Warm, dry, normal turgor, no rashes or lesions noted CBCD WBC 15.8 K/mm3 (4.0-10.0) H 05/26/16 08:00 RBC 3.36 M/mm3 (4.00-5.60) L 05/26/16 08:00 Hgb 10.4 GM/dL (11.7-16.9) L 05/26/16 08:00 Hct 32.7 % (35.4-49) L 05/26/16 08:00 MCV 97.2 fl (80-96) H 05/26/16 08:00 MCHC 31.8 g/dl (32.0-35.9) L 05/26/16 08:00 RDW 17.1 % (11.9-15.9) H 05/26/16 08:00 Plt Count 410 K/MM3 (134-434) D 05/26/16 08:00 MPV 8.5 fl (7.5-11.1) 05/26/16 08:00 CMP Sodium 136 mmol/L (136-145) 05/26/16 08:00 Potassium 5.3 mmol/L (3.5-5.1) H 05/26/16 08:00 Chloride 103 mmol/L (98-107) 05/26/16 08:00 Carbon Dioxide 21 mmol/L (21-32) 05/26/16 08:00 Anion Gap 12 (8-16) 05/26/16 08:00 BUN 54 mg/dL (7-18) H 05/26/16 08:00 Creatinine 1.7 mg/dL (0.7-1.3) H 05/26/16 08:00 Creat Clearance w eGFR 46.97 (>60) 05/25/16 06:00 Random Glucose 93 mg/dL (74-106) 05/26/16 08:00 Calcium 9.7 mg/dL (8.5-10.1) 05/26/16 08:00 Total Bilirubin 0.2 mg/dL (0.2-1.0) D 05/25/16 06:00 AST 78 U/L (15-37) H 05/25/16 06:00 ALT 76 U/L (12-78) D 05/25/16 06:00 Alkaline Phosphatase 104 U/L (45-117) 05/25/16 06:00 Total Protein 5.2 g/dl (6.4-8.2) L 05/25/16 06:00 Albumin 1.9 g/dl (3.4-5.0) L 05/25/16 06:00 CARDIAC ENZYMES Creatine Kinase 41 IU/L (39-308) 05/21/16 19:17 Troponin I < 0.02 ng/ml (0.00-0.05) 05/21/16 19:17 Current Medications Generic Name Dose Route Start Last Admin Trade Name Freq PRN Reason Stop Dose Admin Acetaminophen 650 mg 05/22/16 12:23 05/23/16 21:10 Tylenol - PO 650 mg Q6H PRN Administration FEVER OR PAIN Clindamycin HCl 300 mg 05/22/16 18:00 05/26/16 11:54 Cleocin - PO 300 mg Q6HPO [facility] Administration Cyanocobalamin 1,000 mcg 05/22/16 16:30 05/26/16 09:14 Vitamin B12 Injection - IM 1,000 mcg DAILY [facility] Administration Diltiazem HCl 120 mg 05/22/16 10:00 05/26/16 09:13 Cardizem Cd - PO 120 mg DAILY [facility] Administration Folic Acid 1 mg 05/22/16 10:00 05/26/16 09:13 Folic Acid - PO 1 mg DAILY [facility] Administration Heparin Sodium (Porcine) 5,000 unit 05/21/16 22:00 05/26/16 14:32 Heparin - SQ 5,000 unit TID [facility] Administration Ampicillin Sodium/Sulbactam 100 mls @ 200 mls/hr 05/22/16 18:00 05/26/16 09:14 Sodium 3 gm/ Sodium Chloride IVPB 200 mls/hr Q8H-IV [facility] Administration Metoprolol Succinate 100 mg 05/22/16 10:00 05/26/16 09:14 Toprol Xl - PO 100 mg BID [facility] Administration Multivitamins/Minerals 1 each 05/22/16 10:00 05/26/16 09:13 Theragran-M PO 1 each DAILY [facility] Administration Pantoprazole Sodium 20 mg 05/22/16 10:00 05/26/16 09:13 Protonix - PO 20 mg DAILY [facility] Administration Prednisone 40 mg 05/26/16 10:00 05/26/16 09:13 Deltasone - PO 40 mg DAILY [facility] Administration Rosuvastatin Calcium 10 mg 05/22/16 10:00 05/26/16 09:13 Crestor - PO 10 mg DAILY [facility] Administration Tamsulosin HCl 0.4 mg 05/22/16 10:00 05/26/16 09:13 Flomax - PO 0.4 mg DAILY [facility] Administration Home Medications Medication Instructions Recorded Colchicine [Colcrys -] 0.6 mg PO DAILY 05/21/16 Losartan/Hydrochlorothiazide 1 each PO DAILY 05/21/16 [Losartan-Hctz 50-12.5 mg Tab] Metoprolol Succinate [Toprol Xl -] 100 mg PO BID 05/21/16 Nifedipine [Procardia Xl] 30 mg PO DAILY 05/21/16 Omeprazole 20 mg PO DAILY 05/21/16 Rosuvastatin [Crestor -] 10 mg PO DAILY 05/21/16 Tamsulosin HCl [Flomax] 0.4 mg PO DAILY 05/21/16 Ascorbate Calcium [Vitamin C] 1,000 mg PO DAILY 05/22/16 Aspirin [ASA -] 81 mg PO DAILY 05/22/16 ASSESSMENT AND PLAN: 65 yr old man with HTN, gout, CKD stage 2, afib, hx of triple bypass, and ETOH abuse BIBEMS from assisted living facility after being found immobile in his bed by a friend. For past four months he has progressively developed difficulties walking to the point that he couldn't get out of bed for the past one months # s/p sepsis secondary to right 2nd finger abscess s/p I&D done in ER , improving ,swelling is down with no erythema , on IV Unasyn and po cleocin continue Hand X ray can't r/o Osteomyelitis. Id on the case . As per to switch to PO antibiotic in am, MRI result Cannot r/o Osteomyelitis. # Acute Paraplegia improved on IV steroid, vitamin B12 level is normal / folic acid level is normal / phos. normal, potassium is normal , Physical therapy appreciated as patient is able to stand up with the help of the walker . # acute gout attack with hx of Gout started on Prednisone continue, Hold Colchicine, hold Allopurinol for now # UTI on Unasyn IV, IVF, (history of E. faecalis, Pseudomonas UTIs) continue # Acute Dehydration on IV fluid continue # Acute on Chronic renal failure On IVF cr.1.7--1.5--1.6 --1.5--1.7 today (his Baseline as per ) with K of 5.3 today # Malnourished with low Albumin level is 2.0 Nutrition consult appreciated # Atrial flutter onToprol XL, Cardizem CD for rate control; not on anticoagulation since high risk for fall and noncompliance #CAD, history of CABG on aspirin, Toprol XL, Crestor #Hypertension on Toprol XL, Cardizem CD #Hyperlipidemia on Crestor # BPH on Flomax continue # History of alcohol abuse ;states he has been sober x 6 months ; Thiamine, folic acid, multivitamin continue DVT prophylaxis with lovenox. MRI of the index finger to r/o Osteo
--- NOTE | 2016-05-26 16:55 | PN ---
Progress Note, Physician History of Present Illness: patient stable doing well thumb looks well enlargement of the thumb still present - Current Medication List Current Medications: Active Medications Acetaminophen (Tylenol -) 650 mg PO Q6H PRN PRN Reason: FEVER OR PAIN Last Admin: 05/23/16 21:10 Dose: 650 mg Clindamycin HCl (Cleocin -) 300 mg PO Q6HPO [facility] Last Admin: 05/26/16 11:54 Dose: 300 mg Cyanocobalamin (Vitamin B12 Injection -) 1,000 mcg IM DAILY [facility] Last Admin: 05/26/16 09:14 Dose: 1,000 mcg Diltiazem HCl (Cardizem Cd -) 120 mg PO DAILY [facility] Last Admin: 05/26/16 09:13 Dose: 120 mg Folic Acid (Folic Acid -) 1 mg PO DAILY [facility] Last Admin: 05/26/16 09:13 Dose: 1 mg Heparin Sodium (Porcine) (Heparin -) 5,000 unit SQ TID [facility] Last Admin: 05/26/16 14:32 Dose: 5,000 unit Ampicillin Sodium/Sulbactam (Sodium 3 gm/ Sodium Chloride) 100 mls @ 200 mls/ hr IVPB Q8H-IV [facility] Last Admin: 05/26/16 09:14 Dose: 200 mls/hr Metoprolol Succinate (Toprol Xl -) 100 mg PO BID [facility] Last Admin: 05/26/16 09:14 Dose: 100 mg Multivitamins/Minerals (Theragran-M) 1 each PO DAILY [facility] Last Admin: 05/26/16 09:13 Dose: 1 each Pantoprazole Sodium (Protonix -) 20 mg PO DAILY [facility] Last Admin: 05/26/16 09:13 Dose: 20 mg Prednisone (Deltasone -) 40 mg PO DAILY [facility] Last Admin: 05/26/16 09:13 Dose: 40 mg Rosuvastatin Calcium (Crestor -) 10 mg PO DAILY [facility] Last Admin: 05/26/16 09:13 Dose: 10 mg Tamsulosin HCl (Flomax -) 0.4 mg PO DAILY [facility] Last Admin: 05/26/16 09:13 Dose: 0.4 mg - Objective Vital Signs: Vital Signs Temperature 98.1 F 05/26/16 14:00 Pulse Rate 74 05/26/16 14:00 Respiratory Rate 18 05/26/16 14:00 Blood Pressure 141/86 05/26/16 14:00 O2 Sat by Pulse Oximetry (%) 92 L 05/26/16 09:00 Constitutional: Yes: No Distress, Calm Neck: Yes: Supple Cardiovascular: Yes: Regular Rate and Rhythm Respiratory: Yes: Regular, CTA Bilaterally Gastrointestinal: Yes: Normal Bowel Sounds, Soft Musculoskeletal: Yes: Other Extremities: Yes: Other (thumb looks much better) Wound/Incision: Yes: Clean/Dry Neurological: Yes: Alert, Oriented Psychiatric: Yes: Alert Labs: CBC, BMP 05/26/16 08:00 05/26/16 08:00 INR, PTT INR 1.33 (0.82-1.09) H D 05/21/16 13:16 Assessment/Plan #Sepsis (tachycardia, wbc of 22) UTI(u/a with leuk +, elevated WBC) and Abscess in right index finger #Dehydration/generalized weakness - #Gout #Afib/Aflutter #HTN #BPH #CAD #Etoh abuse bilateral cellulitis of the legs after looking at the history and looking at the patient his patient has abscess of the finger which has been drained plan we can switch patient to oral ampicillin 500 mg every 8 hourly for another one week rest ct as per the team
[2016-05-27] MEDS ORDERED: PT OWN MED DRAWER 7, Y5N ONE ×2 (00:56→09:36)
[2016-05-27] MEDS: AMPICILLIN NA/SULBACTAM NA 3 GM in SODIUM CHLORIDE 100 ML IVPB SCH ×2 (01:17→09:48)
[2016-05-27] MEDS: HEPARIN NA (PORCINE) 5,000 UNITS/ML 1ML VIAL SQ SCH ×2 (06:39→15:00)
[2016-05-27] MEDS: CLINDAMYCIN HCL 150 MG CAPSULE (FP) PO SCH ×3 (06:39→17:22)
--- NOTE | 2016-05-27 08:11 | PN ---
Physical Exam: SUBJECTIVE: Patient seen and examined few episodes of non-sustained palpitations for few seconds. still has diarrhea but it has improved in consistency, not as watery as previous denies chest pain, shortness of breath, fever, abdominal pain. discussed with CS regarding Adira. OBJECTIVE: Vital Signs Period Temp Pulse Resp BP Sys/Reed Pulse Ox Last 24 Hr 96.4 F-98.1 F 74-119 18-18 141-158/78-99 92-96 GENERAL: The patient is awake, alert, and fully oriented, in no acute distress. LUNGS: Breath sounds equal, clear to auscultation bilaterally, HEART: afib, S1, S2 without murmur, rate controlled ABDOMEN: Soft, nontender, nondistended, normoactive bowel sounds, no guarding, no rebound, EXTREMITIES: 2+ pulses, warm, well-perfused, no edema. Right index finger with swelling - few scabs, no discharge, nontender, mild erythema, no warmth b/l LE: strength 4/5, improving. sensation and motor function intact at toes, ankle, knees and hip, normal nontender muscle tone. no joint warmth, tenderness or palpable effusion. NEUROLOGICAL: Cranial nerves II through XII grossly intact. Normal speech. PSYCH: Normal mood, normal affect. Laboratory Results - last 24 hr 05/26/16 05/26/16 08:00 08:00 WBC 15.8 H RBC 3.36 L Hgb 10.4 L Hct 32.7 L MCV 97.2 H MCHC 31.8 L RDW 17.1 H Plt Count 410 D MPV 8.5 Neutrophils % 89.0 H Lymphocytes % 6.0 L D Monocytes % 2.0 L Eosinophils % 0.0 Basophils % 0.0 Band Neutrophils 1.0 Myelocytes 2 Differential Comment Manual diff done Platelet Estimate Adequate Sodium 136 Potassium 5.3 H Chloride 103 Carbon Dioxide 21 Anion Gap 12 BUN 54 H Creatinine 1.7 H Random Glucose 93 Calcium 9.7 Active Medications Generic Name Dose Route Start Last Admin Trade Name Freq PRN Reason Stop Dose Admin Acetaminophen 650 mg 05/22/16 12:23 05/23/16 21:10 Tylenol - PO 650 mg Q6H PRN Administration FEVER OR PAIN Clindamycin HCl 300 mg 05/22/16 18:00 05/27/16 06:39 Cleocin - PO 300 mg Q6HPO [facility] Administration Cyanocobalamin 1,000 mcg 05/22/16 16:30 05/26/16 09:14 Vitamin B12 Injection - IM 1,000 mcg DAILY [facility] Administration Diltiazem HCl 120 mg 05/22/16 10:00 05/26/16 09:13 Cardizem Cd - PO 120 mg DAILY [facility] Administration Folic Acid 1 mg 05/22/16 10:00 05/26/16 09:13 Folic Acid - PO 1 mg DAILY [facility]ME Administration Heparin Sodium (Porcine) 5,000 unit 05/21/16 22:00 05/27/16 06:39 Heparin - SQ 5,000 unit TID [facility] Administration Ampicillin Sodium/Sulbactam 100 mls @ 200 mls/hr 05/22/16 18:00 05/27/16 01:17 Sodium 3 gm/ Sodium Chloride IVPB 200 mls/hr Q8H-IV [facility] Administration Metoprolol Succinate 100 mg 05/22/16 10:00 05/26/16 21:45 Toprol Xl - PO 100 mg BID ESME Administration Multivitamins/Minerals 1 each 05/22/16 10:00 05/26/16 09:13 Theragran-M PO 1 each DAILY [facility] Administration Pantoprazole Sodium 20 mg 05/22/16 10:00 05/26/16 09:13 Protonix - PO 20 mg DAILY [facility] Administration Prednisone 40 mg 05/26/16 10:00 05/26/16 09:13 Deltasone - PO 40 mg DAILY [facility]ME Administration Rosuvastatin Calcium 10 mg 05/22/16 10:00 05/26/16 09:13 Crestor - PO 10 mg DAILY [facility] Administration Tamsulosin HCl 0.4 mg 05/22/16 10:00 05/26/16 09:13 Flomax - PO 0.4 mg DAILY [facility] Administration ASSESSMENT/PLAN: 65 yr old man with afib, HTN, CAD s/p CABG, gout, ETOH abuse BIBEMS for 4 days of immobility admitted to telemetry for atrial flutter, sepsis from UTI/finger abscess and acute gout. - Dr. Gonsales consulted for neurosurgery assessment - weakness unlikely from LS MRI findings of mild disc bulge, recommend EMG/NCS tp to better delineate cause of weakness - Dr. Zarco consulted for neurology #Diarrhea - improved - test for C.diff - negative for Ag and toxin #LE weakness - improving, working with PT, last note 2/3 ambulated 3 feet, will required rehab - continue physical therapy - Lumbar MRI with and w/o contrast - minimal anterior epidural enhancement around L3-L4 and L4-L5 disc bulge suggestive of inflammatory changes, no nerve impingement from t11-s1. no intraspinal mass or abnormal enhancement - head CT negative for acute infarct, hemorrhage, mass - TSH/vit B12/HbA1c wnl, unlikely to be cause by thyroid dysfunction, vitamin deficiency or diabetic neuropathy - d/c spinal tap given improvement in symptoms. #Sepsis (tachycardia, wbc of 22) UTI(u/a with leuk +, elevated WBC) and Abscess in right index finger - improving - Unasyn 3gm q8hr IVPB - cleocin 300mg q6hr po --start 05/22/2016 - Dr. montano consulted - wound cx (e.faecalis(resistent to erythromycin, levofloxacin, tetracycline), staph coag neg and strep viridans) - MRI hand with inflammatory changes, however osteomyelitis cannot be ruled out. - leucocytosis is slightly elevated today from steroid use vs infectious cause, will continue abx, test for C.diff. #Gout (elevated uric acid level, multiple joints with tophi and tenderness) - prednisone 60mg daily - although NSAIDs better for pain control for acute gout, given renal impairment would limit NSAID use - will hold colchicine due to renal impairment - tylenol for pain #Afib/Aflutter - rate controlled - CHADVASC 2 (age and HTN), no anticoagulation given hx of noncompliance, hx of falls and ETOH abuse. - cardizem CD 240mg - toprol xl 100mg BID - Dr. Ni consulted #HTN, elevated, increase cardizem to 240mg daily - toprol xl 100mg po bid #BPH - flomax .4 1 tab daily #CAD - crestor 10mg 1 tab daily #Etoh abuse - MVI - folic acid - thiamine CKD stage 3 (baseline 1.5-2.0)- stable - stable, improved Cr currently 1.8, continue to trend BMP for hyperkalemia and Cr function - potassium elevated today to 5.2, will change diet to low potassium and repeat - renally dose medications when appropriate - Dr. Valdovinos consulted; No MIAN/ARB, K-sparing diuretics, NSAIDs, IV contrast DVT - heparin TID Diet: low sodium/low potassium Visit type - Emergency Visit Emergency Visit: No - New Patient This patient is new to me today: No - Critical Care Critical Care patient: No - Discharge Referral Referred to [facility] No
[2016-05-27 08:14] LABS: ALBUMIN 2.1 g/dl (3.4-5.0); BILIRUBIN,TOTAL 0.2 mg/dL (0.2-1.0); CALCIUM 9.4 mg/dL (8.5-10.1); CREATININE 1.8 mg/dL (0.7-1.3); PHOSPHOROUS 3.9 mg/dL (2.5-4.9); TOT PROT 5.5 g/dl (6.4-8.2)
--- NOTE | 2016-05-27 08:24 | PN ---
Progress Note (short form) - Note Progress Note: NEUROSURGERY No new complaint Feels "better and stronger" PE: AF, VSS General- unremarkable, poor finger hygiene CN- intact; Motor 4+-5/6 throughout except B DF 4/5; Sensation intact LT/ vibration; DTR- hyporeflexia MRI LS spine-no mass; multilevel DDD L1-2 to L5-S1; moderate lateral recess stenosis L4-5 and mild-moderate foramenal stenosis L2-3 and L3-4; minimal enhancement of PLL MRI R hand- RA vs osteo R index finger culture - enterococcus, coag negative staph, strep viridans Blood culture- negative to date WBC 15.8 Systemic inflammatory/metabolic disease LS spine MRI findings alone unlikely to be the primary cause of his symptomatology and acute worsening Reimage if future worsening Neurology opined B12 deficiency vs CIDP No neurosurgical intervention recommended Complete iv abx course per ID Will sign off
[2016-05-27] MEDS: TAMSULOSIN HCL 0.4 MG CAP.ER.24H (FP) PO SCH (09:47)
[2016-05-27] MEDS: ROSUVASTATIN CA 10 MG TABLET (FP) PO SCH (09:47)
[2016-05-27] MEDS: FOLIC ACID 1 MG TABLET (FP) PO SCH (09:47)
[2016-05-27] MEDS: predniSONE 20 MG TABLET (UD) PO SCH (09:47)
[2016-05-27] MEDS: PANTOPRAZOLE 20 MG TABLET (FP) PO SCH (09:48)
[2016-05-27] MEDS: METOPROLOL SUCCINATE 100 MG TAB.SR.24H (FP) PO SCH (09:48)
[2016-05-27] MEDS: MULTIVITAMINS THER W-MINERALS COMBO TABLET (FP) PO SCH (09:48)
[2016-05-27] MEDS: CYANOCOBALAMIN (VITAMIN B-12) 1000 MCG/1 ML VIAL IM SCH (09:48)
--- NOTE | 2016-05-27 10:13 | PN ---
Progress Note, Physician Chief Complaint: no complaints (no CP or SOB, denies palps) - Current Medication List Current Medications: Active Medications Acetaminophen (Tylenol -) 650 mg PO Q6H PRN PRN Reason: FEVER OR PAIN Last Admin: 05/23/16 21:10 Dose: 650 mg Clindamycin HCl (Cleocin -) 300 mg PO Q6HPO [facility] Last Admin: 05/27/16 06:39 Dose: 300 mg Cyanocobalamin (Vitamin B12 Injection -) 1,000 mcg IM DAILY [facility] Last Admin: 05/27/16 09:48 Dose: 1,000 mcg Diltiazem HCl (Cardizem Cd -) 120 mg PO DAILY [facility] Last Admin: 05/27/16 09:47 Dose: 120 mg Folic Acid (Folic Acid -) 1 mg PO DAILY [facility] Last Admin: 05/27/16 09:47 Dose: 1 mg Heparin Sodium (Porcine) (Heparin -) 5,000 unit SQ TID [facility] Last Admin: 05/27/16 06:39 Dose: 5,000 unit Ampicillin Sodium/Sulbactam (Sodium 3 gm/ Sodium Chloride) 100 mls @ 200 mls/ hr IVPB Q8H-IV [facility] Last Admin: 05/27/16 09:48 Dose: 200 mls/hr Metoprolol Succinate (Toprol Xl -) 100 mg PO BID [facility] Last Admin: 05/27/16 09:48 Dose: 100 mg Multivitamins/Minerals (Theragran-M) 1 each PO DAILY [facility] Last Admin: 05/27/16 09:48 Dose: 1 each Pantoprazole Sodium (Protonix -) 20 mg PO DAILY [facility] Last Admin: 05/27/16 09:48 Dose: 20 mg Prednisone (Deltasone -) 40 mg PO DAILY [facility] Last Admin: 05/27/16 09:47 Dose: 40 mg Rosuvastatin Calcium (Crestor -) 10 mg PO DAILY [facility] Last Admin: 05/27/16 09:47 Dose: 10 mg Tamsulosin HCl (Flomax -) 0.4 mg PO DAILY [facility] Last Admin: 05/27/16 09:47 Dose: 0.4 mg - Objective Vital Signs: Vital Signs Temperature 98.0 F 05/27/16 06:00 Pulse Rate 89 05/27/16 06:00 Respiratory Rate 18 05/27/16 06:00 Blood Pressure 158/94 05/27/16 06:00 O2 Sat by Pulse Oximetry (%) 96 05/26/16 21:00 Constitutional: Yes: No Distress Cardiovascular: Yes: Pulse Irregular Respiratory: Yes: CTA Bilaterally Gastrointestinal: Yes: Soft Edema: No Neurological: Yes: Alert Labs: CBC, BMP 05/26/16 08:00 05/27/16 05:35 INR, PTT INR 1.33 (0.82-1.09) H D 05/21/16 13:16 Microbiology 05/22/16 08:30 Blood - Peripheral Venous Blood Culture - Preliminary NO GROWTH OBTAINED AFTER 24 HOURS, INCUBATION TO CONTINUE FOR 4 DAYS. 05/22/16 08:25 Blood - Peripheral Venous Blood Culture - Preliminary NO GROWTH OBTAINED AFTER 24 HOURS, INCUBATION TO CONTINUE FOR 4 DAYS. 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 As per chart pt not on full AC due to h/o frequent falls and etoh abuse, has been on ASA CAD stable- ASA on hold for planned LP, would resume when safe to do so Outpatient follow up for chronic CAD, aflutter, and valvular heart disease, adherence with outpatient follow up was emphasized.
[2016-05-27 10:48] LABS: MCH 31.1 pg (25.7-33.7); MCHC 31.7 g/dl (32.0-35.9); MEAN CELL VOLUME 98.1 fl (80-96); MEAN PLT VOLUME 8.7 fl (7.5-11.1); PLATELET COUNT 373 K/MM3 (134-434); WHITE BLOOD COUNT 11.3 K/mm3 (4.0-10.0)
[2016-05-27 13:08] LABS: METAMYELOCYTE 1 % (0-2); PLATELET ESTIMATE ADEQUATE (NORMAL)
--- NOTE | 2016-05-27 13:52 | PN ---
Teaching Attending Note Name of Resident: Michael Ferguson ATTENDING PHYSICIAN STATEMENT I saw and evaluated the patient. I reviewed the resident's note and discussed the case with the resident. I agree with the resident's findings and plan as documented. SUBJECTIVE: Comfortable with no acute distree, no shortness of breath, able to stand up. Patient feels stronger than before today. No new symptoms would like to go to [facility]. to [facility] for further therapy. OBJECTIVE: Vital Signs Temperature 98.2 F 05/27/16 10:00 Pulse Rate 110 H 05/27/16 10:00 Respiratory Rate 18 05/27/16 10:00 Blood Pressure 156/92 05/27/16 10:00 O2 Sat by Pulse Oximetry (%) 97 05/27/16 09:00 GENERAL: The patient is awake, alert, and fully oriented, in no acute distress. HEAD: Normal with no signs of trauma. EYES: PERRL, extraocular movements intact, sclera anicteric, conjunctiva clear. No ptosis. ENT: Ears normal, nares patent, oropharynx clear without exudates, moist mucous membranes. NECK: Trachea midline, full range of motion, supple. LUNGS: Breath sounds equal, clear to auscultation bilaterally, no wheezes, no crackles, no accessory muscle use. HEART: Regular rate and rhythm, S1, S2 without murmur, rub or gallop. ABDOMEN: Soft, nontender, nondistended, normoactive bowel sounds, no guarding, no rebound, no hepatosplenomegaly, no masses. EXTREMITIES: 2+ pulses, warm, well-perfused, no edema. Right 2nd digit is improving, no erythema and the swelling is down. NEUROLOGICAL: Cranial nerves II through XII grossly intact. Normal speech, gait not observed. But power 5/5 PSYCH: Normal mood, normal affect. SKIN: Warm, dry, normal turgor, no rashes or lesions noted CBCD WBC 11.3 K/mm3 (4.0-10.0) H 05/27/16 06:30 RBC 3.35 M/mm3 (4.00-5.60) L 05/27/16 06:30 Hgb 10.4 GM/dL (11.7-16.9) L 05/27/16 06:30 Hct 32.9 % (35.4-49) L 05/27/16 06:30 MCV 98.1 fl (80-96) H 05/27/16 06:30 MCHC 31.7 g/dl (32.0-35.9) L 05/27/16 06:30 RDW 17.0 % (11.9-15.9) H 05/27/16 06:30 Plt Count 373 K/MM3 (134-434) 05/27/16 06:30 MPV 8.7 fl (7.5-11.1) 05/27/16 06:30 CMP Sodium 138 mmol/L (136-145) 05/27/16 05:35 Potassium 5.2 mmol/L (3.5-5.1) H 05/27/16 05:35 Chloride 104 mmol/L (98-107) 05/27/16 05:35 Carbon Dioxide 26 mmol/L (21-32) D 05/27/16 05:35 Anion Gap 8 (8-16) 05/27/16 05:35 BUN 62 mg/dL (7-18) H 05/27/16 05:35 Creatinine 1.8 mg/dL (0.7-1.3) H 05/27/16 05:35 Creat Clearance w eGFR 38.06 (>60) 05/27/16 05:35 Random Glucose 84 mg/dL (74-106) 05/27/16 05:35 Calcium 9.4 mg/dL (8.5-10.1) 05/27/16 05:35 Total Bilirubin 0.2 mg/dL (0.2-1.0) 05/27/16 05:35 AST 52 U/L (15-37) H D 05/27/16 05:35 ALT 91 U/L (12-78) H 05/27/16 05:35 Alkaline Phosphatase 91 U/L (45-117) 05/27/16 05:35 Total Protein 5.5 g/dl (6.4-8.2) L 05/27/16 05:35 Albumin 2.1 g/dl (3.4-5.0) L 05/27/16 05:35 CARDIAC ENZYMES Creatine Kinase 41 IU/L (39-308) 05/21/16 19:17 Troponin I < 0.02 ng/ml (0.00-0.05) 05/21/16 19:17 Home Medications Medication Instructions Recorded Colchicine [Colcrys -] 0.6 mg PO DAILY 05/21/16 Losartan/Hydrochlorothiazide 1 each PO DAILY 05/21/16 [Losartan-Hctz 50-12.5 mg Tab] Metoprolol Succinate [Toprol Xl -] 100 mg PO BID 05/21/16 Nifedipine [Procardia Xl] 30 mg PO DAILY 05/21/16 Omeprazole 20 mg PO DAILY 05/21/16 Rosuvastatin [Crestor -] 10 mg PO DAILY 05/21/16 Tamsulosin HCl [Flomax] 0.4 mg PO DAILY 05/21/16 Ascorbate Calcium [Vitamin C] 1,000 mg PO DAILY 05/22/16 Aspirin [ASA -] 81 mg PO DAILY 05/22/16 Current Medications Generic Name Dose Route Start Last Admin Trade Name Freq PRN Reason Stop Dose Admin Acetaminophen 650 mg 05/22/16 12:23 05/23/16 21:10 Tylenol - PO 650 mg Q6H PRN Administration FEVER OR PAIN Clindamycin HCl 300 mg 05/22/16 18:00 05/27/16 12:59 Cleocin - PO 300 mg Q6HPO [facility] Administration Cyanocobalamin 1,000 mcg 05/22/16 16:30 05/27/16 09:48 Vitamin B12 Injection - IM 1,000 mcg DAILY [facility] Administration Diltiazem HCl 240 mg 05/22/16 10:00 05/27/16 09:47 Cardizem Cd - PO 120 mg DAILY [facility] Administration Folic Acid 1 mg 05/22/16 10:00 05/27/16 09:47 Folic Acid - PO 1 mg DAILY [facility] Administration Heparin Sodium (Porcine) 5,000 unit 05/21/16 22:00 05/27/16 06:39 Heparin - SQ 5,000 unit TID [facility] Administration Ampicillin Sodium/Sulbactam 100 mls @ 200 mls/hr 05/22/16 18:00 05/27/16 09:48 Sodium 3 gm/ Sodium Chloride IVPB 200 mls/hr Q8H-IV [facility] Administration Metoprolol Succinate 100 mg 05/22/16 10:00 05/27/16 09:48 Toprol Xl - PO 100 mg BID [facility] Administration Multivitamins/Minerals 1 each 05/22/16 10:00 05/27/16 09:48 Theragran-M PO 1 each DAILY [facility] Administration Pantoprazole Sodium 20 mg 05/22/16 10:00 05/27/16 09:48 Protonix - PO 20 mg DAILY [facility] Administration Prednisone 40 mg 05/26/16 10:00 05/27/16 09:47 Deltasone - PO 40 mg DAILY [facility] Administration Rosuvastatin Calcium 10 mg 05/22/16 10:00 05/27/16 09:47 Crestor - PO 10 mg DAILY [facility] Administration Tamsulosin HCl 0.4 mg 05/22/16 10:00 05/27/16 09:47 Flomax - PO 0.4 mg DAILY [facility] Administration Home Medications Medication Instructions Recorded Colchicine [Colcrys -] 0.6 mg PO DAILY 05/21/16 Losartan/Hydrochlorothiazide 1 each PO DAILY 05/21/16 [Losartan-Hctz 50-12.5 mg Tab] Metoprolol Succinate [Toprol Xl -] 100 mg PO BID 05/21/16 Nifedipine [Procardia Xl] 30 mg PO DAILY 05/21/16 Omeprazole 20 mg PO DAILY 05/21/16 Rosuvastatin [Crestor -] 10 mg PO DAILY 05/21/16 Tamsulosin HCl [Flomax] 0.4 mg PO DAILY 05/21/16 Ascorbate Calcium [Vitamin C] 1,000 mg PO DAILY 05/22/16 Aspirin [ASA -] 81 mg PO DAILY 05/22/16 ASSESSMENT AND PLAN: 65 yr old man with HTN, gout, CKD stage 2, afib, hx of triple bypass, and ETOH abuse BIBEMS from assisted living facility after being found immobile in his bed by a friend. For past four months he has progressively developed difficulties walking to the point that he couldn't get out of bed for the past one months # s/p sepsis secondary to right 2nd finger abscess s/p I&D done in ER , improving ,swelling is down with no erythema s/p on IV Unasyn and po cleocin continue Hand X ray can't r/o Osteomyelitis , MRI was done also cannot r/o Id on the case . As per to switch to PO antibiotic in am, MRI result Cannot r/o Osteomyelitis.As per to continue with oral antibiotics ampicillin 500mg po x oral ampicillin 500 mg every 8 hourly for another one week # Also HTN uncontrolled wiLL INCREASE the Cardizem to 240mg, discussed with / Francescone , is ok to increase the Cardizem # Acute Diarrhea 4x today , negative for CDiff for now. No need for any treatment for Cdiff. will BAcid to his regimen # Acute Paraplegia improved on IV steroid will continue , vitamin B12 level is normal /folic acid level is normal / phos. normal, potassium is normal , Physical therapy appreciated as patient is able to stand up with the help of the walker . # acute gout attack with hx of Gout started on Prednisone taprered dose for now, , Hold Colchicine, hold Allopurinol for now # UTI s/p Unasyn IV, IVF, (history of E. faecalis, Pseudomonas UTIs) completed # Acute Dehydration on IV fluid continue # Acute on Chronic renal failure On IVF cr.1.7--1.5--1.6 --1.5--1.8 today (his Baseline as per ) with K of 5.2today follow with # Malnourished with low Albumin level is 2.0 Nutrition consult appreciated continue nutrition at [facility] # Atrial flutter onToprol XL, Cardizem CD will increase to 240mg since Bp On a high side with Elevated HR , discussed with ok with the increase the dose of Cardizem to 240mg per day for rate control and better BP control ; not on anticoagulation since high risk for fall and noncompliance #CAD, history of CABG on aspirin, Toprol XL, Crestor #Hypertension on Toprol XL, Cardizem CD #Hyperlipidemia on Crestor # BPH on Flomax continue # History of alcohol abuse ;states he has been sober x 6 months ; Thiamine, folic acid, multivitamin continue DVT prophylaxis with lovenox. MRI of the index finger cannot r/o Osteo therefore will continue to TX the patient for 7 more days po antibiotic
[2016-05-27 15:07] VITALS: BP 143/95; PULSE 85; TEMP 98.6
--- NOTE | 2016-05-27 15:10 | DS ---
Physical Exam: SUBJECTIVE: Patient seen and examined Stable for discharge. pain and mobility improved. OBJECTIVE: Vital Signs Period Temp Pulse Resp BP Sys/Reed Pulse Ox Last 24 Hr 96.4 F-98.6 F 85-119 18-18 142-158/78-95 96-97 PHYSICAL EXAM GENERAL: The patient is awake, alert, and fully oriented, in no acute distress. EYES: PERRL, extraocular movements intact, sclera anicteric, conjunctiva clear. ENT: oropharynx clear without exudates, poor dentition, moist mucous membranes, no LAD LUNGS: Breath sounds equal, clear to auscultation bilaterally, no wheezes, no crackles HEART: irregular rhythm, rate controlled, S1, S2 ABDOMEN: Soft, nontender, nondistended, normoactive bowel sounds EXTREMITIES: 2+ pulses, warm, well-perfused, no edema. UE: sensation intact throughout, no joint pain, multiple joints with tophi. right index finger with swelling; trace erythema over swelling, no discharge, nontender. LE: able to bend at knees, sensation intact, no joint pain in knees, toes or ankles, no joint erythema or tenderness. 5/5 strength b/l NEUROLOGICAL: Normal speech PSYCH: Normal mood, normal affect. LABS Laboratory Results - last 24 hr 05/27/16 05/27/16 05:35 06:30 WBC 11.3 H RBC 3.35 L Hgb 10.4 L Hct 32.9 L MCV 98.1 H MCHC 31.7 L RDW 17.0 H Plt Count 373 MPV 8.7 Neutrophils % 87.0 H Lymphocytes % 11.0 D Monocytes % 0.0 L D Eosinophils % 0.0 Basophils % 0.0 Band Neutrophils 0.0 D Metamyelocytes 1 Myelocytes 1 D Differential Comment Manual diff done Platelet Estimate Adequate Sodium 138 Potassium 5.2 H Chloride 104 Carbon Dioxide 26 D Anion Gap 8 BUN 62 H Creatinine 1.8 H Creat Clearance w eGFR 38.06 Random Glucose 84 Calcium 9.4 Phosphorus 3.9 D Total Bilirubin 0.2 AST 52 H D ALT 91 H Alkaline Phosphatase 91 Total Protein 5.5 L Albumin 2.1 L Microbiology 05/27/16 09:50 Stool Clostridium difficile Antigen (RUSTY) - Final 05/27/16 09:50 Stool Clostridium difficile Toxin Assay - Final 05/22/16 08:30 Blood - Peripheral Venous Blood Culture - Final NO GROWTH AFTER 5 DAYS INCUBATION 05/22/16 08:25 Blood - Peripheral Venous Blood Culture - Final NO GROWTH AFTER 5 DAYS INCUBATION 05/21/16 17:00 Finger - Right Index Finger Wound Culture - Final Enterococcus Faecalis Staphylococcus Coagulase Neg Streptococcus Viridans HOSPITAL COURSE: Date of Admission:05/21/16 - Date of Discharge: 05/27/16 65 yr old man with HTN, gout, CKD stage 2, afib, hx of triple bypass, and ETOH abuse BIBEMS from assisted living facility after being found immobile in his bed by a friend. For past 2 two weeks, prior to ED visit, he had progressively developed difficulty getting out of bed and generalized weakness. He was found to have an elevated white count, tachycardic with atrial flutter/fibrillation. He had multiple joints with increased warmth and tenderness. Given his medication noncompliance, his immobility was likely from pain caused by acute gout flare. Head CT was negative for acute hemorrhage, infarct or mass. Lumbar spine MRI was negative for abscess or spinal stenosis or nerve impingement. He was evaluated by Dr. Gonsales, neurosurgeon. There was no acute neurosurgical intervention required. He was started on prednisone 60mg daily with improvement. He was able to work with physical therapy. He also presented with swelling, erythema and discharge from right index abscess located distally. He underwent I&D in the ED that expressed 10cc of pus and some blood. Hand xray showed bone destruction, hand MRI showed inflammatory changes but osteomyelitits could not be ruled out. He was treated with 6 days of cleocin 300mg q6hr po and unasyn 3gm q8hr IVPB which improved his symptoms. He is to continue Ampicillin 500mg q8hr for 7 days. He was restarted on Cardizam CD 120mg po daily and Toprol XL 100 BID for rate control and hypertension. He required an increase in cardizam CD to 240 for better blood pressure control. His chronic kidney disease was stable with creatinine at his baseline, however he did have elevated potassium to 5.3. He was changed to renal diet. Medication changes: Cardizem CD 240po qdaily Taper prednisone start allopurinol after finishing the prednisone taper ampicillin 500mg po q8hr for 7 days Recommendations: No MIAN/ARB, K-sparing diuretics Low potassium diet encourage good oral hydration Avoid NSAIDs Minutes to complete discharge: 44 Discharge Summary Reason For Visit: PARONYCHIA; UTI; TRANSIENT A-FIB OR FLUTTER Current Active Problems Acute paraplegia (Acute) Acute renal failure (Acute) Alcohol abuse with alcohol-induced disorder (Acute) Alcoholic ketoacidosis (Acute) Ataxia (Acute) Ataxic paraplegia (Acute) Atrial fib/flutter, transient (Acute) Atrial fibrillation with RVR (Acute) Atrial flutter with rapid ventricular response (Acute) DVT prophylaxis (Acute) Dehydration (Acute) Generalized weakness (Acute) Gout attack (Acute) Paronychia (Acute) Condition: Improved - Instructions Diet, Activity, Other Instructions: Take cardizem 240m daily and Toprol XL 100mg twice daily for your blood pressure and irregular heart rate. Take Ampicillin 500mg every 8 hours for 7 days. Take Bacid 2x tablet daily for 10 days. Taper the prednisone over the next 7 days: 30mg for 3 days starting tomorrow 20mg for 2 days 10mg for 1 day Start allopurinal 100mg 1 tablet daily after finishing the prednisone taper. Avoid alcohol. Continue taking a multivitamin and folic acid daily. Follow-up with your primary care physician, Dr. Porras in 2 weeks Follow-up with Dr. Tiwari, your field support rep in the office in 2 weeks. Referrals: Alber Simmons MD [Staff Physician] - Mohsen Ni MD [Staff Physician] - Edgar Valdovinos MD [Staff Physician] - Disposition: [facility] - Home Medications Comprehensive Discharge Medication List: Ambulatory Orders Metoprolol Succinate [Toprol XL -] 100 mg PO BID 05/21/16 Omeprazole 20 mg PO DAILY 05/21/16 Rosuvastatin [Crestor -] 10 mg PO DAILY 05/21/16 Tamsulosin HCl [Flomax -] 0.4 mg PO DAILY 05/21/16 Ascorbate Calcium [Vitamin C] 1,000 mg PO DAILY 05/22/16 Aspirin [ASA -] 81 mg PO DAILY 05/22/16 Allopurinol [Zyloprim -] 100 mg PO DAILY #10 tab 05/27/16 Diltiazem Cd [Cardizem Cd -] 120 mg PO DAILY cap.cd.24h 05/27/16 Folic Acid - 1 mg PO DAILY tablet 05/27/16 Lactobacillus Acidophilus [Bacid -] 1 each PO DAILY #10 capsule 05/27/16 Rosuvastatin [Crestor -] 10 mg PO DAILY tablet 05/27/16 This patient is new to me today: No Emergency Visit: No Critical Care patient: No - Discharge Referral Referred to [facility] No
--- NOTE | 2016-05-27 15:30 | PN ---
Progress Note, Physician History of Present Illness: patient stable doing well thumb looks well no complaints - Current Medication List Current Medications: Active Medications Acetaminophen (Tylenol -) 650 mg PO Q6H PRN PRN Reason: FEVER OR PAIN Last Admin: 05/23/16 21:10 Dose: 650 mg Clindamycin HCl (Cleocin -) 300 mg PO Q6HPO [facility] Last Admin: 05/27/16 12:59 Dose: 300 mg Cyanocobalamin (Vitamin B12 Injection -) 1,000 mcg IM DAILY [facility] Last Admin: 05/27/16 09:48 Dose: 1,000 mcg Diltiazem HCl (Cardizem Cd -) 120 mg PO DAILY [facility] Last Admin: 05/27/16 09:47 Dose: 120 mg Folic Acid (Folic Acid -) 1 mg PO DAILY [facility] Last Admin: 05/27/16 09:47 Dose: 1 mg Heparin Sodium (Porcine) (Heparin -) 5,000 unit SQ TID [facility] Last Admin: 05/27/16 15:00 Dose: 5,000 unit Ampicillin Sodium/Sulbactam (Sodium 3 gm/ Sodium Chloride) 100 mls @ 200 mls/ hr IVPB Q8H-IV [facility] Last Admin: 05/27/16 09:48 Dose: 200 mls/hr Metoprolol Succinate (Toprol Xl -) 100 mg PO BID [facility] Last Admin: 05/27/16 09:48 Dose: 100 mg Multivitamins/Minerals (Theragran-M) 1 each PO DAILY [facility] Last Admin: 05/27/16 09:48 Dose: 1 each Pantoprazole Sodium (Protonix -) 20 mg PO DAILY [facility] Last Admin: 05/27/16 09:48 Dose: 20 mg Prednisone (Deltasone -) 40 mg PO DAILY [facility] Last Admin: 05/27/16 09:47 Dose: 40 mg Rosuvastatin Calcium (Crestor -) 10 mg PO DAILY [facility] Last Admin: 05/27/16 09:47 Dose: 10 mg Tamsulosin HCl (Flomax -) 0.4 mg PO DAILY [facility] Last Admin: 05/27/16 09:47 Dose: 0.4 mg - Objective Vital Signs: Vital Signs Temperature 98.6 F 05/27/16 15:07 Pulse Rate 85 05/27/16 15:07 Respiratory Rate 18 05/27/16 15:07 Blood Pressure 143/95 05/27/16 15:07 O2 Sat by Pulse Oximetry (%) 97 05/27/16 09:00 Constitutional: Yes: No Distress, Calm Neck: Yes: Supple, Trachea Midline Cardiovascular: Yes: Regular Rate and Rhythm Respiratory: Yes: Regular, CTA Bilaterally Gastrointestinal: Yes: Normal Bowel Sounds, Soft Extremities: Yes: Other (index finger stable rt) Neurological: Yes: Alert, Oriented Psychiatric: Yes: Alert Labs: CBC, BMP 05/27/16 06:30 05/27/16 05:35 INR, PTT INR 1.33 (0.82-1.09) H D 05/21/16 13:16 Assessment/Plan #Sepsis (tachycardia, wbc of 22) UTI(u/a with leuk +, elevated WBC) and Abscess in right index finger #Dehydration/generalized weakness - #Gout #Afib/Aflutter #HTN #BPH #CAD #Etoh abuse bilateral cellulitis of the legs after looking at the history and looking at the patient his patient has abscess of the finger which has been drained plan we can switch patient to oral ampicillin 500 mg every 8 hourly for another one week rest ct as per the team patient doing well
--- NOTE | 2016-05-27 15:51 | PN ---
Progress Note (short form) - Note Progress Note: Renal follow up for CKD Pt seen and examined at the bedside No acute complaints denies any sob, chest pain, N/V/D able to ambulate to hallway Vital Signs Temperature 98.6 F 05/27/16 15:07 Pulse Rate 85 05/27/16 15:07 Respiratory Rate 18 05/27/16 15:07 Blood Pressure 143/95 05/27/16 15:07 O2 Sat by Pulse Oximetry (%) 97 05/27/16 09:00 Intake & Output 05/24/16 05/25/16 05/26/16 05/27/16 23:59 23:59 23:59 23:59 Intake Total 3300 1875 240 220 Output Total 1700 7666 989 9454 Balance 1600 334 -490 -[phone] Gen: NAD, awake and alert CVS: RRR, No M/R Lungs: CTA, no rales Abd: soft NT/ND Ext: No edema, clubbing or cyanosis CBC, BMP 05/27/16 15:30 05/27/16 05:35 Current Medications Acetaminophen (Tylenol -) 650 mg PO Q6H PRN PRN Reason: FEVER OR PAIN Last Admin: 05/23/16 21:10 Dose: 650 mg Clindamycin HCl (Cleocin -) 300 mg PO Q6HPO [facility] [place] Last Admin: 05/27/16 12:59 Dose: 300 mg Cyanocobalamin (Vitamin B12 Injection -) 1,000 mcg IM DAILY [facility] [place] Last Admin: 05/27/16 09:48 Dose: 1,000 mcg Diltiazem HCl (Cardizem Cd -) 120 mg PO DAILY [facility] [place] Last Admin: 05/27/16 09:47 Dose: 120 mg Folic Acid (Folic Acid -) 1 mg PO DAILY [facility] [place] Last Admin: 05/27/16 09:47 Dose: 1 mg Heparin Sodium (Porcine) (Heparin -) 5,000 unit SQ TID [facility] [place] Last Admin: 05/27/16 15:00 Dose: 5,000 unit Ampicillin Sodium/Sulbactam (Sodium 3 gm/ Sodium Chloride) 100 mls @ 200 mls/ hr IVPB Q8H-IV [facility] [place] Last Admin: 05/27/16 09:48 Dose: 200 mls/hr Metoprolol Succinate (Toprol Xl -) 100 mg PO BID [facility] [place] Last Admin: 05/27/16 09:48 Dose: 100 mg Multivitamins/Minerals (Theragran-M) 1 each PO DAILY [facility] [place] Last Admin: 05/27/16 09:48 Dose: 1 each Pantoprazole Sodium (Protonix -) 20 mg PO DAILY [facility] Last Admin: 05/27/16 09:48 Dose: 20 mg Prednisone (Deltasone -) 40 mg PO DAILY [facility] [place] Last Admin: 05/27/16 09:47 Dose: 40 mg Rosuvastatin Calcium (Crestor -) 10 mg PO DAILY [facility] [place] Last Admin: 05/27/16 09:47 Dose: 10 mg Tamsulosin HCl (Flomax -) 0.4 mg PO DAILY [facility] [place] Last Admin: 05/27/16 09:47 Dose: 0.4 mg A/p 65 year old Gentleman with PMhx of CKD Stage 3 (baseline Cr 1.4-1.8), Gout, Afib , CAD s/p Bypass, Hx of ETOH abuse (quit drinking in March) presented with complaints of lower extremity weakness that has been progressive over the course of 3 weeks. #CKD Stage 3 with hx of subnephrotic proteinuria Cr slightly above baseline but no acute intervention needed at this time BUN elevated secondary to steroids ok to be discharged and follow up as outpatient encouraged good oral hydration and avoidance of nsaids #Mild Hyperkalemia No MIAN/ARB, K-sparing diuretics Low potassium diet #LE weakness continue w/u and management as per primary and neurology improving Edgar Valdovinos DO
[2016-05-27 16:15] LABS: MCH 31.6 pg (25.7-33.7); MCHC 32.8 g/dl (32.0-35.9); MEAN CELL VOLUME 96.3 fl (80-96); MEAN PLT VOLUME 8.7 fl (7.5-11.1); PLATELET COUNT 436 K/MM3 (134-434); RDW 17.4 % (11.9-15.9); WHITE BLOOD COUNT 12.5 K/mm3 (4.0-10.0)
[2016-05-27 18:26] LABS: PLATELET ESTIMATE SLT INCREASED (NORMAL)
== END 2016-05-27 17:45 | DRG 872 ==
LOC: JER 12:40 → JERBED 18:02 → J4S 20:23
PROVIDERS: ADMIT Internal Medicine; ATTEND Internal Medicine
PROC: 0H9FXZZ Drainage of Right Hand Skin, External Approach (ICD-10-PCS; principal; 2016-05-21)
DX: A41.9 Sepsis, unspecified organism (principal); N39.0 Urinary tract infection, site not specified; I48.92 Unspecified atrial flutter; G82.20 Paraplegia, unspecified; E46 Unspecified protein-calorie malnutrition; G32.0 Subacute combined degeneration of spinal cord in diseases classified elsewhere; N17.9 Acute kidney failure, unspecified; E87.2 Acidosis; M86.8X4 Other osteomyelitis, hand; L03.011 Cellulitis of right finger; E78.5 Hyperlipidemia, unspecified; I25.10 Atherosclerotic heart disease of native coronary artery without angina pectoris; Z95.1 Presence of aortocoronary bypass graft; I48.91 Unspecified atrial fibrillation; N40.0 Benign prostatic hyperplasia without lower urinary tract symptoms; M10.9 Gout, unspecified; I12.9 Hypertensive chronic kidney disease with stage 1 through stage 4 chronic kidney disease, or unspecified chronic kidney disease; E86.0 Dehydration; N18.3 Chronic kidney disease, stage 3 (moderate); K21.9 Gastro-esophageal reflux disease without esophagitis; Z87.891 Personal history of nicotine dependence; E53.8 Deficiency of other specified B group vitamins; F10.20 Alcohol dependence, uncomplicated; M48.06 Spinal stenosis, lumbar region; E87.5 Hyperkalemia; R19.7 Diarrhea, unspecified; B95.2 Enterococcus as the cause of diseases classified elsewhere; B96.89 Other specified bacterial agents as the cause of diseases classified elsewhere; B95.7 Other staphylococcus as the cause of diseases classified elsewhere
CPT/HCPCS: 36415; 70450-TC; 71010-TC; 72158-TC; 73130-TC-RT; 73218-TC; 80048; 80053; 80307; 81003; 81015; 82140; 82550; 82570; 82607; 82747; 83036; 83605; 83690; 83735; 84100; 84156; 84443; 84484; 84550; 85014; 85025; 85610; 85651; 87040; 87070; 87077; 87086; 87186; 87205; 87324; 87449; 93005; 93010; 97116-GP; 97161-GP; 99285-25; A9576; J1644